=== PATIENT | female | born 1940 | race Caucasian/White ===

== ENCOUNTER 2016-04-17 19:33 | Inpatient (IN) | payer MEDICARE ==
[~2016-04-17] VITALS: Ht 170.2 cm; Wt 86.6 kg
[~2016-04-17 19:33] MED LIST: ASPI325T32 PO; CYAN250014 PO; EZET10TA PO; FELO5TAB4 PO; FURO40TA4 PO; GEMF600T3 PO; KEN1C TOP; METO25TA6 PO; MULT-1018 PO; RANI150T11 PO; TERB250T11 PO
[2016-04-17 21:14] VITALS: PULSE 72
[2016-04-17 21:18] VITALS: BP 124/52; PULSE 72; RESP 18; O2SAT 98
[2016-04-17] MEDS ORDERED: SODIUM CHLORIDE 0.9% IV SCH (22:00)
[2016-04-17] MEDS ORDERED: FAMOTIDINE IV SCH (22:00)
[2016-04-17] MEDS ORDERED: levoFLOXacin Inj 750 MG in IV Premix 1 EACH IV ONE (22:30)
[2016-04-17] MEDS: 0.9% Sodium Chloride 1,000 ML IV SCH (23:01)
[2016-04-17] MEDS ORDERED: Potassium Chloride Inj 20 MEQ in Dextrose 5% 250 ML IV ONE (23:20)
--- NOTE | 2016-04-17 23:22 | PCM.HPMED ---
Subjective Date of Service Apr 17, 2016 Primary Provider: Admitting Physician: Dipesh Carolina MD Primary Care Physician: Fredi Rivas MD Attending Physician: Dipesh Carolina MD Admit Status: Direct Admit Chief Complaint: Abdominal pain History of Present Illness: Patient is a 75 year old female with a history of GERD, gastric ulcers, peripheral vascular disease, and aortic stenosis. She is a direct transfer to [facility] [place] She presented to that ED on 04/17/16 with a 24 hour history of severe, constant abdominal pain. It is predominantly located in the RUQ and she describes it as sharp in nature. It caused nausea but no vomiting. She has had diarrhea but denies bloody stool or black looking stool. It is similar to the abdominal pain she had in the past when she had ulcers. She reports having been out of her ranitidine for the last two weeks. She denies fever, chills, chest pain, shortness of breath or edema. She has not had any other cold or flu like symptoms such as sore throat or cough. She has chronic nasal drainage and wheezing that has not worsened recently. She denies dysuria , hematuria. Her last EGD and colonoscopy were March 2015. Lab results sent over with the patient show a WBC 14.5, Hgb 9.3, Hct 26.9, platelets 213, sodium 139, potassium 3.3, chloride 97, CO2 26, BUN 65, Creatinine 2.91, glucose 90. Total bilirubin 0.6, ALT 10, AST 24. Call for transfer to [facility] made at 5:45PM. Also received recommendations from Dr. Mcclellan of GI. 2L IV fluids given as well as one dose of Zosyn. Patient admitted to [facility] for further evaluation. Review of Systems: A comprehensive review of systems was conducted with the patient and found to be negative except as above in the history of present illness. Allergies Coded Allergies: Glphxku-Dcu-Ung Reductase Inhibitor (Verified Allergy, Unknown, muscle pains, 03/08/16) codeine (Verified Allergy, Unknown, 03/08/16) erythromycin base (Verified Allergy, Unknown, 03/08/16) meperidine (Verified Allergy, Unknown, 03/08/16) omeprazole (Verified Allergy, Unknown, 03/08/16) Home Medications Reviewed list with patient and verified: Aspirin 325 mg daily Vitamin B12 (if she remembers to take it) Dronedarone 400 mg daily Felodipine 5 mg daily Furosemide 40 mg daily Gemfibrozil 600 mg daily Metoprolol tartrate 25 mg daily Ranitidine 150 mg daily Zetia 10 mg daily PMH Aortic stenosis, possibly rheumatic valve disease Carotid artery stenosis CKD stage 4 COPD Degenerative joint disease HTN HLP Peripheral vascular disease Upper GI bleed Surgical History Appendectomy Back surgery Breast biopsy Carotid endarterectomy Cataract extraction Cholecystectomy Iliac artery stent placement Ileofemoral endarterectomy Proximal profunda endarterectomy Tubal ligation Family History Brother with history of stomach ulcers; no other family history of GI disease Father - leukemia Family history of HTN, HLP, CAD Social History Hx Alcohol Use: No Hx Substance Use: No Hx Tobacco Use: Yes Smoking Status: Light Tobacco Smoker (60 pack year history; still smokes "sometimes" having had 2-3 cigarettes yesterday) Exam Vital Signs Vital Sign - Last Date Time Temp Pulse Resp B/P Pulse Ox O2 Delivery O2 Flow Rate FiO2 04/17/16 21:57 Supplement Oxygen 04/17/16 21:18 36.9 72 18 124/52 98 3.00 Exam Alert and oriented x3, no acute distress Head atraumatic, normocephalic PERRLA, EOMI, sclera anicteric Mucus membranes dry, no oral thrush observed No cervical lymphadenopathy, neck supple, nontender No JVD noted Cardiac tones regular rate and rhythm with IV/ systolic murmur appreciated throughout the chest radiating into the neck (loudest at RUSB) Lungs wheezing heard in the upper airways anteriorly, clear otherwise RUQ abdominal tenderness, non-distended, normoactive bowel tones, soft Correia absent Radial pulses normal and equivalent bilaterally, dorsalis pedis pulses difficult to appreciate bilaterally No cyanosis, clubbing or edema No ulcerations/open wounds Cranial nerves appear to be fully intact, normal speech, patient can move upper and lower limbs grossly Lab and Diagnostics X-Rays, CTs and MRIs CT abd/pelvis (from [place]): There are dense calcifications of the abdominal aorta. The patient has undergone bilateral iliac artery stenting. There are also a moderate amount of scattered arterial calcifications. There is a nonobstructing 3 mm stone within the mid-right kidney. There is a nonobstructing 1 mm stone within the upper pole of the left kidney. There is nonspecific stranding surrounding both kidneys. Within the limitations of an unenhanced exam, the rest of the solid viscera are unremarkable. There are cholecystectomy clips in the right upper quadrant. There is abnormal thickening of the cecum and descending colon with pericolonic stranding. The bowel wall measures up to 15 mm in thickness. The abnormal thickening extends up to the hepatic flexure. The transverse colon is unremarkable. The terminal ileum is unremarkable. The vermiform appendix is not visualized. There is edema tracking within the paracolic gutters bilaterally nonspecifically. The urinary bladder is unremarkable. The uterus and adnexa are unremarkable by CT. There are degenerative changes at the lumbosacral junction. There is no adenopathy. There is no free air or significant free fluid. Radiologist interpretation Assessment & Plan Patient is a 75 year old female with a history of GERD, gastric ulcers, peripheral vascular disease, and aortic stenosis. She is a direct transfer to [facility] from [place]. She presented to that ED on 04/17/16 with a 24 hour history of severe, constant abdominal pain. History of upper GI bleeding with ulceration. CT done at [place] shows possible ischemic colitis. Admitted to [facility] for further evaluation and management of ischemic colitis. 1. Possible ischemic colitis, acute, present on admission. - Begin Flagyl and ciprofloxacin. - NPO except some ice chips, then nothing after midnight. - IV fluids started - NS 100 ml/hr. - GI consulted and we appreciate their input. 2. History of gastric ulcers with possible acute GI bleed, present on admission. - Guaiac positive stool. Hasn't taken H2 blockers in two weeks. - GI has been consulted and we appreciate their input. - Re-start IV H2 blockers at this time. - NPO after midnight. - Continue to monitor Hgb/Hct. 3. Atrial fibrillation, chronic, presume stable. - Continue telemetry. - Only on full dose aspirin for anticoagulation. CHADS-VASC score 5 so something more should be considered. - Patient reportedly takes dronedarone 400 mg daily and metoprolol tartrate 25 mg daily. These medications need to be verified tomorrow AM. 4. Peripheral vascular disease, chronic, presume stable. - Continue gemfibrozil 600 mg daily, Zetia 10 mg daily. 5. Hypertension, chronic, presume stable. - Continue felodipine 5 mg daily. 6. Possible COPD. - No confirmatory testing in patient with 60 pack year history of smoking, worsening SOB with exertion, and wheezing. - No supplemental O2 at baseline. No medications for this at home. - Albuterol nebs available Q2 PRN. - O2 saturation goals 92-96%. - Recommend outpatient evaluation with PFT's. 7. CKD stage 4, chronic, presume stable. - Uncertain creatinine baseline. - Continue to monitor BMP. - Currently receiving IV fluids as patient is NPO. 8. Hypokalemia, acute, present on admission. - 20 mEq replacement given one time. - Continue to monitor BMP. 9. Medication reconciliation. - Discussed medication list with patient. She was not 100% certain of regimen. Please verify tomorrow AM dosing of all medications. Patient admitted under observation status with expected length of stay less than 2 midnights for severity of present symptoms, complexities of treatment plan and risk for adverse events. PCP Pee Rivas MD GI Prophylaxis: H2 shabnam VTE Prophylaxis Indicated: Contraindicated (Possible GI bleed) VTE Prophylaxis: SCDs Resuscitation Status: CPR: Attempt Resuscitation Attending Statement The patient was seen and examined together with Dr. Patel on 04/17 and I agree with the history, exam and plan as outlined in the note above. copies to: Fredi Rivas MD, Jennifer E DO Apr 17, 2016 22:39 Dipesh Carolina MD Apr 18, 2016 00:51
[2016-04-18] VITALS (8 sets, daily range): BP systolic 102–119; BP diastolic 35–53; PULSE 77–123; RESP 12–18; O2SAT 94–98
[2016-04-18 01:55] LABS: APPEARANCE,URINE CLEAR (CLEAR,HAZY); COLOR,URINE YELLOW (YELLOW); OCCULT BLOOD,URINE NEGATIVE (NEGATIVE); PH,URINE 5.5 (5.0-8.0); UROBILINOGEN,URINE NORMAL (NORMAL)
[2016-04-18] MEDS: metroNIDAZOLE Inj 500 MG in IV Premix 1 EACH IV SCH ×4 (02:10→20:19)
[2016-04-18 04:30] LABS: BASOPHILS % (AUTO) 0.1 % (0-3); EOSINOPHILS % (AUTO) 0 % (0-5); MONOCYTES % (AUTO) 6.7 % (4-12); Mean Corpuscular Hemoglobin 36.2 pg (27.0-35.0); Mean Corpuscular Volume 111.5 fL (81-100); NEUTROPHILS % (AUTO) 84.7 % (40-74); Platelet Count 146 bil/L (150-400)
[2016-04-18 04:56] LABS: Magnesium 1.8 mg/dL (1.6-2.6); Phosphorus 4.6 mg/dL (2.5-4.9)
--- NOTE | 2016-04-18 05:40 | NUR ---
PCC Admit Note Admitted patient @ [address] [facility] from [place] to [facility] 2021 for ischemic colitis, low H/H. Pt alert and oriented x 3, reported with generalized body weakness, on bedrest through the night, denies any abd pain. Started IV NS @ 100cc/hr, started levaquin and flagyl, K+ 3.3 [facility] ADMINISTRATOR, given kcl 20 meq IV, repeat K+ 3.7, AM H/H down to 7.9/24.3, Dr. Patel notified of H/H trends, ordered crossmatch, draw and hold for prbc. No signs of bleeding, no BM. Kept NPO
[2016-04-18] MEDS: 0.9% Sodium Chloride 1,000 ML IV SCH ×2 (08:30→20:18)
[2016-04-18] MEDS: Felodipine 5 mg ER24 Tablet PO SCH ×2 (08:40→20:21)
--- NOTE | 2016-04-18 12:38 | PCM.CHPMED ---
Subjective Date of Service: Apr 18, 2016 Provider requesting consult: Melody Patel DO Primary Physician: Admitting Physician: Dipesh Carolina MD Primary Care Physician: Fredi Rivas MD Attending Physician: Dipesh Carolina MD Chief Complaint: Chief Complaint: Abdominal pain History of Present Illness: Patient is a 75 year old female with a history of GERD, gastric ulcers, peripheral vascular disease, and aortic stenosis. She is a direct transfer to [facility] from [place]. She presented to that ED on 04/17/16 with a 24 hour history of severe, constant abdominal pain. It is predominantly located in the RUQ and she describes it as sharp in nature. It caused nausea but no vomiting. She has had diarrhea but denies bloody stool or black looking stool. It is similar to the abdominal pain she had in the past when she had ulcers. She reports having been out of her ranitidine for the last two weeks. She denies fever, chills, chest pain, shortness of breath or edema. She denies dysuria, hematuria. Her last EGD and colonoscopy were March 2015. EGD showed bleeding ulcers, colonoscopy was normal. Pill cam on September 2015 was apparently normal. She is on Aspirin for her afib but not warfarin due to her history of upper GI bleed. She was scheduled for evaluation for a left atrial appendage occlusion device in the near future. Lab results sent over with the patient show a WBC 14.5, Hgb 9.3, Hct 26.9, platelets 213, sodium 139, potassium 3.3, chloride 97, CO2 26, BUN 65, Creatinine 2.91, glucose 90. Total bilirubin 0.6, ALT 10, AST 24. Review of Systems: Comprehensive review of systems conducted and was negative except for the pertinent positives listed above. PMH Past Medical History Aortic stenosis, possibly rheumatic valve disease Carotid artery stenosis CKD stage 4 COPD Degenerative joint disease HTN HLP Peripheral vascular disease Upper GI bleed Surgical History Appendectomy Back surgery Breast biopsy Carotid endarterectomy Cataract extraction Cholecystectomy Iliac artery stent placement Ileofemoral endarterectomy Proximal profunda endarterectomy Tubal ligation Allergies: Coded Allergies: Bcdirsl-Lar-Jfx Reductase Inhibitor (Verified Allergy, Unknown, muscle pains, 03/08/16) codeine (Verified Allergy, Unknown, 03/08/16) erythromycin base (Verified Allergy, Unknown, 03/08/16) meperidine (Verified Allergy, Unknown, 03/08/16) omeprazole (Verified Allergy, Unknown, 03/08/16) Family History Family History Brother with history of stomach ulcers; no other family history of GI disease Father - leukemia Family history of HTN, HLP, CAD Social History Hx Alcohol Use: NoAlcoholic Drinks Per Day: "a glass of wine"Hx Substance Use : NoHx Tobacco Use: Yes Smoking Status: Light Tobacco Smoker (60 pack year history; still smokes "sometimes" having had 2-3 cigarettes yesterday) Exam Vital Signs Vital Sign - Last Date Time Temp Pulse Resp B/P Pulse Ox O2 Delivery O2 Flow Rate FiO2 04/18/16 08:22 36.8 83 16 108/35 96 Nasal Cannula 2.00 Intake and Output 04/17/16 04/17/16 04/18/16 Cumulative From/Thru 15:00 23:00 07:00 04/17/16 21:07 - 04/18/16 05:44 Intake Total 1133 ml 1133 ml Output Total 550 ml 550 ml Balance 583 ml 583 ml Intake Oral 50 ml 50 ml IV Total 1083 ml 1083 ml Output Urine Total 550 ml 550 ml # Voids 2 2 # Bowel Movements 0 0 Additional Information: General: Alert, Oriented X3, Cooperative, Mild distress 2/2 pain Head: Normocephalic, atraumatic. External ears normal. Eyes: PERRLA, EOMI. Anicteric sclerae. Mouth: Mouth Normal, Mucous Membranes Moist/[place] Neck: Neck supple with full range of motion. Chest & Lungs: Clear to auscultation bilaterally with no crackles, wheezes, or rhonchi. Cardiovascular: Regular Rate/Rhythm, Normal S1, Normal S2, Loud systolic murmur heard at right upper sternal border. Abdomen: Significant RUQ tenderness with rebound. Non-distended, No masses, Normoactive bowel tones Musculoskeletal: Normal Range of Motion Extremities: No cyanosis/clubbing/edema bilaterally Neurological: Grossly Neurologically Intact, Normal Speech Lab and Diagnostics Result Diagram: 04/18/16 0350 04/18/16 0350 Assessment & Plan Assessment Patient is a 75 year old female with a history of GERD, gastric ulcers, peripheral vascular disease, afib, and aortic stenosis. She is a direct transfer to [facility] from [place]. She presented to that ED on 04/17/16 with a 24 hour history of severe, constant abdominal pain. History of upper GI bleeding with ulceration. CT done [place] shows possible ischemic colitis. Admitted to [facility] for further evaluation and management of ischemic colitis. Today, abdominal pain has improved. She said it went from 9 out of 10 yesterday to 4 out of 10. Possible ischemic colitis, acute. - Pt has history of afib not adequately anticoagulated, severe abdominal pain, CT findings suspicious of ischemic colitis. Right sided colitis carries a poorer prognosis than left-sided. Unfortunately, given her Stage 4 CKD (Cr 2.81) , angiography is not plausible at this time. Will discuss possible colonoscopy and further management with Surgery. The indication for colonoscopy as for enhanced bowel diagnosis. However risk for perforation exists. And this risks discussed with the family and the patient. - Stool PCR pending - Continue Flagyl and ciprofloxacin. - IV fluids started - NS 100 ml/hr. History of gastric ulcers with possible acute GI bleed - Pt denies dark stool but has history of gastric ulcers and had guaiac positive stool. Hasn't taken H2 blockers in two weeks. Hb dropped from 8.5 to 7.9 overnight, but this may be hemodilution. - Re-start IV H2 blockers at this time. - Continue to monitor Hgb/Hct. - Transfuse if necessary; consider that she has a history of peripheral vascular disease and aortic stenosis. Atrial fibrillation, chronic - Continue telemetry. - Only on full dose aspirin for anticoagulation. CHADS-VASC score 5. Scheduled for eval for [place] appendage occlusion device. Agree with above. I seen and examined the patient with the resident. Problems: GI Prophylaxis: H2 shabnam VTE Prophylaxis Indicated: Contraindicated (Possible GI bleed) VTE Prophylaxis: SCDs VTE Mechanical Devices: Intermittant Pneumatic CD Resuscitation Status: CPR: Attempt Resuscitation Erasto Medina Apr 18, 2016 12:38 Kalyan Mcclellan MD Apr 18, 2016 13:44
--- NOTE | 2016-04-18 13:20 | NUR ---
Abd Pain Pt c/o abd pain, rating between 2-4/10. PRN Morphine 2mg IV effective for pain. Pt has denied any nausea. VSS, Tele SR in the 70's. Pt able to meet with physician and review plan of care. Cont to monitor.
--- NOTE | 2016-04-18 14:15 | PCM.PNMED ---
Subjective Date of Service Apr 18, 2016 Subjective She is still having right lower quadrant abdominal pain. No nausea. No diarrhea this morning. No fevers or chills. No chest pain or shortness of breath. Exam Vital Signs Vital Sign - Last Date Time Temp Pulse Resp B/P Pulse Ox O2 Delivery O2 Flow Rate FiO2 04/18/16 12:49 36.7 78 16 102/43 98 Nasal Cannula 2.00 Intake and Output 04/17/16 04/17/16 04/18/16 Cumulative From/Thru 15:00 23:00 07:00 04/17/16 21:07 - 04/18/16 05:44 Intake Total 1133 ml 1133 ml Output Total 550 ml 550 ml Balance 583 ml 583 ml Intake Oral 50 ml 50 ml IV Total 1083 ml 1083 ml Output Urine Total 550 ml 550 ml # Voids 2 2 # Bowel Movements 0 0 Exam Alert and oriented no acute distress Anicteric sclerae. Neck supple. Lungs are clear Heart is irregular. Abdomen is soft there is some tenderness in the right lower quadrant with some rebound. No guarding. No left lower quadrant rebound. Extremities are free of edema. Pedal pulses IVs and Medications Medications Reviewed: Medications were reviewed in detail Lab and Diagnostics Result Diagram: 04/18/16 0350 04/18/16 0350 X-Rays, CTs and MRIs CT abd/pelvis (from [place]): There are dense calcifications of the abdominal aorta. The patient has undergone bilateral iliac artery stenting. There are also a moderate amount of scattered arterial calcifications. There is a nonobstructing 3 mm stone within the mid-right kidney. There is a nonobstructing 1 mm stone within the upper pole of the left kidney. There is nonspecific stranding surrounding both kidneys. Within the limitations of an unenhanced exam, the rest of the solid viscera are unremarkable. There are cholecystectomy clips in the right upper quadrant. There is abnormal thickening of the cecum and descending colon with pericolonic stranding. The bowel wall measures up to 15 mm in thickness. The abnormal thickening extends up to the hepatic flexure. The transverse colon is unremarkable. The terminal ileum is unremarkable. The vermiform appendix is not visualized. There is edema tracking within the paracolic gutters bilaterally nonspecifically. The urinary bladder is unremarkable. The uterus and adnexa are unremarkable by CT. There are degenerative changes at the lumbosacral junction. There is no adenopathy. There is no free air or significant free fluid. Radiologist interpretation Assessment & Plan Patient is a 75 year old female with a history of GERD, gastric ulcers, peripheral vascular disease, and aortic stenosis. She is a direct transfer to [facility] from [place]. She presented to that ED on 04/17/16 with a 24 hour history of severe, constant abdominal pain. History of upper GI bleeding with ulceration. CT done at [place] shows possible ischemic colitis. Admitted to [facility] for further evaluation and management of ischemic colitis. 1. Ischemic colitis, acute, present on admission. - Begin Flagyl and ciprofloxacin. - NPO except some ice chips, then nothing after midnight. - IV fluids started - NS 100 ml/hr. - GI consulted and we appreciate their input. Her history is fairly consistent with ischemic colitis and CT imaging is also consistent. At this point we will treat her conservatively with fluid resuscitation as well as IV pain meds. We will also perform a duplex ultrasound of her mesenteric arteries. Doubt any acute thrombosis. She is of course to set up however with her history of atrial fibrillation and recent cessation of Coumadin. 2. History of gastric ulcers with possible acute GI bleed, present on admission. - Guaiac positive stool. Hasn't taken H2 blockers in two weeks. - GI has been consulted and we appreciate their input. - Re-start IV H2 blockers at this time. - NPO after midnight. - Continue to monitor Hgb/Hct. Although she is anemic this may all be a chronic anemia from chronic kidney disease. There is no clinical evidence of acute upper GI bleed. No report of melena. We will continue to follow her hematocrit. 3. Atrial fibrillation, chronic, presume stable. - Continue telemetry. - Only on full dose aspirin for anticoagulation. CHADS-VASC score 5 so something more should be considered. - Patient reportedly takes dronedarone 400 mg daily and metoprolol tartrate 25 mg daily. These medications need to be verified tomorrow AM. She apparently has a pending watchman procedure to close her atrial appendage N [place] at [place] in the next 30 time. 4. Peripheral vascular disease, chronic, presume stable. - Continue gemfibrozil 600 mg daily, Zetia 10 mg daily. 5. Hypertension, chronic, presume stable. - Continue felodipine 5 mg daily. 6. Possible COPD. - No confirmatory testing in patient with 60 pack year history of smoking, worsening SOB with exertion, and wheezing. - No supplemental O2 at baseline. No medications for this at home. - Albuterol nebs available Q2 PRN. - O2 saturation goals 92-96%. - Recommend outpatient evaluation with PFT's. 7. CKD stage 4, chronic, presume stable. - Uncertain creatinine baseline. - Continue to monitor BMP. - Currently receiving IV fluids as patient is NPO. We will watch her volume status and urine output closely. 8. Hypokalemia, acute, present on admission. - 20 mEq replacement given one time. - Continue to monitor BMP. 9. Medication reconciliation. - Discussed medication list with patient. She was not 100% certain of regimen. Please verify tomorrow AM dosing of all medications. Patient admitted under observation status with expected length of stay less than 2 midnights for severity of present symptoms, complexities of treatment plan and risk for adverse events. I believe this patient will require greater than 2 nights stay we will change her inpatient status. PCP Pee Rivas MD Pain Evaluation: Adequate Pain Control GI Prophylaxis: H2 shabnam VTE Prophylaxis: SCDs VTE Mechanical Devices: Intermittant Pneumatic CD Resuscitation Status: CPR: Attempt Resuscitation Time spent 30 minute Chaka Abdul MD Apr 18, 2016 14:15
--- NOTE | 2016-04-18 16:20 | NUR ---
Social Work Note: Initial Assessment Data& Assessment: EMR reviewed. SW met with pt and pt son Jalil at bedside to discuss discharge planning, SW role explained. Pt was resting at this time, pt son provided information. Liliana Vazquez is a 75 year old female admitted on 04/17/2016 for GI bleed and ischemic bowel. Pt has [employer] Medicare insurance coverage and sees Katy Rivas MD for primary care. Pt lives in [place] but has many supportive neighbors close by. Pt does not use any DME and is independent at baseline. Pt does not have HH or SNF hx. Pt does not have LTC insurance or VA benefits. Pt son believes pt does have DPOA paperwork and will look into bringing in a copy for her chart. SW provided phone number listed on white board. No other discharge needs identified at this time. SW to continue to follow. Plan: Anticipated discharge home via POV when medically ready. SW to continue to follow for MD and PT recommendations and evaluations. No other discharge needs identified at this time. SW to continue to follow. YOLANDE Villafana Addendum: 04/18/16 at 1623 by GIOVANNI SUBRAMANIAN Amended: Links added.
--- NOTE | 2016-04-18 16:29 | CONS ---
[address] [address] CONSULTATION REPORT PATIENT: BEHZAD RODRÍGUEZ : 1940 MR#: [id number] ADMIT: 04/17/2016 JOB ID: [id number] DATE OF SERVICE: 04/18/2016 CHIEF COMPLAINT: Right side Abdominal pain. HISTORY OF PRESENT ILLNESS: The patient is a 75-year-old female who was [facility] due to abdominal pain. The patient was here at [facility] about a month ago as well. The patient has been having chronic anemia with a history of upper GI bleed about a year ago which was treated at [facility]. While at [facility] a year ago she did undergo upper endoscopy, and also a colonoscopy which was reported by her son to be normal. The patient reports onset of right-sided abdominal pain 2 nights ago which is similar to the pain that she experienced a month ago. She thinks it was similar to the pain she had while she had the upper GI bleed. She had some nausea and some diarrhea. The patient underwent a CT scan evaluation on the [facility] and it demonstrated thickening of the cecum and also thickening of the "descending" colon. The bowel wall measured up to 15 mm in thickness. The abnormal thickening extends up to the hepatic flexure. The patient has been flown in from the [facility] overnight and has been started on IV antibiotics. I was consulted by Dr. Mcclellan of the GI service for evaluation. Currently the patient is sleeping comfortably in the room. The patient is a vasculopath with previous carotid surgery and also bilateral iliac stents and right-sided iliofemoral end arterectomy and also a right-sided proximal profunda endarterectomy. Patient still smokes cigarettes. PAST MEDICAL HISTORY: Aortic stenosis, hypertension, peripheral artery disease, atrial fibrillation, carotid endarterectomy, cataract surgery, cholecystectomy, COPD, degenerative joint disease, appendectomy, back surgery, breast biopsy, upper GI bleed from peptic ulcer in 2016, chronic anemia, chronic kidney disease, bilateral iliac stenting, tubal ligation, right-sided iliofemoral and profunda endarterectomy, and history of colonoscopy and pill CAM in 2016. MEDICATIONS: At home include albuterol, aspirin, vitamin B, Plendil, Lasix, Lopid, Lopressor, Zantac, and Zetia. [place] two sons and a daughter. She still occasionally smokes cigarettes. FAMILY HISTORY: Positive for coronary artery disease, hypertension, hyperlipidemia. ALLERGIES: STATINS, HMG CO-A REDUCTASE INHIBITOR, CODEINE, ERYTHROMYCIN BASE, DEMEROL, AND OMEPRAZOLE. REVIEW OF SYSTEMS: Positive for diarrhea, abdominal pain, and some nausea. All other systems reviewed and were negative. PHYSICAL EXAMINATION: The patient is currently in the hospital bed in no acute distress. Vitals show a temperature of 36.7, blood pressure 102/43, pulse of 78, respirations 16, her BMI is 30.9. Head is normocephalic, atraumatic. Neck is supple. Heart is irregularly irregular. Lungs are clear bilat. Abd is obese, soft on the left side, mild to moderate tenderness at R lateral abdomen. No peritoneal signs. Extremity shows no cyanosis. Neurologically intact and conversant. LABORATORY EXAMINATION: This morning shows a white blood count of 8, hematocrit 24.3, platelet count is 146. Sodium is 142, potassium 3.7, BUN is 61, creatinine 2.81. Total bilirubin 0.2. Her lactate is 0.5. The CT scan report from the outside facility shows abnormal thickening of the cecum and descending colon with pericolonic stranding. I suspect that this is possibly a typo and it actually should probably say cecum and ascending colon; however, I have no way to verify that the actual CT findings given that I am not able to see the images myself. ASSESSMENT: This is a 75-year-old female with right-sided abdominal pain with CT scan finding suspicious for R sided colitis. If we are able to have the images be sent to [facility], that will be very beneficial. The CT scan report is also helpful to obtain. The patient should be maintained on IV antibiotics. Given that the patient has had a colonoscopy within this past year, it is reassuring that there is no pathologic process such as cancer in the colon. Patient also had a pillCam test in September of 2015 which was reportedly normal per patient. It'd be helpful to obtain the pillCam and colonoscopy report from [facility]. We will follow the patient along with you. I did meet the patient's son and explained our role in her care. Patient should stop smoking cigarettes. EUGENE
[2016-04-18 18:46] LABS: Mean Corpuscular Hemoglobin 35.6 pg (27.0-35.0); Mean Corpuscular Volume 112.5 fL (81-100)
--- NOTE | 2016-04-18 18:47 | NUR ---
Abdominal pain. Pt. c/o moderate abdominal pain this afternoon /. 2 mg morphine administered and pt. states relief.
[2016-04-18] MEDS: Famotidine Inj 20 MG in IV Premix 1 EACH IV SCH (20:54)
[2016-04-18] MEDS: Ondansetron 2 mg/mL 2 mL Inj IVPUSH PRN (22:48)
[2016-04-19] VITALS (8 sets, daily range): BP systolic 98–127; BP diastolic 57–69; PULSE 120–136; RESP 14–20; O2SAT 90–95
[2016-04-19] MEDS: metroNIDAZOLE Inj 500 MG in IV Premix 1 EACH IV SCH ×2 (03:23→09:08)
[2016-04-19 04:00] LABS: Mean Corpuscular Hemoglobin 35.3 pg (27.0-35.0); Mean Corpuscular Volume 113.8 fL (81-100)
[2016-04-19] MEDS: 0.9% Sodium Chloride 1,000 ML IV SCH ×3 (04:08→21:44)
--- NOTE | 2016-04-19 04:45 | NUR ---
GI/VS/Respiratory/AM Labs Pt has tolerated PO intake of ice chips and small sip of water with PO medications. Pt continues to have nausea intermittently that is relieved by 4mg zofran IVP. Pt's abdomen remains soft and tender to slight pressure being applied. Pt went into A-Fib at 2200 with a rate in the 90s-110s and pt is asymptomatic. Pt's last VS's: temp:37.3_HR:123_BP:98/59_SpO2 on 2L NC: 90-92%. Pt c/o SOB while lying in the bed and was encouraged to cough and deep breath to open up lungs and possibly decrease pt's SOB. Pt did take a few deep breaths and coughed and SpO2 went up to 94%. The SpO2 did go back down to 90-92% so O2 was increased to 3L NC. Will continue to monitor pt's VS to see if temp increases and BP decreases and if pt's O2 needs increase. Pt's AM labs show that the pt's H/H slightly increased to 7.9/25.5 and the pt's lactic acid did slightly increase from 0.5 to 0.6 at 0330.
[2016-04-19] MEDS ORDERED: Levofloxacin 750 mg/150 mL D5W IV SCH (08:30)
[2016-04-19] MEDS: Felodipine 5 mg ER24 Tablet PO SCH ×2 (09:09→21:43)
[2016-04-19] MEDS: Diltiazem 5 mg/mL 5 mL Inj IVPUSH PRN ×3 (09:17→21:44)
--- NOTE | 2016-04-19 09:35 | PCM.PNMED ---
Subjective Date of Service Apr 19, 2016 Subjective Overnight, the pt had been having intermittent nausea with moderate abdominal pain. Her pain this morning is somewhat improved from yesterday, which she now rates 4/10. She reports nausea but no vomiting or diarrhea, fevers, or chills. She reports weakness and bloating. Exam Vital Signs Vital Sign - Last Date Time Temp Pulse Resp B/P Pulse Ox O2 Delivery O2 Flow Rate FiO2 04/19/16 04:29 37.3 123 14 98/59 93 Nasal Cannula 3.00 Intake and Output 04/18/16 04/18/16 04/19/16 Cumulative From/Thru 15:00 23:00 07:00 04/17/16 21:07 - 04/19/16 06:34 Intake Total 638 ml 1196 ml 1462 ml 4429 ml Output Total 400 ml 500 ml 1450 ml Balance 638 ml 796 ml 962 ml 2979 ml Intake Oral 480 ml 200 ml 730 ml IV Total 638 ml 716 ml 1262 ml 3699 ml Output Urine Total 400 ml 500 ml 1450 ml # Voids 2 4 # Bowel Movements 0 Exam General: Alert, Oriented X3, Cooperative, Mild distress 2/2 pain Head: Normocephalic, atraumatic. External ears normal. Eyes: PERRLA, EOMI. Anicteric sclerae. Mouth: Mouth Normal, Mucous Membranes Moist/[place] Neck: Neck supple with full range of motion. Chest & Lungs: Clear to auscultation bilaterally with no crackles, wheezes, or rhonchi. Cardiovascular: Regular Rate/Rhythm, Normal S1, Normal S2, Loud systolic murmur heard at right upper sternal border. Abdomen: Moderate RUQ tenderness with rebound. Non-distended, No masses, Normoactive bowel tones Musculoskeletal: Normal Range of Motion Extremities: No cyanosis/clubbing/edema bilaterally Neurological: Grossly Neurologically Intact, Normal Speech Lab and Diagnostics Result Diagram: 04/19/16 0335 04/18/16 0350 X-Rays, CTs and MRIs CT abd/pelvis (from Sunday): There are dense calcifications of the abdominal aorta. The patient has undergone bilateral iliac artery stenting. There are also a moderate amount of scattered arterial calcifications. There is a nonobstructing 3 mm stone within the mid-right kidney. There is a nonobstructing 1 mm stone within the upper pole of the left kidney. There is nonspecific stranding surrounding both kidneys. Within the limitations of an unenhanced exam, the rest of the solid viscera are unremarkable. There are cholecystectomy clips in the right upper quadrant. There is abnormal thickening of the cecum and descending colon with pericolonic stranding. The bowel wall measures up to 15 mm in thickness. The abnormal thickening extends up to the hepatic flexure. The transverse colon is unremarkable. The terminal ileum is unremarkable. The vermiform appendix is not visualized. There is edema tracking within the paracolic gutters bilaterally nonspecifically. The urinary bladder is unremarkable. The uterus and adnexa are unremarkable by CT. There are degenerative changes at the lumbosacral junction. There is no adenopathy. There is no free air or significant free fluid. Radiologist interpretation Assessment & Plan Patient is a 75 year old female with a history of GERD, gastric ulcers, peripheral vascular disease, afib, and aortic stenosis. She is a direct transfer to [facility] from [place]. She presented to that ED on 04/17/16 with a 24 hour history of severe, constant abdominal pain. History of upper GI bleeding with ulceration. CT done at [place] shows possible ischemic colitis. Admitted to [facility] for further evaluation and management of ischemic colitis. Possible ischemic colitis, acute. - Pt has history of afib not adequately anticoagulated, severe abdominal pain, CT findings suspicious of ischemic colitis. Right sided colitis carries a poorer prognosis than left-sided. Unfortunately, given her Stage 4 CKD (Cr 2.81) , angiography is not plausible at this time. Will hold off on colonoscopy based on discussion with surgery. Also recommend obtaining records of colonoscopy and PillCam from [facility]. - Stool PCR pending - Continue Flagyl and ciprofloxacin. - IV fluids started - NS 100 ml/hr. - Clear liquid diet but advised pt to avoid food if she continues to have abdominal pain. - Mesenteric arterial US pending History of gastric ulcers with possible acute GI bleed - Pt denies dark stool but has history of gastric ulcers and had guaiac positive stool. Hasn't taken H2 blockers in two weeks. Hb is stable at 7.9 currently. - Continue IV H2 blockers at this time. - Continue to monitor Hgb/Hct. - Transfuse if necessary Atrial fibrillation, chronic - Continue telemetry. - Only on full dose aspirin for anticoagulation. CHADS-VASC score 5. Scheduled for eval for LA appendage occlusion device. GI Prophylaxis: H2 shabnam VTE Prophylaxis: SCDs VTE Mechanical Devices: Intermittant Pneumatic CD Resuscitation Status: CPR: Attempt Resuscitation Erasto Medina Apr 19, 2016 09:35 - NPO after midnight. - Continue to monitor Hgb/Hct. Although she is anemic this may all be a chronic anemia from chronic kidney disease. There is no clinical evidence of acute upper GI bleed. No report of melena. We will continue to follow her hematocrit. 3. Atrial fibrillation, chronic, presume stable. - Continue telemetry. - Only on full dose aspirin for anticoagulation. CHADS-VASC score 5 so something more should be considered. - Patient reportedly takes dronedarone 400 mg daily and metoprolol tartrate 25 mg daily. These medications need to be verified tomorrow AM. She apparently has a pending watchman procedure to close her atrial appendage N [facility] in the next 30 time. 4. Peripheral vascular disease, chronic, presume stable. - Continue gemfibrozil 600 mg daily, Zetia 10 mg daily. 5. Hypertension, chronic, presume stable. - Continue felodipine 5 mg daily. 6. Possible COPD. - No confirmatory testing in patient with 60 pack year history of smoking, worsening SOB with exertion, and wheezing. - No supplemental O2 at baseline. No medications for this at home. - Albuterol nebs available Q2 PRN. - O2 saturation goals 92-96%. - Recommend outpatient evaluation with PFT's. 7. CKD stage 4, chronic, presume stable. - Uncertain creatinine baseline. - Continue to monitor BMP. - Currently receiving IV fluids as patient is NPO. We will watch her volume status and urine output closely. 8. Hypokalemia, acute, present on admission. - 20 mEq replacement given one time. - Continue to monitor BMP. 9. Medication reconciliation. - Discussed medication list with patient. She was not 100% certain of regimen. Please verify tomorrow AM dosing of all medications. Patient admitted under observation status with expected length of stay less than 2 midnights for severity of present symptoms, complexities of treatment plan and risk for adverse events. I believe this patient will require greater than 2 nights stay we will change her inpatient status. PCP Pee Rivas MD GI Prophylaxis: H2 shabnam VTE Prophylaxis: SCDs VTE Mechanical Devices: Intermittant Pneumatic CD Resuscitation Status: CPR: Attempt Resuscitation Erasto Medina Apr 19, 2016 09:35
--- NOTE | 2016-04-19 10:06 | DRSVH ---
PROCEDURE: X-RAY CHEST ONE VIEW, PORTABLE ([id number]) INDICATIONS: dyspnea TECHNIQUE: One view of the chest was acquired. COMPARISON: Outside Film, CT, CT ABD PELVIS WO CON, 04/17/2016, 16:25. Outside Film, CR, XR CHEST 1V W (PORTABLE), 03/07/2016, 17:06. FINDINGS: Surgical changes and devices: None. Lungs and pleura: No pleural effusions or pneumothorax. Lungs are abnormal with a mild pulmonary ed lakia pattern. Mediastinum: Mediastinal contours appear normal. Heart size is at the upper limits of normal. Bones and chest wall: No suspicious bony lesions. Overlying soft tissues appear unremarkable. IMPRESSION: Mild pulmonary edema pattern, heart size at the upper limits of normal. Dictated by: Carlos Guerra M.D. on 04/19/2016 at 10:03 Approved by: Carlos Guerra M.D. on 04/19/2016 at 10:04
--- NOTE | 2016-04-19 11:39 | PCM.PNSURG ---
Subjective Date of Service: Apr 19, 2016 Date of Service: Apr 19, 2016 Visit Information: Reason for Visit Gi Bleed, Ischemic Bowel Date of Admission: Apr 17, 2016 at 21:04 Hospital Day #3 Subjective: Patient is seen sitting up in bed. She appears comfortable. States pain and distention has improved since yesterday. Passing flatus. Denies bloody stools. Has had no stools since Sunday when she had nonbloody diarrhea. Has had some nausea which was relieved by Zofran. No emesis. Tolerating ice chips and diet has been advanced to clear liquid. Denies fever, chills, or night sweats. Postop General: Other (as above.) Gastrointestinal: Other (as above) Pain Management: IV Push (morphine) Objective Vital Sign- Last 8 Hours Date Time Temp Pulse Resp B/P Pulse Ox O2 Delivery O2 Flow Rate FiO2 04/19/16 09:36 136 04/19/16 09:00 37.2 125 18 127/69 95 Nasal Cannula 3.00 04/19/16 04:29 37.3 123 14 98/59 93 Nasal Cannula 3.00 Intake and Output- Last 8 Hour 04/19/16 Cumulative From/Thru 07:00 04/17/16 21:07 - 04/19/16 06:34 Intake Total 1462 ml 4429 ml Output Total 500 ml 1450 ml Balance 962 ml 2979 ml Intake Oral 200 ml 730 ml IV Total 1262 ml 3699 ml Output Urine Total 500 ml 1450 ml # Voids 4 # Bowel Movements 0 General: Alert, Oriented X3, Cooperative, No Acute Distress Abdomen: Soft, No masses, Other (tender right upper and lower quadrants with guarding. No peritoneal signs.) Result Diagram: 04/19/16 0335 04/18/16 0350 Lab & Micro Results: WBC yesterday AM 8.0 Yesterday p.m. 7.4 Today a.m. 7.6 H&H stable. Lactic acid 0.6 this morning up from 0.5 last evening. Diagnostics: Duplex ultrasound of mesenteric arteries pending. CT scan from [facility] per Dr. Orozco: thickened right colon with no free air. Assessment & Plan Impression Primary diagnosis: 75-year-old female with right-sided abdominal pain due to possible right-sided ischemic colitis. Guaiac-positive stools. Other diagnoses: Anemia, presumedly chronic due to kidney disease. No evidence of recurrent upper GI bleed or melena. Atrial fibrillation, chronic. On full dose aspirin. GERD, off her H2 blockers for 2 weeks. History of upper GI bleed about a year ago treated at [facility]. History of gastric ulcers. Peripheral vascular disease. History of bilateral iliac stents and right sided iliofemoral endarterectomy and right-sided proximal profunda endarterectomy. History of carotid surgery Aortic stenosis Hypertension, chronic. Possible COPD. CKD stage IV. Creatinine yesterday 2.81. Hypokalemia. Degenerative joint disease Problems: Plan Continue IV antibiotics, fluids, and pain medication. Continue clear liquid diet. Continue to monitor CBC. Duplex ultrasound of mesenteric arteries pending. Recommend obtaining records of colonoscopy and PillCam from [facility] , per Dr. Orozco. Stool cultures pending. VTE Prophylaxis: SCDs Resuscitation Status: CPR: Attempt Resuscitation Katherine Torres PA-C Apr 19, 2016 11:16
--- NOTE | 2016-04-19 12:31 | PCM.PNMED ---
Subjective Date of Service Apr 19, 2016 Subjective She still is some right lower quadrant abdominal pain but improved. She has had no Vance's overnight. No rectal bleeding. No nausea vomiting or fevers. No chest pain cough or dyspnea. Exam Vital Signs Vital Sign - Last Date Time Temp Pulse Resp B/P Pulse Ox O2 Delivery O2 Flow Rate FiO2 04/19/16 12:16 37.4 129 16 110/61 92 Nasal Cannula 3.00 Intake and Output 04/18/16 04/18/16 04/19/16 Cumulative From/Thru 15:00 23:00 07:00 04/17/16 21:07 - 04/19/16 06:34 Intake Total 638 ml 1196 ml 1462 ml 4429 ml Output Total 400 ml 500 ml 1450 ml Balance 638 ml 796 ml 962 ml 2979 ml Intake Oral 480 ml 200 ml 730 ml IV Total 638 ml 716 ml 1262 ml 3699 ml Output Urine Total 400 ml 500 ml 1450 ml # Voids 2 4 # Bowel Movements 0 Exam Alert oriented 3, no distress. Fluent speech. Anicteric sclera. Neck supple. Lungs are clear normal effort. Heart is irregular without murmur Abdomen is distended normal active bowel tones. There is some tenderness in the right lower quadrant and minimal guarding no rebound. Extremities are free of edema with good pedal pulses IVs and Medications Medications Reviewed: Medications were reviewed in detail Lab and Diagnostics Result Diagram: 04/19/16 0335 04/18/16 0350 X-Rays, CTs and MRIs CT abd/pelvis (from [place]): There are dense calcifications of the abdominal aorta. The patient has undergone bilateral iliac artery stenting. There are also a moderate amount of scattered arterial calcifications. There is a nonobstructing 3 mm stone within the mid-right kidney. There is a nonobstructing 1 mm stone within the upper pole of the left kidney. There is nonspecific stranding surrounding both kidneys. Within the limitations of an unenhanced exam, the rest of the solid viscera are unremarkable. There are cholecystectomy clips in the right upper quadrant. There is abnormal thickening of the cecum and descending colon with pericolonic stranding. The bowel wall measures up to 15 mm in thickness. The abnormal thickening extends up to the hepatic flexure. The transverse colon is unremarkable. The terminal ileum is unremarkable. The vermiform appendix is not visualized. There is edema tracking within the paracolic gutters bilaterally nonspecifically. The urinary bladder is unremarkable. The uterus and adnexa are unremarkable by CT. There are degenerative changes at the lumbosacral junction. There is no adenopathy. There is no free air or significant free fluid. Radiologist interpretation Assessment & Plan Patient is a 75 year old female with a history of GERD, gastric ulcers, peripheral vascular disease, and aortic stenosis. She is a direct transfer to [facility] from [place]. She presented to that ED on 04/17/16 with a 24 hour history of severe, constant abdominal pain. History of upper GI bleeding with ulceration. CT done at [place] shows possible ischemic colitis. Admitted to [facility] for further evaluation and management of ischemic colitis. 1. Ischemic colitis, acute, present on admission. -She was started on empiric antibiotics which I do not believe are indicated at this time. We will stop Flagyl and Cipro. - NPO except some ice chips, then nothing after midnight. We will now advanced to clear liquids. - IV fluids started - NS 100 ml/hr. - GI consulted and we appreciate their input. Her history is fairly consistent with ischemic colitis and CT imaging is also consistent. At this point we will treat her conservatively with fluid resuscitation as well as IV pain meds. We will also perform a duplex ultrasound of her mesenteric arteries. Doubt any acute thrombosis. She is of course to set up however with her history of atrial fibrillation and recent cessation of Coumadin. Surgery was also consulted. The patient had a duplex arterial of her abdomen but there is no visualization of her SMA. The patient clinically appears to be improving. She is not a candidate for contrast imaging with her chronic kidney disease stage IV. We will continue to treat her clinically and she appears to be improving. 2. History of gastric ulcers with possible acute GI bleed, present on admission. - Guaiac positive stool. Hasn't taken H2 blockers in two weeks. - GI has been consulted and we appreciate their input. - Re-start IV H2 blockers at this time. - NPO after midnight. - Continue to monitor Hgb/Hct. There appears to be no evidence of ongoing bleeding. She likely has a chronic anemia related to her chronic kidney disease. Will add iron studies. 3. Atrial fibrillation, chronic, presume stable. - Continue telemetry. - Only on full dose aspirin for anticoagulation. CHADS-VASC score 5 so something more should be considered. - Patient reportedly takes dronedarone 400 mg daily and metoprolol tartrate 25 mg daily. These medications need to be verified tomorrow AM. She apparently has a pending watchman procedure to close her atrial appendage N [place] at [place] in the next 30 time. 4. Peripheral vascular disease, chronic, presume stable. - Continue gemfibrozil 600 mg daily, Zetia 10 mg daily. 5. Hypertension, chronic, presume stable. - Continue felodipine 5 mg daily. 6. Possible COPD. - No confirmatory testing in patient with 60 pack year history of smoking, worsening SOB with exertion, and wheezing. - No supplemental O2 at baseline. No medications for this at home. - Albuterol nebs available Q2 PRN. - O2 saturation goals 92-96%. - Recommend outpatient evaluation with PFT's. 7. CKD stage 4, chronic, presume stable. - Uncertain creatinine baseline. - Continue to monitor BMP. - Currently receiving IV fluids as patient is NPO. We will watch her volume status and urine output closely. Follow creatinine. 8. Hypokalemia, acute, present on admission. - 20 mEq replacement given one time. - Continue to monitor BMP. 9. Medication reconciliation. - Discussed medication list with patient. She was not 100% certain of regimen. Please verify tomorrow AM dosing of all medications. Patient admitted under observation status with expected length of stay less than 2 midnights for severity of present symptoms, complexities of treatment plan and risk for adverse events. I believe this patient will require greater than 2 nights stay we will change her inpatient status. [facility] has been changed to inpatient. PCP Pee Rivas MD Pain Evaluation: Adequate Pain Control GI Prophylaxis: H2 shabnam VTE Prophylaxis: SCDs VTE Mechanical Devices: Intermittant Pneumatic CD Resuscitation Status: CPR: Attempt Resuscitation Time spent 30 minutes Chaka Abdul MD Apr 19, 2016 12:31
[2016-04-19 13:23] LABS: Unsaturated Iron Binding 220.1 ug/dL
--- NOTE | 2016-04-19 17:23 | NUR ---
Intermittently anxious today, Ativan given with good effect. Awakened from sleep this afternoon feeling anxious and short of breath, sats found to be 90% on 5L/NC. C/o dry nose, blood-tinged tissue when wiping nose. Added humidification to NC 02 with little change; now on oxymask, tolerating 02 better. Refused morphine today for discomfort, stating she doesn't want any more, and that discomfort was "tolerable". Remains in a-fib on tele, BP stable, afebrile.
[2016-04-19] MEDS: Albuterol 2.5 mg/3 mL Inhalation Solution NEB PRN ×2 (19:43→23:39)
[2016-04-19] MEDS: Famotidine Inj 20 MG in IV Premix 1 EACH IV SCH (21:44)
[2016-04-20] VITALS (14 sets, daily range): BP systolic 98–138; BP diastolic 52–93; PULSE 82–150; RESP 15–24; O2SAT 93–96
[2016-04-20] MEDS: Diltiazem 5 mg/mL 5 mL Inj IVPUSH PRN (01:56)
[2016-04-20 03:58] LABS: BASOPHILS % (AUTO) 0.1 % (0-3); EOSINOPHILS % (AUTO) 0 % (0-5); Mean Corpuscular Hemoglobin 34.9 pg (27.0-35.0); Mean Corpuscular Volume 111.8 fL (81-100); NEUTROPHILS % (AUTO) 83.3 % (40-74); Platelet Count 204 bil/L (150-400)
[2016-04-20] MEDS ORDERED: MeTOProlol 1 mg/mL 5 mL Inj IVPUSH ONE (04:50)
--- NOTE | 2016-04-20 07:17 | NUR ---
Cardiac Rhythm/Respiratory/Anxiety/GI/Ambulation Pt remained A-Fib 110s-140s throughout the night and the 5mg Cardizem IV push Q4H PRN for HR >110 did not bring the HR down. The pt received 5mg Cardizem x2 with no success in decreasing the HR. MD was notified and put in an order for 5mg metoprolol IV push which did bring the pt's HR down so that the pt was: A-Fib 90s-120s. Pt has felt SOB with activity and at rest since the beginning of the shift with no resolution. Pt did receive a few breathing treatments for the first time from RT that the pt said gave a slight, temporary relief of the pt's dyspnea but then the pt would c/o feeling SOB again on 5-6L oxymask or 4-6L NC with SpO2 88-91%. Pt's nose began to bleed during the shift so the pt is currently on oxymask at 8L with SpO2 92-94%. Pt's lungs have crackles throughout with end expiratory squeaks that can be heard on auscultation. MD was made aware. Pt was anxious throughout the night and required 0.5mg Ativan Q4H. Pt got up for the first time in days to get onto the BSC to have a BM and pass gas. Pt was unsteady and c/o dizziness when getting OOB to get onto the BSC and will require 1-2 person assist at this time.
--- NOTE | 2016-04-20 08:56 | PCM.PNSURG ---
Subjective Visit Information: Reason for Visit Gi Bleed, Ischemic Bowel Surgery/Surgery Date Post-Op Day # Date of Admission: Apr 17, 2016 at 21:04 Hospital Day # Subjective: R abd pain better, passed flatus and had a non-bloody BM; colonoscopy report from 04/2015 in chart. Objective Objective Awake in bed Abd: obese, almost no tenderness on R lat abdomen today Vital Sign- Last 8 Hours Date Time Temp Pulse Resp B/P Pulse Ox O2 Delivery O2 Flow Rate FiO2 04/20/16 04:27 150 24 133/65 96 OxyMask 10.00 04/20/16 04:21 143 Intake and Output- Last 8 Hour 04/20/16 Cumulative From/Thru 07:00 04/17/16 21:07 - 04/20/16 06:56 Intake Total 700 ml 7029 ml Output Total 550 ml 2450 ml Balance 150 ml 4579 ml Intake Oral 700 ml 2130 ml IV Total 4899 ml Output Urine Total 550 ml 2450 ml # Voids 4 # Bowel Movements 1 1 Result Diagram: 04/20/16 0315 04/19/16 0335 Assessment & Plan Impression R sided colitis, improving A fib Peripheral vascular disease Normal WBC Problems: Plan Continue current management No surgical intervention needed at this time OOB/physical therapy VTE Prophylaxis: SCDs Resuscitation Status: CPR: Attempt Resuscitation Eb Orozco MD Apr 20, 2016 08:56
[2016-04-20] MEDS: Felodipine 5 mg ER24 Tablet PO SCH (09:49)
[2016-04-20] MEDS: 0.9% Sodium Chloride 1,000 ML IV SCH ×2 (11:02→20:08)
[2016-04-20] MEDS: Albuterol 2.5 mg/3 mL Inhalation Solution NEB PRN (11:50)
[2016-04-20] MEDS ORDERED: MeTOProlol 1 mg/mL 5 mL Inj IV ONE (12:45)
[2016-04-20] MEDS ORDERED: Digoxin 0.25 mg/mL 2 mL Inj IV ONE (13:15)
[2016-04-20] MEDS: Ondansetron 2 mg/mL 2 mL Inj IVPUSH PRN (13:26)
--- NOTE | 2016-04-20 13:44 | PCM.PNMED ---
Subjective Date of Service Apr 20, 2016 Subjective Not feeling good. Having difficulty breathing, no actual chest pain, no nausea vomiting Exam Vital Signs Vital Sign - Last Date Time Temp Pulse Resp B/P Pulse Ox O2 Delivery O2 Flow Rate FiO2 04/20/16 12:29 36.5 135 24 113/62 94 OxyMask 9.00 Intake and Output 04/19/16 04/19/16 04/20/16 Cumulative From/Thru 15:00 23:00 07:00 04/17/16 21:07 - 04/20/16 06:56 Intake Total 1900 ml 700 ml 7029 ml Output Total 450 ml 550 ml 2450 ml Balance 1450 ml 150 ml 4579 ml Intake Oral 700 ml 700 ml 2130 ml IV Total 1200 ml 4899 ml Output Urine Total 450 ml 550 ml 2450 ml # Voids 4 # Bowel Movements 0 1 1 Exam Gen.- A+ response obese female lying in bed, she obviously looks poorly and is mouth breathing in moderate distress Eyes- open conjunctiva clear, pupils equal nonicteric sclera Mouth- oral mucosa moist, no exudate ENT- ears normal, nose normal Neck- supple/trach midline CVS- RRR 2/6 -gallop/heave, no pedal edema Lungs CTA shallow with poor air movement, breathing accessory muscle usage, respiratory distress, able to speak 3-4 words at a time GI- NABS/NT soft Musc- moving 4 no obvious deformity Neuro- cranial nerves II through XII intact to gross examination, nonfocal Skin- warm and dry, no rashes/lesions/wounds noted Psych-drowsy, arousable, pleasant asked to be "knocked out" Lab and Diagnostics [facility] DateTimeAnalyzed 16:58:00 -_ pH ____7.190 - 7.350 7.450 pCO2 ___54.3__ -mmHg 35.0 45.0 pO2 ___48.6__ -mmHg 69.0 116 HCO3- ___19.9__ -mmol/L 22.0 26.0 ABE ___-7.6__ -mmol/L -2.0 2.0 tHb ____8.4__ -g/dL Result Diagram: 04/20/16 0315 04/19/16 0335 X-Rays, CTs and MRIs CT abd/pelvis (from Sunday): There are dense calcifications of the abdominal aorta. The patient has undergone bilateral iliac artery stenting. There are also a moderate amount of scattered arterial calcifications. There is a nonobstructing 3 mm stone within the mid-right kidney. There is a nonobstructing 1 mm stone within the upper pole of the left kidney. There is nonspecific stranding surrounding both kidneys. Within the limitations of an unenhanced exam, the rest of the solid viscera are unremarkable. There are cholecystectomy clips in the right upper quadrant. There is abnormal thickening of the cecum and descending colon with pericolonic stranding. The bowel wall measures up to 15 mm in thickness. The abnormal thickening extends up to the hepatic flexure. The transverse colon is unremarkable. The terminal ileum is unremarkable. The vermiform appendix is not visualized. There is edema tracking within the paracolic gutters bilaterally nonspecifically. The urinary bladder is unremarkable. The uterus and adnexa are unremarkable by CT. There are degenerative changes at the lumbosacral junction. There is no adenopathy. There is no free air or significant free fluid. Radiologist interpretation Cardiac Echo Impressions ECHO 04/20 Note to reading Doc-- according to the patient, this is her [place] AV-- no heart procedures have been performed according to her (see prior echo report) Left ventricular wall thickness is mildly increased. The ejection fraction is estimated to be 60-65%. The left atrium is severely dilated. The aortic valve is trileaflet. There is moderate aortic stenosis. There has been no significant change since the previous study. There is mild to moderate tricuspid regurgitation. The right ventricular systolic pressure is estimated at 51 mmHg assuming a right atrial pressure of 15 mm Hg. Assessment & Plan Patient is a 75 year old female with a history of GERD, gastric ulcers, peripheral vascular disease, afib, and aortic stenosis. She is a direct transfer to [facility] from [place]. She presented to that ED on 04/17/16 with a 24 hour history of severe, constant abdominal pain. Acute respiratory failure-patient having CO2 retention and hypoxemia starting BiPAP, diuresing and giving blood, given that the acute duration and elevated d-dimer pursuing VQ scan I am in no hurry to anticoagulate this patient given her history of bleeding and her current anemia. Acute diastolic CHF-echo normal, BNP elevated hard to assess in the setting of CKD4, will give 1 dose furosemide Afib, chronic- RVR [id number] her aortic stenosis patient made to be developing CHF she is in clear distress. I personally evaluated EKG, stat echo was ordered as we have no prior medical Cont telemetry.Only on full dose aspirin for anticoagulation. CHADS-VASC score 5. reportedly scheduled for eval for LA appendage occlusion device. Digoxin loading/metoprolol or rate control Possible ischemic colitis, acute. R sided colitis . Unfortunately, given her Stage 4 CKD (Cr 2.81), angiography is not plausible at this time. Will hold off on colonoscopy based on discussion with surgery. Also recommend obtaining records of colonoscopy and [facility] from [facility]. Stool PCR 04/17 still pending. - IV fluids started - NS 100 ml/hr. CKD4- Cr 2.8 aprox stable subce 03/10 monitor and avoid nephro toxic drugs HTN-patient is lowish blood pressures going to discontinue the felodipine in order to optimize rate control with rate controlling BP meds Hx gastric ulcers ?acute GIB? Hasn't taken H2 blockers in two weeks. Hb stable at about 8.0. cont IV H2 blockers, monitor Hgb/Hct, transfuse prn Iron deficiency anemia-iron studies low 04/19 new from 03/10, hg aprox stable 9.0 03/10, transfuse 1 unit PRBC 04/20 to optimize patient Prophylaxis-DVT, SCDs only anticoagulation contraindicated, GI patient on IV famotidine at this point in time Disposition-full code from home Obviously medically complex patient time spent easily 90 minutes on her care today and could argue that she is ICU status and her heart rate in the 140s or achieving rate control by adding digoxin and IV metoprolol as diltiazem did not seem to do the job. Also working up acute respiratory failure etiologies. GI Prophylaxis: H2 shabnam VTE Prophylaxis: SCDs VTE Mechanical Devices: Intermittant Pneumatic CD Resuscitation Status: CPR: Attempt Resuscitation Everardo Hilliard MD Apr 20, 2016 13:44
--- NOTE | 2016-04-20 15:42 | DRSVH ---
[facility] [address] [place] [address] Echocardiogram Report Name: BEHZAD RODRÍGUEZ Date : 04/20/2016 Height: 65 in Hospital Exam Location: [facility] Weight: 195 lb Gender: Female BSA: 2.0 m2 : 1940 Age: 75 yrs BP: 113/62 mmHg Reason For Study: DYSPNEA, AFIB Ordering Physician: HOSPITALIST SVHPerformed By: Peterson Dejesus Referring Physician: Fredi Rivas Interpretation Summary Note to reading Doc-- according to the patient, this is her [place] AV-- no heart procedures have been performed according to her (see prior echo report) Left ventricular wall thickness is mildly increased. The ejection fraction is estimated to be 60-65%. The left atrium is severely dilated. The aortic valve is trileaflet. There is moderate aortic stenosis. There has been no significant change since the previous study. There is mild to moderate tricuspid regurgitation. The right ventricular systolic pressure is estimated at 51 mmHg assuming a right atrial pressure of 15 mm Hg. Procedure: A two-dimensional transthoracic echocardiogram with color flow and Doppler was performed. The study quality was technically adequate. Comparison is made with the echocardiogram of 08/07/14. The patient was in atrial fibrillation with rapid ventricular response during the exam with a heart rate exceeding 100 bpm. The patient had a heart rate of 90-136 beats per minute. Left Ventricle: The left ventricle is normal in size. Left ventricular wall thickness is mildly increased. The ejection fraction is estimated to be 60- 65%. There are no focal wall motion abnormalities. Right Ventricle: The right ventricle is normal in size and function. Atria: The left atrium is severely dilated. Right atrial size is normal. The interatrial septum is intact with no evidence for an atrial septal defect. Mitral Valve: There is moderate mitral annular calcification. The mitral valve mean pressure gradient is 6.4 mmHg. There is mild mitral stenosis. There is trace mitral regurgitation. Aortic Valve: The aortic valve is trileaflet. The aortic valve is moderately calcified. The peak aortic velocity is 3.4 m/sec. The aortic valve mean gradient is 27.1 mmHg. The calculated aortic valve area is 1.3 cm2. There is moderate aortic stenosis. There has been no significant change since the previous study. There is trace aortic regurgitation. Tricuspid Valve: The tricuspid valve leaflets are thin and pliable. There is mild to moderate tricuspid regurgitation. The right ventricular systolic pressure is estimated at 51 mmHg assuming a right atrial pressure of 15 mm Hg. Compared to the prior echo exam, there has been an increase in the severity of pulmonary hypertension. Pulmonic Valve: The pulmonic valve is normal in structure and function. There is trace pulmonic regurgitation. Great Vessels: The aortic root is normal size. The dimensions of the ascending aorta are normal. The pulmonary artery is normal size. The IVC is dilated (diameter is greater than 2.1 cm) and it collapses less than 50% with a sniff. This suggests a high right atrial pressure of 15 mm Hg. Pericardium/ Pleura There is no pericardial effusion. There is an anterior echo-free space consistent with a fat pad. There is a moderate left-sided pleural effusion. There is a moderately large right-sided pleural effusion. MMode/2D Measurements & Calculations LVIDd: 4.4 cm LA dimension: 4.2 cm RA long axis LVOT diam LVIDs: 2.3 cm FS: 47.6 % LA A2 area: 25.5 cm RA area Ao root diam EPSS: 0.63 cm LA A4 area: 31.2 cm IVSd: 0.94 cm LA length (vol): 6.6 cm : 17.7 cm Aortic Jxn LVPWd: 1.0 cm LA vol: 101.5 ml RA vol: 52.6 ml LA vol index RA asc Aorta : 26.9 mm2 Diam: 3.1 cm IVC diam: 2.5 cm LV garber. diameter/BSA LV sys. diameter/BSA (cm/m^2): 2.3 (cm/m^2): 1.2 Doppler Measurements & Calculations Ao V2 max: 338.2 cm/secMV E max kvng MV E/A: 92.0 TR max kvng Ao max P.8 mmHg : 188.8 cm/sec Med Peak E' Kvng : 298.9 cm/sec Ao mean P.1 mmHg MV A max kvng TR max PG LVOT Max Kvng E/E' med: 25.5 : 35.7 mmHg : 113.6 cm/sec PA V2 max MVA(VTI): 3.4 cm2 : 120.7 cm/sec YASMANY(I,D): 1.3 cm PA mean PG sev ratio: 0.37 PA Accel Time : 0.11 sec MV V2 mean Ao V2 mean LV V1 max PG PA V2 mean : 110.7 cm/sec : 248.6 cm/sec : 80.7 cm/sec MV mean P.4 mmHg Ao V2 VTI: 66.3 cmLV V1 VTI PA pr(Accel) MV V2 VTI: 26.3 cm : 24.3 cm : 31.6 mmHg MV dec time: 0.14 sec YASMANY(V,D): 1.2 cm2 YASMANY indexed to BSA (cm^2/m^2): 0.69 Electronically signed by: Dennis Mak on Reading Physician:04/20/2016 03:41 PM
--- NOTE | 2016-04-20 16:04 | NUR ---
NUTRITION ASSESSMENT Assess: Pt is a 75 yo female admitted w/ right abdominal pain and possible ischemic colitis. She is passing some flatus and having non-bloody stools. Pt PO intake is poor. States she has no appetite but is willing to try Ensure Clear on all trays. She is experiencing some SOB and is using an oxymask. PMHx: Aortic stenosis, carotid artery stenosis, CKD Stage 4, COPD, Degenerative joint disease, HNT, HLP, Peripheral vascular disease, upper GI bleed, history of gastric ulcers, cholecystectomy LABS: Reviewed. BUN 58, Broadcast Operations Manager 2.77, Ca 8.2, Alb 3.3 (04/18) MEDICATIONS: Reviewed. Zetia DIET: NPO/CL x 3 days PO intake - sips NUTRITION FOCUSED PHYSICAL ASSESSMENT: GI symptoms/stool: BM x 1 (04/20)Emil: 15 Skin integrity: No skin issues noted. Overall appearance: Obese woman w/ oxymask on. No signs of wasting observed. ANTHROPOMETRICS: Current Wt: 88.1 kg BMI: 32.3 kg/m2 Admit Wt: 82 kg IBW: 56.8 kgRecent wt changes: Wt increasing over last year ESTIMATED NEEDS: BMI, COPD Calories: 2712-6293 kcal/day (22-25 kcal/kg Admit BW) Protein: 85-100 g/day (1.5-1.8 g/kg IBW) Fluids: Approx 2000 ml (~1 ml/kcal/day) NUTRITION DIAGNOSIS: 1) Inadequate oral intake related to GI abnormalities as evidenced by NPO/CL diet x 3 days and possible ischemic colitis. 2) Increased nutrient needs related to chronic illness as evidenced by COPD. INTERVENTION: 1) Add Ensure Clear to all trays. MONITOR/EVALUATE: PO intake, GI, labs, nutrition status, POC. Will continue to monitor per moderate nutritional risk guidelines. Addendum: 04/20/16 at [address] Student documentation reviewed and I agree with the above assessment. Efren Gabriel, MS, RDN, CD
[2016-04-20 16:05] LABS: TROPONIN T < 0.010 ug/L (0.0-0.011)
[2016-04-20 16:08] LABS: Creatine Kinase 14 U/L (21-215)
--- NOTE | 2016-04-20 16:42 | PCM.PNMED ---
Subjective Date of Service Apr 20, 2016 Subjective Gastroenterology Progress Note Pt reports that her abdominal pain has been slowly improving and has not required morphine yet today. She denies N/V/D, fevers, chills. She has been passing gas and had a small bowel movement earlier. She does reports coughing, wheezing, and significant shortness of breath. Exam Vital Signs Vital Sign - Last Date Time Temp Pulse Resp B/P Pulse Ox O2 Delivery O2 Flow Rate FiO2 04/20/16 16:19 36.9 108 20 137/53 96 OxyMask 11.00 Intake and Output 04/19/16 04/19/16 04/20/16 Cumulative From/Thru 15:00 23:00 07:00 04/17/16 21:07 - 04/20/16 06:56 Intake Total 1900 ml 700 ml 7029 ml Output Total 450 ml 550 ml 2450 ml Balance 1450 ml 150 ml 4579 ml Intake Oral 700 ml 700 ml 2130 ml IV Total 1200 ml 4899 ml Output Urine Total 450 ml 550 ml 2450 ml # Voids 4 # Bowel Movements 0 1 1 Exam General: Alert, Oriented X3, Cooperative, Mild distress 2/2 pain Head: Normocephalic, atraumatic. External ears normal. Eyes: PERRLA, EOMI. Anicteric sclerae. Mouth: Mouth Normal, Mucous Membranes Moist/[place] Neck: Neck supple with full range of motion. Chest & Lungs: Clear to auscultation bilaterally with no crackles, wheezes, or rhonchi. Cardiovascular: Irregularly irregular, Normal S1, Normal S2, Loud systolic murmur heard at right upper sternal border. Abdomen: Mild RUQ tenderness to palpation with some rebound; improving. Non- distended, No masses, Hypoactive bowel tones Musculoskeletal: Normal Range of Motion Extremities: No cyanosis/clubbing/edema bilaterally Neurological: Grossly Neurologically Intact, Normal Speech Lab and Diagnostics Result Diagram: 04/20/16 0315 04/19/16 0335 X-Rays, CTs and MRIs CT abd/pelvis (from Sunday): There are dense calcifications of the abdominal aorta. The patient has undergone bilateral iliac artery stenting. There are also a moderate amount of scattered arterial calcifications. There is a nonobstructing 3 mm stone within the mid-right kidney. There is a nonobstructing 1 mm stone within the upper pole of the left kidney. There is nonspecific stranding surrounding both kidneys. Within the limitations of an unenhanced exam, the rest of the solid viscera are unremarkable. There are cholecystectomy clips in the right upper quadrant. There is abnormal thickening of the cecum and descending colon with pericolonic stranding. The bowel wall measures up to 15 mm in thickness. The abnormal thickening extends up to the hepatic flexure. The transverse colon is unremarkable. The terminal ileum is unremarkable. The vermiform appendix is not visualized. There is edema tracking within the paracolic gutters bilaterally nonspecifically. The urinary bladder is unremarkable. The uterus and adnexa are unremarkable by CT. There are degenerative changes at the lumbosacral junction. There is no adenopathy. There is no free air or significant free fluid. Radiologist interpretation Assessment & Plan Patient is a 75 year old female with a history of GERD, gastric ulcers, peripheral vascular disease, afib, and aortic stenosis. She is a direct transfer to [facility] from [place]. She presented to that ED on 04/17/16 with a 24 hour history of severe, constant abdominal pain. History of upper GI bleeding with ulceration. CT done at [facility] shows possible ischemic colitis. Admitted to [facility] for further evaluation and management of ischemic colitis. Possible ischemic colitis, acute. - Pt has history of afib not adequately anticoagulated, severe abdominal pain, CT findings suspicious of ischemic colitis. Right sided colitis carries a poorer prognosis than left-sided. Unfortunately, given her Stage 4 CKD (Cr 2.81) , angiography is not plausible at this time. Will hold off on colonoscopy based on discussion with surgery. She appears to be improving clinically, so we will continue medical management at this time. - Stool PCR pending - Continue Flagyl and ciprofloxacin. - IV fluids started - NS 100 ml/hr. - Clear liquid diet - Mesenteric arterial US pending History of gastric ulcers with possible acute GI bleed - Pt denies dark stool but has history of gastric ulcers and had guaiac positive stool. Hasn't taken H2 blockers in two weeks. Hb is stable at 7.9 currently. - Continue IV H2 blockers at this time. - Continue to monitor Hgb/Hct. - Transfuse if necessary I have seen and examined the patient and agree with above. GI Prophylaxis: H2 shabnam VTE Prophylaxis: SCDs VTE Mechanical Devices: Intermittant Pneumatic CD Resuscitation Status: CPR: Attempt Resuscitation Erasto Medina 26, 2017 16:42 Kalyan Mcclellan MD Apr 21, 2016 17:10 Erasto Medina Apr 20, 2016 16:42
[2016-04-20] MEDS: MeTOProlol 1 mg/mL 5 mL Inj IVPUSH SCH ×2 (16:55→20:34)
--- NOTE | 2016-04-20 17:02 | ABG ---
DateTimeAnalyzed 16:58:00 -_ pH ____7.190 - 7.350 7.450 pCO2 ___54.3__ -mmHg 35.0 45.0 pO2 ___48.6__ -mmHg 69.0 116 HCO3- ___19.9__ -mmol/L 22.0 26.0 ABE ___-7.6__ -mmol/L -2.0 2.0 tHb ____8.4__ -g/dL O2Hb ___80.1__ -% COHb ____1.3__ -% MetHb ____1.0__ -% sO2 ___82.0__ -% FIO2 ___80.0__ -% Drawn By as - Date/Time Notified____ 17:02:00 -_ Liter_Flow ___11.0__ -L/min Oxygen Device 1 __oxymask - Notified By RC - Notified Whom dr radvany - B 771 -mmHg tO2 ____9.5__ -Vol% Chkaa test _Positive -
[2016-04-20] MEDS ORDERED: Furosemide 10 mg/mL 4 mL Inj IVPUSH ONE ×2 (18:05)
--- NOTE | 2016-04-20 19:03 | NUR ---
Respiratory/Cardiac Patient with increasing O2 needs today going from 8L oxymask to 11 L oxymask to maintain Sats >92% Lungs decreased t/o and occ expiratory wheeze noted. Tele AFib with RVR and MD was made aware that rate was not controlled (110-130s) at beginning of shift. MD paged regarding all above mentioned problems and then orders received. Gave IV lopressor and IV Dig with good effect. HR is in the 90s currently. Once ABG was obtained, orders were received to place patient on bipap. Patient is on bipap at 50% FIO2. 40 Mg IV Lasix given prior to blood transfusion. Sats 95%. VQ scan scheduled for tomorrow. Daughter at bedside updated on todays happenings.
[2016-04-20] MEDS ORDERED: Digoxin 0.25 mg/mL 2 mL Inj IV SCH (20:00)
[2016-04-20 20:18] LABS: Creatine Kinase 15 U/L (21-215)
[2016-04-20] MEDS ORDERED: 0.9% Sodium Chloride 250 ML ONE (20:30)
[2016-04-20] MEDS: Famotidine Inj 20 MG in IV Premix 1 EACH IV SCH (20:34)
[2016-04-21] VITALS (18 sets, daily range): BP systolic 128–156; BP diastolic 57–88; PULSE 84–112; RESP 13–24; O2SAT 93–99
[2016-04-21] MEDS: MeTOProlol 1 mg/mL 5 mL Inj IVPUSH SCH ×6 (00:17→21:11)
[2016-04-21] MEDS: Albuterol 2.5 mg/3 mL Inhalation Solution NEB PRN (00:28)
--- NOTE | 2016-04-21 01:14 | NUR ---
bipap/confusion/nose bleed pt wearing bipap for a short time after daughter left, pt with a slight nose bleed, placed oxy mask on pt, i unit RBC infusing slowly, pt keeps pulling at wires and lines, ativan 0.5mg IV given with little effect. pt becoming very confused called daughter and pt stating "you have her snowed" "you have kidnapped me", pt refusing bipap, called MD received order to for Afrin nose spray and OT dose of PO haldol gave, pts daughter doesn't want us to restrain her and asked staff to call if the haldol dosen't start working in an hour and she will come in and sit with pt. tele AFIB rate 90-120s BP stable.
[2016-04-21 02:02] LABS: Creatine Kinase 20 U/L (21-215)
[2016-04-21] MEDS ORDERED: Haloperidol 5 mg/mL Inj IVPUSH ONE (02:05)
[2016-04-21] MEDS: Ondansetron 2 mg/mL 2 mL Inj IVPUSH PRN ×2 (02:32→14:35)
[2016-04-21] MEDS ORDERED: Furosemide 10 mg/mL 4 mL Inj IVPUSH ONE (03:55)
--- NOTE | 2016-04-21 04:13 | ABG ---
DateTimeAnalyzed 04:08:00 -_ pH ____7.197 - 7.350 7.450 pCO2 ___53.6__ -mmHg 35.0 45.0 pO2 ___42.3__ -mmHg 69.0 116 HCO3- ___20.0__ -mmol/L 22.0 26.0 ABE ___-7.6__ -mmol/L -2.0 2.0 tHb ____9.7__ -g/dL O2Hb ___75.2__ -% COHb ____1.3__ -% MetHb ____1.1__ -% sO2 ___77.0__ -% FIO2 ___60.0__ -% Drawn By RB - Liter_Flow ___10.0__ -L/min Oxygen Device 1 __oxymask - Notified By RB - Notified Whom RN - B 773 -mmHg tO2 ___10.3__ -Vol% Chaka test _Positive -
--- NOTE | 2016-04-21 05:51 | NUR ---
lasix/eid/bipap pt refusing to wear bipap, ABGs still very poor, order to give 40MG IV lasix and eid, after lasix and eid draining 500cc pt allowing the bipap to be put back on. pt with periods of confusion, trying to climb out of bed and pulling at lines or talking to people not in the room. lots of reassurance. son will be here in the morning around 10. tele AFIB rate 90-110s, IV lopressor q4 hours.
--- NOTE | 2016-04-21 08:12 | PCM.PNMED ---
Subjective Date of Service Apr 21, 2016 Subjective Patient still feels poorly, having difficulty breathing but no chest pain and minimal nocturnal nausea and vomiting abdominal pain is resolved. She is having bowel movements without blood or not diarrhea but she does complain of urgency Exam Vital Signs Vital Sign - Last Date Time Temp Pulse Resp B/P Pulse Ox O2 Delivery O2 Flow Rate FiO2 04/21/16 04:56 96 04/21/16 04:42 20 147/60 93 BiPAP 50 04/21/16 03:42 37.0 9.00 Intake and Output 04/20/16 04/20/16 04/21/16 Cumulative From/Thru 15:00 23:00 07:00 04/17/16 21:07 - 04/21/16 05:55 Intake Total 988 ml 955 ml 518 ml 9490 ml Output Total 400 ml 1300 ml 4150 ml Balance 988 ml 555 ml -782 ml 5340 ml Intake Oral 450 ml 100 ml 2680 ml IV Total 988 ml 505 ml 60 ml 6452 ml Packed Cells 358 ml 358 ml Output Urine Total 400 ml 1000 ml 3850 ml Urine/Stool Mix 300 ml 300 ml # Voids 4 # Bowel Movements 1 2 Exam Gen.- A+ responsive obese female lying in bed, she looks like she feels better and is mouth breathing but less so than 04/20 Eyes- open conjunctiva clear, pupils equal nonicteric sclera Mouth- oral mucosa moist, no exudate ENT- ears normal, nose normal Neck- supple/trach midline CVS- RRR 2/6 -gallop/heave, no pedal edema Lungs CTA shallow with poor air movement, breathing accessory muscle usage, respiratory distress, able to speak 3-4 words at a time GI- NABS/NT soft Musc- moving 4 no obvious deformity Neuro- cranial nerves II through XII intact to gross examination, nonfocal Skin- warm and dry, no rashes/lesions/wounds noted Psych-drowsy, arousable, Lab and Diagnostics ABGDateTimeAnalyzed 16:59:00 -_ pH ____7.229 - 7.350 7.450 pCO2 ___50.6__ -mmHg 35.0 45.0 pO2 ___83.3__ -mmHg 69.0 116 HCO3- ___20.4__ -mmol/L 22.0 26.0 ABE ___-6.5__ -mmol/L -2.0 2.0 ABG DateTimeAnalyzed 04:08:00 -_ pH ____7.197 - 7.350 7.450 pCO2 ___53.6__ -mmHg 35.0 45.0 pO2 ___42.3__ -mmHg 69.0 116 HCO3- ___20.0__ -mmol/L 22.0 26.0 ABE ___-7.6__ -mmol/L -2.0 2.0 Result Diagram: 04/21/16 0120 04/19/16 0335 Microbiology None X-Rays, CTs and MRIs CT chest w/o constrast IMPRESSION: 04/18 personally/concurrently reviewed [place] 04/21 1. Bilateral patchy airspace infiltrates with bibasilar consolidations consistent with pneumonia. 2. Small to moderate bilateral pleural effusions. 3. Probable right hilar adenopathy. 4. Severe atherosclerosis. There is severe aortic stenosis at the level of diaphragmatic crura. Dictated by: Sekou Ojeda M.D. on 04/21/2016 at 16:17 V/Q 04/21 IMPRESSION: Low probability for acute pulmonary embolism. Dictated by: Sekou Ojeda M.D. on 04/21/2016 at 11:24 CT abd/pelvis (from [place]): 04/17 There are dense calcifications of the abdominal aorta. The patient has undergone bilateral iliac artery stenting. There are also a moderate amount of scattered arterial calcifications. There is a nonobstructing 3 mm stone within the mid-right kidney. There is a nonobstructing 1 mm stone within the upper pole of the left kidney. There is nonspecific stranding surrounding both kidneys. Within the limitations of an unenhanced exam, the rest of the solid viscera are unremarkable. There are cholecystectomy clips in the right upper quadrant. There is abnormal thickening of the cecum and descending colon with pericolonic stranding. The bowel wall measures up to 15 mm in thickness. The abnormal thickening extends up to the hepatic flexure. The transverse colon is unremarkable. The terminal ileum is unremarkable. The vermiform appendix is not visualized. There is edema tracking within the paracolic gutters bilaterally nonspecifically. The urinary bladder is unremarkable. The uterus and adnexa are unremarkable by CT. There are degenerative changes at the lumbosacral junction. There is no adenopathy. There is no free air or significant free fluid. Radiologist interpretation Cardiac Echo Impressions ECHO 04/20 Note to reading Doc-- according to the patient, this is her [place] AV-- no heart procedures have been performed according to her (see prior echo report) Left ventricular wall thickness is mildly increased. The ejection fraction is estimated to be 60-65%. The left atrium is severely dilated. The aortic valve is trileaflet. There is moderate aortic stenosis. There has been no significant change since the previous study. There is mild to moderate tricuspid regurgitation. The right ventricular systolic pressure is estimated at 51 mmHg assuming a right atrial pressure of 15 mm Hg. Assessment & Plan Patient is a 75 year old female with a history of GERD, gastric ulcers, peripheral vascular disease, afib, and aortic stenosis. She is a direct transfer to [facility] from [place]. She presented to that ED on 04/17/16 with a 24 hour history of severe, constant abdominal pain. Acute respiratory failure-patient having CO2 retention and hypoxemia BiPAP , furosemide 40mgIV/1U PRBCs 04/20 in pm, VQ low probability, CT shows consolidations/effusion consistent with pneumonia Bilateral pneumonia/effusion-consult and pulmonary getting thoracentesis, antibiotics on hold pending pulmonary consultation 04/21 Acute/chronic resp acidosis w/ metabolic acidosis/chronic metabolic alkalosis -following blood gases checking lactic acid level. Acute diastolic CHF-echo normal 04/20, BNP elevated hard to assess in the setting of CKD4, will give 1 dose furosemide 04/21, renal function only moderately worse deferred to pulmonary whether to give more diuresis. IV fluids discontinued 04/20. Volume status is not entirely clear. Afib, chronic- RVR [id number] her aortic stenosis patient made to be developing CHF she is in clear distress. I personally evaluated EKG, stat echo was ordered as we have no prior medical Cont telemetry.Only on full dose aspirin for anticoagulation. CHADS-VASC score 5. reportedly scheduled for eval for LA appendage occlusion device. Digoxin loading/metoprolol or rate control Possible ischemic colitis, acute. R sided colitis . Unfortunately, given her Stage 4 CKD (Cr 2.81), angiography is not plausible at this time. No colonoscopy for now 04/20 surgery signing off 04/21. Also recommend obtaining records of colonoscopy and [facility] from [facility]. Stool PCR 04/17 still pending. CKD4- Cr 2.8 aprox stable subce 03/10 monitor and avoid nephro toxic drugs HTN-patient is lowish blood pressures going to discontinue the felodipine in order to optimize rate control with rate controlling BP meds Hx gastric ulcers ?acute GIB? Hasn't taken H2 blockers in two weeks. Hb stable at about 8.0. cont IV H2 blockers stopped 04/21, monitor Hgb/Hct, transfuse prn, will transition to PPI daily IV 04/21 Iron deficiency anemia-iron studies low 04/19 new from 03/10, hg aprox stable 9.0 03/10, transfuse 1 unit PRBC 04/20 to optimize patient, will give IV iron 200 makes alternating days for total of 1 g starting 04/21-05/01 Prophylaxis-DVT, SCDs only anticoagulation contraindicated, GI patient on IV famotidine at this point in time Disposition-full code from home Medically complex patient pulmonary/ICU consultation requested today 04/21. Thank you for your assistance. GI Prophylaxis: H2 shabnam VTE Prophylaxis: SCDs VTE Mechanical Devices: Intermittant Pneumatic CD Resuscitation Status: CPR: Attempt Resuscitation Everardo Hilliard MD Apr 21, 2016 08:11
[2016-04-21 08:55] LABS: BASOPHILS % (AUTO) 0.1 % (0-3); EOSINOPHILS % (AUTO) 0 % (0-5); MONOCYTES % (AUTO) 8.2 % (4-12); Mean Corpuscular Hemoglobin 34.5 pg (27.0-35.0); Mean Corpuscular Volume 105.8 fL (81-100); NEUTROPHILS % (AUTO) 85.7 % (40-74); Platelet Count 189 bil/L (150-400)
--- NOTE | 2016-04-21 09:00 | PCM.PNSURG ---
Subjective Visit Information: Reason for Visit Gi Bleed, Ischemic Bowel Surgery/Surgery Date Post-Op Day # Date of Admission: Apr 17, 2016 at 21:04 Hospital Day #5 Subjective: No abdominal pain. 2 formed bowel movements that did not have blood overnight. Postop General: Shortness of Breath Gastrointestinal: Passing Stool Pain Management: PO (Tylenol), IV Push (intermittent IV morphine) Neurological: Confusion Postop Activity: Other (bed rest) Objective Vital Sign- Last 8 Hours Date Time Temp Pulse Resp B/P Pulse Ox O2 Delivery O2 Flow Rate FiO2 04/21/16 04:56 96 04/21/16 04:42 112 20 147/60 93 BiPAP 50 04/21/16 03:42 37.0 108 16 137/72 94 OxyMask 9.00 04/21/16 03:42 Supplement Oxygen Intake and Output- Last 8 Hour 04/21/16 Cumulative From/Thru 07:00 04/17/16 21:07 - 04/21/16 05:55 Intake Total 518 ml 9490 ml Output Total 1300 ml 4150 ml Balance -782 ml 5340 ml Intake Oral 100 ml 2680 ml IV Total 60 ml 6452 ml Packed Cells 358 ml 358 ml Output Urine Total 1000 ml 3850 ml Urine/Stool Mix 300 ml 300 ml # Voids 4 # Bowel Movements 2 General: Alert, Cooperative, Moderate Distress, Other (not oriented to day. Confused.) Lungs: Rhonchorus Heart: Other (irregular) Abdomen: Soft, Non-tender (to deep palpation in the right lower quadrant), Non- distended, No masses Extremities: Thigh&Calf Soft/Nontender Neuro: Normal Speech Result Diagram: 04/21/16 0120 04/19/16 0335 Assessment & Plan Impression Primary diagnoses: 1. Right-sided colitis. Improving, virtually resolved. 2. Acute respiratory failure 3. Acute diastolic congestive heart failure. 4. Iron deficiency anemia Other diagnoses: 1. Aortic stenosis, possibly rheumatic valve disease 2. Carotid artery stenosis 3. CKD stage 4 4. COPD 5. Degenerative joint disease 6. HTN 7. HLP 8. Peripheral vascular disease Problems: Plan Initiate oral diet, advance as tolerated. Pain Management: Tylenol Intermittent IV morphine VTE Prophylaxis: SCDs Resuscitation Status: CPR: Attempt Resuscitation Louis Farnsworth PA-C Apr 21, 2016 09:00
[2016-04-21 09:23] LABS: Creatine Kinase 23 U/L (21-215)
[2016-04-21 09:27] LABS: TROPONIN T < 0.010 ug/L (0.0-0.011)
--- NOTE | 2016-04-21 10:55 | ABG ---
DateTimeAnalyzed 10:50:00 -_ pH ____7.332 - 7.350 7.450 pCO2 ___32.3__ -mmHg 35.0 45.0 pO2 ___71.8__ -mmHg 69.0 116 HCO3- ___16.6__ -mmol/L 22.0 26.0 ABE ___-8.1__ -mmol/L -2.0 2.0 tHb ____5.7__ -g/dL O2Hb __100.7__ -% COHb ____0.6__ -% MetHb ___-1.6__ -% sO2 ___99.7__ -% FIO2 ___40.0__ -% Drawn By MT - Date/Time Notified____ 10:55:00 -_ Oxygen Device 1 VENTI MASK - Notified By MT - Notified Whom RN - B 774 -mmHg tO2 ____8.1__ -Vol% Chaka test _Positive -
--- NOTE | 2016-04-21 11:31 | DRSVH ---
PROCEDURE: NM LUNG VQ RADIOPHARMACEUTICAL: 26.1 mCi Tc-99m DTPA aerosol by inhalation and 6.2 mCi Tc-99m MAA intravenously. INDICATIONS: DYSPNEA, ELEVATED D DIMER. TECHNIQUE: Ventilation images were obtained first with Tc-99m DTPA aerosol. Subsequently, perfusion images were acquired after intravenous injection of Tc-99m MAA. Anterior, posterior, WHITLEY, [place], RPO, LPO, left and right lateral views were obtained. COMPARISON: [facility], CR, XR CHEST 1VW (PORTABLE), 04/19/2016, 8:49. FINDINGS: The comparison chest radiograph dated 04/19/2016 demonstrates bilateral interstitial infiltr ates. No pleural effusions. Technetium 99m DTPA medication images demonstrate central airway depositi on of aerosol, which may be secondary to chronic obstructive lung disease. Perfusion images demonstra te normal distribution of activity without pleural-based, segmental or subsegmental ventilation-perfu raj mismatches. IMPRESSION: Low probability for acute pulmonary embolism. Dictated by: Sekou Ojeda M.D. on 04/21/2016 at 11:24 Approved by: Sekou Ojeda M.D. on 04/21/2016 at 11:30
--- NOTE | 2016-04-21 11:54 | ABG ---
DateTimeAnalyzed 11:49:00 -_ pH ____7.190 - 7.350 7.450 pCO2 ___54.6__ -mmHg 35.0 45.0 pO2 ___82.5__ -mmHg 69.0 116 HCO3- ___20.0__ -mmol/L 22.0 26.0 ABE ___-7.7__ -mmol/L -2.0 2.0 tHb ____9.5__ -g/dL O2Hb ___93.0__ -% COHb ____1.2__ -% MetHb ____1.1__ -% sO2 ___95.2__ -% FIO2 ____0.7__ -% Drawn By NB - Date/Time Notified____ 11:53:00 -_ Oxygen Device 1 _oxy mask - Notified By NB - Notified Whom _bree/ RN - B 774 -mmHg tO2 ___12.5__ -Vol% Chaka test N/A -
[2016-04-21] MEDS: Digoxin 0.25 mg/mL 2 mL Inj IV SCH (12:53)
--- NOTE | 2016-04-21 14:55 | NUR ---
NUTRITION FOLLOW-UP Assess: Pt is a 75 yo female admitted w/ right abdominal pain and possible ischemic colitis. Pt w/ 2 non-bloody BMs overnight. Per surgery, nursing is to advance pt's diet as tolerated - pt now on soft diet. Pt w/ minimal PO intake on clear liquid diet and requiring BiPAP. During visit pt was too lethargic to participate - diet discussed with family. PMHx: Aortic stenosis, carotid artery stenosis, CKD Stage 4, COPD, Degenerative joint disease, HNT, HLP, Peripheral vascular disease, upper GI bleed, history of gastric ulcers, cholecystectomy LABS: Reviewed. BUN 52, Cr 2.83 MEDICATIONS: Reviewed. Lopressor DIET: Soft, No PO recorded (NPO/CL x 3 days, PO intake sips) NUTRITION FOCUSED PHYSICAL ASSESSMENT: GI symptoms/stool: BM x 2 (04/20) Emil: 15 Skin integrity: No skin issues noted. Overall appearance: Obese woman w/ BiPAP on. No signs of wasting observed. ANTHROPOMETRICS: Current Wt: 88.5 kg BMI: 32.8 kg/m2 Admit Wt: 82 kg (BMI: 30.1 kg/m2) IBW: 56.8 kg Recent wt changes: Wt increasing over last year ESTIMATED NEEDS: BMI, COPD Calories: 2712-2331 kcal/day (22-25 kcal/kg Admit BW) Protein: 85-100 g/day (1.5-1.8 g/kg IBW) Fluids: Approx 2000 ml (~1 ml/kcal/day) NUTRITION DIAGNOSIS: 1) Inadequate oral intake related to GI abnormalities as evidenced by NPO/CL diet x 3 days and possible ischemic colitis.---PERSISTS 2) Increased nutrient needs related to chronic illness as evidenced by COPD.--PERSISTS INTERVENTION: 1) If pt is unable to tolerate diet advancement, recommend consideration of nutrition support w/ Vital 1.5 @ 15 ml/hr x24 hrs to establish tolerance. Once pt tolerating, recommend advancing 10 ml q 6 hrs to goal rate of 55 ml/hr to provide 1898 kcal/d, 85 g/d, and 1236 ml/d H2O, meeting 100% of est needs. *If no IVF, recommend flush w/ 110 ml q 3 hrs to provide 1876 ml/d H2O, meeting 100% of est fluid needs. 2) Will send Ensure TID to promote protein/calorie intake, anticipate PO intake will remain minimal d/t respiratory issues and alertness. MONITOR/EVALUATE: PO intake, GI, labs, nutrition status, POC. Will continue to monitor per high nutritional risk guidelines.
--- NOTE | 2016-04-21 16:17 | DRSVH ---
PROCEDURE: X-RAY CHEST ONE VIEW ([id number]) INDICATIONS: DYSPNEA/DDIMER; TO GO WITH NM VQ SCAN TECHNIQUE: One view of the chest was acquired. COMPARISON: [facility], CR, XR CHEST 1VW (PORTABLE), 04/19/2016, 8:49. FINDINGS: Surgical changes and devices: None. Lungs and pleura: No pneumothorax. Possible small bilateral pleural effusions. Moderate interstitial pulmonary opacity. Moderate patchy right upper and bibasilar airspace opacities. Mediastinum: Mediastinal contours appear normal. Heart size is enlarged. Bones and chest wall: No suspicious bony lesions. Overlying soft tissues appear unremarkable. IMPRESSION: 1. Findings consistent with moderate CHF. 2. Air space opacities within the right upper lung and bilateral bases, consistent with pneumonia. Co ntinued plain film surveillance is recommended to ensure resolution, and to exclude underlying or ruth ann tral malignancy. Dictated by: Vanessa Sandoval M.D. on 04/21/2016 at 16:14 Approved by: Vanessa Sandoval M.D. on 04/21/2016 at 16:15
[2016-04-21] MEDS ORDERED: Furosemide 10 mg/mL 2 mL Inj IVPUSH ONE (16:40)
--- NOTE | 2016-04-21 16:41 | PCM.PNMED ---
Subjective Date of Service Apr 21, 2016 Subjective Pt was confused overnight, pulling off Bipap and refusing to wear it. She started wearing it this morning and her mental status began to improve. She reports her abdominal pain has been improving, and denies N/V/D, fevers, chills. She had a brown loose bowel movement this morning. Exam Vital Signs Vital Sign - Last Date Time Temp Pulse Resp B/P Pulse Ox O2 Delivery O2 Flow Rate FiO2 04/21/16 16:01 36.6 93 13 151/74 97 BiPAP 10.00 50 Intake and Output 04/20/16 04/20/16 04/21/16 Cumulative From/Thru 15:00 23:00 07:00 04/17/16 21:07 - 04/21/16 05:55 Intake Total 988 ml 955 ml 518 ml 9490 ml Output Total 400 ml 1300 ml 4150 ml Balance 988 ml 555 ml -782 ml 5340 ml Intake Oral 450 ml 100 ml 2680 ml IV Total 988 ml 505 ml 60 ml 6452 ml Packed Cells 358 ml 358 ml Output Urine Total 400 ml 1000 ml 3850 ml Urine/Stool Mix 300 ml 300 ml # Voids 4 # Bowel Movements 1 2 Exam General: Alert, Oriented X1, Cooperative. No acute distress. Head: Normocephalic, atraumatic. External ears normal. Eyes: PERRLA, EOMI. Anicteric sclerae. Mouth: Mouth Normal, Mucous Membranes Moist/[place] Neck: Neck supple with full range of motion. Chest & Lungs: Clear to auscultation bilaterally with no crackles, wheezes, or rhonchi. Cardiovascular: Irregularly irregular, Normal S1, Normal S2, Loud systolic murmur heard at right upper sternal border. Abdomen: Mild RUQ tenderness to palpation with some rebound; improving. Non- distended, No masses, Hypoactive bowel tones Musculoskeletal: Normal Range of Motion Extremities: No cyanosis/clubbing/edema bilaterally Neurological: Grossly Neurologically Intact, Normal Speech Lab and Diagnostics Result Diagram: 04/21/1681904/21/16819 X-Rays, CTs and MRIs CT abd/pelvis (from Sunday): There are dense calcifications of the abdominal aorta. The patient has undergone bilateral iliac artery stenting. There are also a moderate amount of scattered arterial calcifications. There is a nonobstructing 3 mm stone within the mid-right kidney. There is a nonobstructing 1 mm stone within the upper pole of the left kidney. There is nonspecific stranding surrounding both kidneys. Within the limitations of an unenhanced exam, the rest of the solid viscera are unremarkable. There are cholecystectomy clips in the right upper quadrant. There is abnormal thickening of the cecum and descending colon with pericolonic stranding. The bowel wall measures up to 15 mm in thickness. The abnormal thickening extends up to the hepatic flexure. The transverse colon is unremarkable. The terminal ileum is unremarkable. The vermiform appendix is not visualized. There is edema tracking within the paracolic gutters bilaterally nonspecifically. The urinary bladder is unremarkable. The uterus and adnexa are unremarkable by CT. There are degenerative changes at the lumbosacral junction. There is no adenopathy. There is no free air or significant free fluid. Radiologist interpretation Cardiac Echo Impressions ECHO 04/20 Note to reading Doc-- according to the patient, this is her [place] AV-- no heart procedures have been performed according to her (see prior echo report) Left ventricular wall thickness is mildly increased. The ejection fraction is estimated to be 60-65%. The left atrium is severely dilated. The aortic valve is trileaflet. There is moderate aortic stenosis. There has been no significant change since the previous study. There is mild to moderate tricuspid regurgitation. The right ventricular systolic pressure is estimated at 51 mmHg assuming a right atrial pressure of 15 mm Hg. Assessment & Plan Patient is a 75 year old female with a history of GERD, gastric ulcers, peripheral vascular disease, afib, and aortic stenosis. She is a direct transfer to [facility] from [place]. She presented to that ED on 04/17/16 with a 24 hour history of severe, constant abdominal pain. History of upper GI bleeding with ulceration. CT done at [place] shows possible ischemic colitis. Admitted to [facility] for further evaluation and management of ischemic colitis. Possible ischemic colitis, acute. Improving. - Pt has history of afib not adequately anticoagulated, severe abdominal pain, CT findings suspicious of ischemic colitis. Right sided colitis carries a poorer prognosis than left-sided. Unfortunately, given her Stage 4 CKD (Cr 2.81) , angiography is not possible at this time. Will hold off on colonoscopy based on discussion with surgery. She appears to be improving clinically, so we will continue medical management at this time. - Continue Flagyl and ciprofloxacin. - IV fluids started - NS 100 ml/hr. - Clear liquid diet until able to take PO - likely begin advancing diet around Sunday, as tolerated. History of gastric ulcers with possible acute GI bleed. Stable. - Pt denies dark stool but has history of gastric ulcers and had guaiac positive stool. Pt received 1U PRBC overnight as Hb was 8. Hb now 9.6 and stable. - Continue IV Famotidine at this time. - Continue to monitor Hgb/Hct. - Transfuse if necessary I have seen and examined the patient and agree with above. GI Prophylaxis: H2 shabnam VTE Prophylaxis: SCDs VTE Mechanical Devices: Intermittant Pneumatic CD Resuscitation Status: CPR: Attempt Resuscitation Erasto Medina Apr 21, 2016 16:34 Kalyan Mcclellan MD Apr 21, 2016 17:11 Erasto Medina Apr 21, 2016 16:34
--- NOTE | 2016-04-21 16:57 | DRSVH ---
PROCEDURE: CT CHEST WITHOUT CONTRAST ([id number]) INDICATIONS: 75 year-old woman with acute respiratory failure. TECHNIQUE: Noncontrast 5 mm thick sections acquired from the pulmonary apices to the posterior costophrenic angl es. 7 mm thick coronal and sagittal MIP reformats were then acquired. For radiation dose reduction, the following was used: automated exposure control, adjustment of mA and/or kV according to patient size. COMPARISON: Outside Film, CT, CT ABD PELVIS WO CON, 04/17/2016, 16:25. [facility], CR, X R CHEST 1VW, 04/21/2016, 15:21. FINDINGS: Image quality: Excellent. Lungs and pleura: Bilateral patchy airspace infiltrates and bibasilar consolidations consistent with pneumonia. There are bilateral small to moderate pleural effusions.. Central and peripheral airways are patent and normal in caliber. Mediastinum: Heart size is normal. No pericardial effusion. There is a severe coronary artery calc ification and aortic calcification consistent with atherosclerosis. Mitral annular calcification is n oted. Probable right hilar lymphadenopathy. No enlarged mediastinal lymph nodes. Thoracic aorta and central pulmonary arteries are normal in size. Esophagus is normal in caliber. No hiatal hernia. Bones and chest wall: No suspicious bony lesions. No vertebral body compression fractures. No axil jenaro or supraclavicular adenopathy by size criteria. Thyroid gland is normal. Abdomen: The proximal abdominal aorta is severely narrowed at the level of diaphragmatic crura. Visu alized upper abdominal solid organs and bowel loops appear normal in the absence of contrast. IMPRESSION: 1. Bilateral patchy airspace infiltrates with bibasilar consolidations consistent with pneumonia. 2. Small to moderate bilateral pleural effusions. 3. Probable right hilar adenopathy. 4. Severe atherosclerosis. There is severe aortic stenosis at the level of diaphragmatic crura. The result was discussed with Dr. Hilliard prior to dictation. Dictated by: Sekou Ojeda M.D. on 04/21/2016 at 16:17 Approved by: Sekou Ojeda M.D. on 04/21/2016 at 16:52
--- NOTE | 2016-04-21 17:05 | ABG ---
DateTimeAnalyzed 16:59:00 -_ pH ____7.229 - 7.350 7.450 pCO2 ___50.6__ -mmHg 35.0 45.0 pO2 ___83.3__ -mmHg 69.0 116 HCO3- ___20.4__ -mmol/L 22.0 26.0 ABE ___-6.5__ -mmol/L -2.0 2.0 tHb ____9.5__ -g/dL O2Hb ___95.5__ -% COHb ____0.9__ -% MetHb ____0.0__ -% sO2 ___96.4__ -% FIO2 ___50.0__ -% CPAP ___12.0__ -cmH2O PEEP ____6.0__ -cmH2O Set_RR ___14.0__ -b/min Drawn By NB - Date/Time Notified____ 17:04:00 -_ Oxygen Device 1 ____BIPAP - Notified By nb - Notified Whom kendregan - B 772 -mmHg tO2 ___12.9__ -Vol% Chaka test N/A -
[2016-04-21 17:21] LABS: INR 1.14 ratio
[2016-04-21] MEDS: Albuterol-Ipratropium 3 mL Inhalation Solution NEB SCH ×3 (17:24→22:02)
[2016-04-21] MEDS ORDERED: Iron Sucrose Inj 200 MG in 0.9% Sodium Chloride 100 ML IV SCH (17:30)
--- NOTE | 2016-04-21 17:41 | NUR ---
Social Work: Continued Discharge Planning D/A: Pt discussed with MD and truck hopper. Pt moved to CCU due to increasing 02 demands. Pt is currently on BIPAP and may require intubation. At this time, sw needs have not been identified. Pt lives on Sunday, alone. P: MAINTENANCE REPRESENTATIVE to continue to follow and assist with dcp pending clinical course. YOLANDE Bateman
--- NOTE | 2016-04-21 18:35 | NUR ---
Bipap Pt not tolerating bipap in am, able to transfer for VQ scan, CXR, and CT with 10L oxymask. 0.5mg Ativan given IV for severe anxiety. Poor ABG's, pulmonary consult ordered by yellow team. Pt replaced on bipap r/t dsats and decreased LOC. notified. Pulmonary consulted. Family agreed for nebulizer treatments, lasix and if no improvement ok to intubated if needed. LLL wheezing heard. Non productive cough. Pt appears to be improving and much more comfortable sitting up at edge of bed. Thoracentesis ordered but on hold for coags at this time. Transferred to CCU. IV metoprolol q4 ordered. One large liquid brown stool. Correia draining freely. Small sips when fully awake. Confused and forgetful at times.
--- NOTE | 2016-04-21 18:53 | DRSVH ---
PROCEDURE: US CHEST/PLEURAL SONOGRAM INDICATIONS: respiratory failpleural bilateral pleural effusion COMPARISON: None. FINDINGS: Small bilateral pleural effusions are present. IMPRESSION: Small bilateral pleural effusions. Dictated by: Vanessa Sandoval M.D. on 04/21/2016 at 18:51 Approved by: Vanessa Sandoval M.D. on 04/21/2016 at 18:51
--- NOTE | 2016-04-21 20:01 | CONS ---
[address] [address] CONSULTATION REPORT PATIENT: BEHZAD RODRÍGUEZ : 1940 MR#: [id number] ADMIT: 04/17/2016 JOB ID: [id number] DATE OF SERVICE: 04/21/2016 PULMONARY CONSULTATION: REQUESTING PHYSICIAN: Everardo Hilliard MD REASON FOR CONSULTATION: Dyspnea. HISTORY OF PRESENT ILLNESS: A 75-year-old female with multiple comorbidities admitted five days ago for abdominal pain. She described severe constant right upper quadrant pain sharp in nature. No black stool or blood in stool. The patient has noted slow improvement in her abdominal pain and has been no longer requiring morphine. She is passing gas and had a small bowel movement. GI service felt that there was possibly ischemic colitis. She is being managed medically with IV fluids, clear diet, Flagyl, and ciprofloxacin. Over the past few days, maybe the past five days, she has noted increasing shortness of breath. Some cough. No phlegm. No pleuritic type chest pain. Although she is a heavy smoker, having smoked for the past 60 years with a few cigarettes just prior to admission, she has not had any apparent breathing problems, though her medical history is plagued with peripheral vascular disease, aortic stenosis, and GI bleeds, one noted peptic in nature and the others being undiagnosed. The patient currently indicated she is having some increasing shortness of breath. A bit anxious. Unable to give any other history. REVIEW OF SYSTEMS: Unable. Chart notes that a comprehensive review of systems on admission was negative. ALLERGIES: INCLUDE STATINS, CODEINE, ERYTHROMYCIN, MEPERIDINE, AND OMEPRAZOLE. HOME MEDICATIONS: Include aspirin, vitamin B12, dronedarone, felodipine, furosemide, gemfibrozil, metoprolol, ranitidine, and Zetia. PAST MEDICAL HISTORY: 1. Aortic stenosis, currently under evaluation. 2. Chronic kidney disease, stage 4. Daughter states she has a creatinine clearance of 17 with dialysis scheduled to begin when the creatinine clearance has been 14. 3. Degenerative joint disease. 4. Hypertension. 5. Peripheral vascular disease. Also had carotid artery stenosis. Status post right iliac artery stent, right iliofemoral endarterectomy, proximal profunda endarterectomy. No other history available due to the patient's shortness of breath and difficulty speaking and being understood through a BiPAP mask. PHYSICAL EXAMINATION: Currently vital signs show a temperature of 36.6, pulse of 93, respiratory rate in the mid 20s, blood pressure 151/74. O2 sat on BiPAP 11/29 with a flow rate of 10 L a minute shows an O2 sat of 97. General appearance: Well developed, moderately overweight female, in moderate respiratory distress. Hard to understand with her mask but is apparently speaking appropriately according to the family. Nose and throat could not be examined. Chest: Markedly distant breath sounds. There are essentially no breath sounds at the bases. There is a somewhat bronchial quality to the breath sounds in the lower lung william. Mid lung william have a few crackles on the left, less so on the right. Right upper lung william are clear, though again with markedly diminished breath sounds. Mild use of the accessory muscles. Heart: Irregular rhythm. Heart tones seem normal, though somewhat distant. Abdomen is soft. Nondistended. Bowel tones present. Extremities: 1 to 2+ pretibial edema. LABORATORY WORK: Shows a white count of 8400 this morning with 85 polymorphonuclears, no bands, six lymphocytes, eight monocytes. Hemoglobin stable at 9.6. Platelet count stable at 189,000. This morning's labs shows sodium 141, potassium 3.7, chloride 101, CO2 is 18, BUN 52 and stable, creatinine 2.83 and unchanged. Calcium 9.1 with an albumin of 3.8. Total bilirubin is normal at 0.2. Transaminases are normal. Alkaline phosphatase . Review of the CT scan done early today shows consolidation in both lower lobes with surrounding moderate-sized pleural effusion. Contrast could not be given because of her renal failure. Proximal abdominal aorta severely narrowed at the level of the diaphragmatic crura. The lung V/Q scan shows central airway deposition of aerosol. Normal distribution on perfusion, without pleural base, segmental, or subsegmental ventilation/perfusion mismatches. Hoven to show a low probability for acute pulmonary embolism. Stat blood gases on BiPAP of 11/29 with a sed rate of 14, FiO2 of 50%, shows a pO2 of 83, pCO2 of 50, pH of 7.22. The patient was sitting up. Hoven immeasurably better, more comfortable, speaking in longer phrases and short sentences. Apparently radiology has been contacted regarding thoracentesis. It apparently is going to be conducted later today. ASSESSMENT: Severe hypoxemic hypercarbic respiratory failure. The patient has a significant smoking history. However, has never been "diagnosed" with chronic obstructive pulmonary disease. Medical history has been dominated by vascular disease and her valvular heart disease. More recently, punctuated by GI bleeding. The lack of pulmonary symptoms does not dissuade me from the significant probability of obstructive airways disease. However, she has bibasilar consolidations with moderate sized effusions. Will try nebulized bronchodilators along with low-dose diuretics as I and O shows that she has been 2 L positive on a daily basis. Perhaps with the patient sitting up and getting bronchodilators, mild diuresis, and possibly thoracentesis, we can get by a few hours and get her improved so that we might avoid intubation. I had a prolonged conversation with the family. They did not know me. I did not know the patient at all and therefore discussion regarding intubation was somewhat difficult. Reviewed from the role of intubation and recovery time. Also discussed the option of limited time of intubation along with options for no intubation and the options for prolonged intubation. Reviewed the subject material as best we could. No particular decision is forthcoming, though I suspect that the family will opt for a limited time of intubation if intubation is felt to be necessary. PLAN: 1. Nebulized bronchodilators now and q.2 h. 2. Lasix IV push 20 mg now. 3. Transfer to intensive care unit. 4. Change BiPAP settings to IPAP of 16, EPAP of 8-9, FiO2 of 50%, with a rate of 14-16. 5. Apparently awaiting decision regarding thoracentesis. 6. Will need some potassium repletion. TIME: Time spent so far in critical care is 85 minutes.
--- NOTE | 2016-04-21 21:45 | NUR ---
Transfer/Bipap/Restless: Pt at 1999 was transfered from room 2021 to CCu room 2019. RT here to move Bipap and place back on once moved. Pt transport in bed on 10L/M per oxymask and was moved onto CCu bed with use of slide board. Bipap mask was reapplied pt was restless and trying to get out of bed ativan 1mg was given iv with some help pt still continues to try and get out of bed daughter and son at bedside trying calm pt down. Pt was given 2mg of morphine IV which pt finally relaxed and was calmed down and was resting comfortable.
--- NOTE | 2016-04-21 22:26 | ABG ---
DateTimeAnalyzed 22:21:00 -_ pH ____7.212 - 7.350 7.450 pCO2 ___56.6__ -mmHg 35.0 45.0 pO2 ___91.4__ -mmHg 69.0 116 HCO3- ___21.9__ -mmol/L 22.0 26.0 ABE ___-5.5__ -mmol/L -2.0 2.0 tHb ____9.0__ -g/dL O2Hb ___95.1__ -% COHb ____0.9__ -% MetHb ____1.0__ -% sO2 ___96.9__ -% FIO2 ___50.0__ -% CPAP ___14.0__ -cmH2O PEEP ____6.0__ -cmH2O Set_RR ___16.0__ -b/min Drawn By MM - Date/Time Notified____ 22:26:00 -_ Oxygen Device 1 ____BIPAP - Notified By MM - Notified Whom DAMIEN, RN - B 772 -mmHg tO2 ___12.2__ -Vol% Chaka test _Positive -
[2016-04-22] VITALS (14 sets, daily range): BP systolic 108–137; BP diastolic 23–64; PULSE 62–82; RESP 15–17; O2SAT 97–100
[2016-04-22] MEDS: MeTOProlol 1 mg/mL 5 mL Inj IVPUSH SCH ×6 (00:19→20:56)
--- NOTE | 2016-04-22 00:37 | ABG ---
DateTimeAnalyzed 00:33:00 -_ pH ____7.212 - 7.350 7.450 pCO2 ___57.9__ -mmHg 35.0 45.0 pO2 100 -mmHg 69.0 116 HCO3- ___22.4__ -mmol/L 22.0 26.0 ABE ___-5.1__ -mmol/L -2.0 2.0 tHb ____9.1__ -g/dL O2Hb ___95.3__ -% COHb ____0.9__ -% MetHb ____1.3__ -% sO2 ___97.4__ -% FIO2 ___50.0__ -% Drawn By MM - Date/Time Notified____ 00:37:00 -_ Notified By MM - Notified Whom RN DAMIEN - B 772 -mmHg tO2 ___12.3__ -Vol% Chaka test _Positive -
[2016-04-22] MEDS: Albuterol-Ipratropium 3 mL Inhalation Solution NEB SCH ×8 (00:44→20:18)
[2016-04-22 01:19] LABS: Mean Corpuscular Hemoglobin 33.6 pg (27.0-35.0); Mean Corpuscular Volume 105.9 fL (81-100)
[2016-04-22 01:52] LABS: Magnesium 1.9 mg/dL (1.6-2.6); Phosphorus 4.7 mg/dL (2.5-4.9)
--- NOTE | 2016-04-22 03:25 | ABG ---
DateTimeAnalyzed 03:20:00 -_ pH ____7.203 - 7.350 7.450 pCO2 ___58.2__ -mmHg 35.0 45.0 pO2 ___56.2__ -mmHg 69.0 116 HCO3- ___22.0__ -mmol/L 22.0 26.0 ABE ___-5.7__ -mmol/L -2.0 2.0 tHb ____9.5__ -g/dL O2Hb ___85.3__ -% COHb ____1.0__ -% MetHb ____1.2__ -% sO2 ___87.2__ -% FIO2 ___50.0__ -% CPAP ___14.0__ -cmH2O PEEP ____6.0__ -cmH2O Set_RR ___16.0__ -b/min Drawn By MM - Date/Time Notified____ 03:24:00 -_ Oxygen Device 1 ____BIPAP - Notified By MM - Notified Whom DR SULLENBERGER - B 772 -mmHg tO2 ___11.4__ -Vol% Chaka test _Positive -
[2016-04-22] MEDS ORDERED: Dextrose 5% 500 ML ONE (03:43)
[2016-04-22] MEDS ORDERED: Propofol 10,000 mCg/mL 100 mL Inj ONE (03:45)
[2016-04-22] MEDS: Propofol Inj 1,000,000 MCG in IV Premix 1 EACH IV SCH ×3 (04:25→14:39)
[2016-04-22] MEDS: Chlorhexidine 0.12% 15 mL Oral Solution MT SCH ×5 (04:50→20:41)
--- NOTE | 2016-04-22 05:18 | PROCED ---
[address] [address] PROCEDURE NOTE PATIENT: BEHZAD RODRÍGUEZ : 1940 MR#: [id number] ADMIT: 04/17/2016 JOB ID: [id number] DATE OF SERVICE: 04/22/2016 PREOPERATIVE DIAGNOSIS(ES): POSTOPERATIVE DIAGNOSIS(ES): SURGEON: Paulie Mata MD. PROCEDURE: Elective endotracheal intubation. INDICATIONS: The patient is a 75-year-old female with a history of GERD, gastric ulcers, peripheral vascular disease and moderate aortic stenosis. She has been experiencing abdominal pain and is being followed by Surgery. The patient he is having increasing respiratory difficulty, and decision was made by Dr. Venegas and the family to intubate. DESCRIPTION OF PROCEDURE: Propofol 5 mL or 50 mg were given IV, and a 7.5 oral endotracheal tube was advanced through the cords without difficulty with a good view. The patient tolerated the procedure well with no change in her blood pressure. Then, 60 mg of succinylcholine were also given to facilitate the passage of the tube through the cords. This was also well tolerated. There were no complications.
--- NOTE | 2016-04-22 06:09 | NUR ---
intubation: Repeat ABGs at 0330 showed drop in PO2 and PH. Dr correa was informed and anesthesia was here to intubate pt. pt's daughter called and informed on the phone that pt was going to be intubated. pt was sedated with 50mcg of propofol and 60mg of sucs. Pt started on propofol 20mcg/kg/min for sedation and required to be increased to 30mcg/kg/min. OG was inserted with good sounds heard over stomach area dark blood drainage return noted from OG when applied to LIS. Bilateral soft wrist restraints were applied from air and IV protection.
--- NOTE | 2016-04-22 07:31 | PCM.PNSURG ---
Subjective Visit Information: Reason for Visit Gi Bleed, Ischemic Bowel Surgery/Surgery Date Post-Op Day # Date of Admission: Apr 17, 2016 at 21:04 Hospital Day # Subjective: pt got intubated over night, OGT placed Objective Objective Intubated on the vent, sedated Abd: benign Vital Sign- Last 8 Hours Date Time Temp Pulse Resp B/P Pulse Ox O2 Delivery O2 Flow Rate FiO2 04/22/16 04:30 36.5 82 16 118/62 100 Mechanical Ventilator 60 04/22/16 04:30 Ventilator 04/22/16 04:23 83 108/52 100 60 04/22/16 00:46 85 17 123/44 99 50 04/22/16 00:30 Supplement Oxygen 04/22/16 00:30 36.6 77 15 137/51 100 BiPAP 50 Intake and Output- Last 8 Hour 04/22/16 Cumulative From/Thru 07:00 04/17/16 21:07 - 04/22/16 05:48 Intake Total 48 ml 9538 ml Output Total 1300 ml 6750 ml Balance -1252 ml 2788 ml Intake Oral 2680 ml IV Total 48 ml 6500 ml Packed Cells 358 ml Output Urine Total 1300 ml 6350 ml Stool Total 100 ml Urine/Stool Mix 300 ml Gastric Drainage Total 0 ml 0 ml # Voids 4 # Bowel Movements 3 Result Diagram: 04/22/1611004/22/161 Assessment & Plan Impression Resp failure requiring intubation R colitis, resolved A fib Peripheral vascular disease Problems: Plan Per ICU and Pulmonary Team Consider trickle feeds via OGT Check CXR this am VTE Prophylaxis: SCDs Resuscitation Status: CPR: Attempt Resuscitation Eb Orozco MD Apr 22, 2016 07:31
--- NOTE | 2016-04-22 08:03 | DRSVH ---
PROCEDURE: X-RAY CHEST ONE VIEW, PORTABLE ([id number]) INDICATIONS: TUBE PLACEMENT TECHNIQUE: One view of the chest was acquired. COMPARISON: [facility], CR, XR CHEST 1VW (PORTABLE), 04/19/2016, 8:49. FINDINGS: Surgical changes and devices: The endotracheal tube is 3.3 cm above dav. Lungs and pleura: There are bilateral air space infiltrates and bibasilar consolidations consistent with pneumonia. Small bilateral pleural effusions. No pneumothorax. Mediastinum: Mediastinal contours appear normal. Heart size is normal. Bones and chest wall: No suspicious bony lesions. Overlying soft tissues appear unremarkable. IMPRESSION: 1. The intracra tube tip is 3.3 cm above dav. Dictated by: Sekou Ojeda M.D. on 04/22/2016 at 8:00 Approved by: Sekou Ojeda M.D. on 04/22/2016 at 8:02
--- NOTE | 2016-04-22 10:59 | PCM.PNMED ---
Subjective Date of Service Apr 22, 2016 Subjective Patient intubated and sedated. Patient had bowel movement yesterday. Does not appear to be melena. OG tube placed by the chief financial officer. Exam Vital Signs Vital Sign - Last Date Time Temp Pulse Resp B/P Pulse Ox O2 Delivery O2 Flow Rate FiO2 04/22/16 08:25 Ventilator 04/22/16 08:20 78 116/63 100 60 04/22/16 08:11 37.3 16 04/21/16 16:01 10.00 Intake and Output 04/21/16 04/21/16 04/22/16 Cumulative From/Thru 15:00 23:00 07:00 04/17/16 21:07 - 04/22/16 05:48 Intake Total 0 ml 48 ml 9538 ml Output Total 1300 ml 1300 ml 6750 ml Balance -1300 ml -1252 ml 2788 ml Intake Oral 0 ml 2680 ml IV Total 48 ml 6500 ml Packed Cells 358 ml Output Urine Total 1200 ml 1300 ml 6350 ml Stool Total 100 ml 100 ml Urine/Stool Mix 300 ml Gastric Drainage Total 0 ml 0 ml # Voids 4 # Bowel Movements 1 3 Exam Patient is intubated Head and neck obese Lungs clear anteriorly Cardiovascular irregular with normal S1 and S2 and high-pitched murmur Skin showing no jaundice Abdomen soft little bit more distended than yesterday bowel sounds are present no guarding rebound firmness possible tenderness in the right side but mild. Lab and Diagnostics Result Diagram: 04/22/16 0111 04/22/16 0111 Microbiology None Assessment & Plan This is a patient who has severe peripheral vascular disease A. fib and stenosis who presented with ischemic colitis. She was treated conservatively with IV fluids and resuscitation and antibiotics. She was placed nothing by mouth since admission. Yesterday she started improving with increased bowel output include flatulence decreased pain and decrease tenderness and there is resolution of rebound. Unfortunately she had respiratory failure requiring intubation. On today's examination, patient's abdomen is slightly more distended however bowel sounds are present. She had a bowel movement yesterday. I think her ischemic colitis is resolving. Appreciate surgical services input to have signed off. For now, I think it is time to use her gut to feed the gut. 1 Would start trickle feeding. NG 5 mL an hour . OG tube placement confirmed. I will defer this to the primary service. Nutritional service involved and we will see how she tolerates this and reevaluate tomorrow. 2 History of occult GI ulcer. He was on oral famotidine. OG tube had little blood coming out most likely from trauma but nothing further is coming from the OG tube. I tried on Protonix 40 mg IV twice a day. I spoke with the patient's family about risk of enteric as well as pulmonary infection. But I think this is the best option. 3 I would recommend continuing the antibiotics Cipro and Flagyl until pain is minimal while being fed. By feeding her, we are stressing her gut and will find out whether or not she is able to tolerate by mouth feeds. GI Prophylaxis: H2 shabnam VTE Prophylaxis: SCDs VTE Mechanical Devices: Intermittant Pneumatic CD Resuscitation Status: CPR: Attempt Resuscitation Kalyan Mcclellan MD Apr 22, 2016 10:59
--- NOTE | 2016-04-22 11:09 | NUR ---
NUTRITION FOLLOW-UP Assess: 75 YO female presented with ischemic colitis. She was treated conservatively with IV fluid resuscitation and antibiotics. She has has minimal PO intake since admission x 5 D. Yesterday she started improving with increased bowel output and flatulence, decreased pain, decreased tenderness, with resolving ischemic colitis. Unfortunately she had respiratory failure, requiring intubation. On today's examination, patient's abdomen is slightly more distended; however bowel sounds are present. She had a bowel movement yesterday. Gastroenterology requested initiation of OG enteral feeding for gut stimulation. PMHx: Aortic stenosis, carotid artery stenosis, CKD Stage 4, COPD, Degenerative joint disease, HNT, HLP, Peripheral vascular disease, upper GI bleed, history of gastric ulcers, cholecystectomy. LABS: Reviewed. Na 145, BUN 51, Cr 2.85, Alb 3.4. MEDICATIONS: Reviewed. Lopressor, Ativan. DIET: Minimal intake x 5 D, mostly NPO / clear liquids. Trophic enteral feeding initiated today. NUTRITION FOCUSED PHYSICAL ASSESSMENT: GI symptoms/stool: 100 ml (04/21) Emil: 15 Skin integrity: No skin issues noted. Overall appearance: Obese woman, intubated. No signs of wasting observed. ANTHROPOMETRICS: Current Wt: 84.9 kg BMI: 29.0 kg/m2 Admit Wt: 82 kg (BMI: 30.1 kg/m2) IBW: 56.8 kg Recent wt changes: Wt increasing over last year ESTIMATED NEEDS: BMI, COPD Calories: 8892-7372 kcal/day (22-25 kcal/kg Admit BW) Protein: 85-100 g/day (1.5-1.8 g/kg IBW) Fluids: Approx 2000 ml (~1 ml/kcal/day) NUTRITION DIAGNOSIS: 1) Inadequate oral intake related to GI abnormalities as evidenced by intubation / NPO status - PERSISTS. 2) Increased nutrient needs related to chronic illness as evidenced by COPD - PERSISTS. INTERVENTION: 1) Trophic enteral feeding initiated today as follows: Vital 1.5 @ 5 ml/hr x 24 hrs to establish tolerance. Once pt tolerating, recommend advancing 5 ml every hrs to goal rate of 55 ml/hr to provide 1898 kcal/d, 85 g/d, and 1236 ml/d H2O, meeting 100% of est needs. *If no IVF, recommend flush w/ 110 ml q 3 hrs to provide 1876 ml/d H2O, meeting 100% of est fluid needs. MONITOR/EVALUATE: NPO / vent status, enteral feeding initiation / advance / tolerance, GI status, labs, nutrition status, POC. Will continue to monitor per high nutritional risk guidelines.
--- NOTE | 2016-04-22 13:11 | PROG NOTE ---
[address] [address] PROGRESS NOTE PATIENT: BEHZAD RODRÍGUEZ : 1940 MR#: [id number] ADMIT: 04/17/2016 JOB ID: [id number] DATE: 04/22/2016 PULMONARY CRITICAL CARE FOLLOW UP NOTE: PROBLEMS: 1. Dyspnea. 2. Ischemic colitis. 3. Peripheral vascular disease. 4. Smoking addiction. SUBJECTIVE: None. OBJECTIVE: Temperature 37.3. Pulse mid 70s. Respiratory rate 16 with ventilator set at 16. Blood pressure 116/23 with a mean of 54. O2 sat on FiO2 60%, PEEP of 5 is 100%. I and O shows 0.5 liters in, 2.6 liters out. General appearance: Sedated on a ventilator. Eyes: Conjunctivae are pink. Chest shows fair breath sounds bilaterally. There are some diffuse pulmonary adventitial sounds, somewhat squeaking high-pitched crackle in the anterior lung william. Heart: Regular rhythm. Abdomen is soft. Nondistended. Quiet. Extremities: Trace pretibial edema. LABORATORY STUDIES: White cell count is 6200. Differential not available though had a moderate neutrophilia. Hemoglobin 9.1, slowly decreasing. Platelet count relatively stable. Sodium 145, potassium 3.6, chloride 105, CO2 is 21, BUN 51 and stable, creatinine 2.85 and stable. Calcium 8.9 with an albumin of 3.4, phosphorus 4.7, magnesium 1.9. Transaminases are normal. Troponin T is undetectable. Hypoxemic hypercarbic respiratory failure. Certainly there is an element of acuteness to the components of the respiratory failure. However, I am sure she has underlying obstructive airways disease due to her cigarette smoking. Will continue with the bronchodilators. Unfortunately the nebulized bronchodilators were not enough for preventing intubation and now she is on the ventilator. Also had pleural effusions. They were not felt significant enough to tap. Will, therefore, continue with diuresis to see how we do. I do not think there is an element of infection. Maybe some inflammation related to her ischemic bowel but that appears to have resolved. She has been started on tube feeding and seems to be tolerating that reasonably well. PLAN: 1. Nebulizer with DuoNeb q.4. 2. Continue IV Lasix. 3. Continue ventilatory support for the moment, hopefully being able to extubate her in the next 24-48 hours. However, suspect that her ventilatory muscles have been overworked and are currently fatigued. Time spent in critical care 20 minutes. Discussed the current situation with the patient's family.
[2016-04-22] MEDS: Digoxin 0.25 mg/mL 2 mL Inj IV SCH (13:31)
[2016-04-22] MEDS: Albuterol 2.5 mg/3 mL Inhalation Solution NEB PRN (15:04)
[2016-04-22] MEDS ORDERED: cefTRIAXone Inj 1,000 MG, Lidocaine PF 1% Inj 2.1 ML in Syringe 0 EACH IM ONE (17:55)
[2016-04-22] MEDS ORDERED: MethylprednisoLONE Sodium Succinate 40 mg/mL Inj IVPUSH SCH (17:55)
--- NOTE | 2016-04-22 18:03 | PCM.PNMED ---
Subjective Date of Service Apr 22, 2016 Subjective Patient intubated but responsive Exam Vital Signs Vital Sign - Last Date Time Temp Pulse Resp B/P Pulse Ox O2 Delivery O2 Flow Rate FiO2 04/22/16 15:10 78 132/49 100 60 04/22/16 12:25 Ventilator 04/22/16 12:22 37.6 16 04/21/16 16:01 10.00 Intake and Output 04/21/16 04/21/16 04/22/16 Cumulative From/Thru 15:00 23:00 07:00 04/17/16 21:07 - 04/22/16 05:48 Intake Total 0 ml 48 ml 9538 ml Output Total 1300 ml 1300 ml 6750 ml Balance -1300 ml -1252 ml 2788 ml Intake Oral 0 ml 2680 ml IV Total 48 ml 6500 ml Packed Cells 358 ml Output Urine Total 1200 ml 1300 ml 6350 ml Stool Total 100 ml 100 ml Urine/Stool Mix 300 ml Gastric Drainage Total 0 ml 0 ml # Voids 4 # Bowel Movements 1 3 Exam Gen.-Poorly arousable, sedated, intubated no apparent distress Eyes-closed, normal eyelids no discharge Mouth-endotracheal tube protruding ENT- ears normal, nose normal Neck- supple/trach midline CVS- RRR 2/6 -gallop/heave, no pedal edema Lungs CTA (ventilator sounds GI- NABS/NT soft Musc- moving 4 no obvious deformity Neuro- cranial nerves II through XII intact to gross examination, nonfocal Skin- warm and dry, no rashes/lesions/wounds noted Psych- sedated Lab and Diagnostics DateTimeAnalyzed 03:20:00 -_ pH ____7.203 - 7.350 7.450 pCO2 ___58.2__ -mmHg 35.0 45.0 pO2 ___56.2__ -mmHg 69.0 116 HCO3- ___22.0__ -mmol/L 22.0 26.0 ABE ___-5.7__ -mmol/L -2.0 2.0 tHb ____9.5__ -g/dL O2Hb ___85.3__ -% COHb ____1.0__ -% MetHb ____1.2__ -% sO2 ___87.2__ -% FIO2 ___50.0__ -% CPAP ___14.0__ -cmH2O PEEP ____6.0__ -cmH2O Result Diagram: 04/22/16 0111 04/22/16 0111 Microbiology None Assessment & Plan Patient is a 75 year old female with a history of GERD, gastric ulcers, peripheral vascular disease, afib, and aortic stenosis. She is a direct transfer to [facility] from Sunday. She presented to that ED on 04/17/16 with a 24 hour history of severe, constant abdominal pain. 04/22 the patient's respiratory failure worsened and she was intubated. Because of the CT scan findings and her long history of smoking I am going to treat this if not his pneumonia but COPD exacerbation with Rocephin and Zithromax and Solu-Medrol in addition to bronchodilators. Hopefully this will be a short course and we will wean her from the antibiotics by 5 days which would be /. I am repeating blood gases as her ABG is a little bit alarming, her labs do not suggest metabolic acidosis and she looks like she is respiratory acidosis perhaps this was only when she was just intubated. I would like to confirm that acidosis has been corrected or at least suggest the vent settings accordingly. Hypernatremia- 03/27 NS 100 mL overnight will decrease tomorrow to a maintenance rate of 50-75 patient intubated 04/22 Acute respiratory failure-patient having CO2 retention and hypoxemia BiPAP , furosemide 40mgIV/1U PRBCs 04/20 in pm, VQ low probability, CT shows consolidations/effusion consistent with pneumonia. Intubated 04/22 about 2 AM... We will give her a few days rest and do weaning trial perhaps 04/23 or . Bilateral pneumonia/effusion/COPD- not really enough to account for therapeutic purpose, and there is risk for diagnostic so we will go ahead and treat for pneumonia. I am going to go ahead and treat with Rocephin/Zithromax and Solu-Medrol in addition to bronchodilators treating this as though it were if not a pneumonia and a COPD exacerbation in the hopes that this weans her more quickly. Acute/chronic resp acidosis w/ metabolic acidosis/chronic metabolic alkalosis -following blood gases checking lactic acid level. Acute diastolic CHF-echo normal 04/20, BNP elevated hard to assess in the setting of CKD4, will give 1 dose furosemide 04/21, renal function only moderately worse deferred to pulmonary whether to give more diuresis. IV fluids discontinued 04/20. Volume status is not entirely clear. Afib, chronic- RVR [id number] her aortic stenosis patient made to be developing CHF she is in clear distress. I personally evaluated EKG, stat echo was ordered as we have no prior medical Cont telemetry.Only on full dose aspirin for anticoagulation. CHADS-VASC score 5. reportedly scheduled for eval for LA appendage occlusion device. Digoxin loading/metoprolol or rate control. For whatever reason is not clear the patient not being on Coumadin or other full novel anticoagulant we will not be starting it here 04/22 Possible ischemic colitis, acute. R sided colitis . Unfortunately, given her Stage 4 CKD (Cr 2.81), angiography is not plausible at this time. No colonoscopy for now 04/20 surgery signing off 04/21. Also recommend obtaining records of colonoscopy and PillCam from [facility]. Stool PCR 04/17 still pending. CKD4- Cr 2.8 aprox stable subce 03/10 monitor and avoid nephro toxic drugs HTN-patient is lowish blood pressures going to discontinue the felodipine in order to optimize rate control with rate controlling BP meds Hx gastric ulcers ?acute GIB? Hasn't taken H2 blockers in two weeks. Hb stable at about 8.0. cont IV H2 blockers stopped 04/21, monitor Hgb/Hct, transfuse prn, will transition to PPI daily IV 04/21 Iron deficiency anemia-iron studies low 04/19 new from 03/10, hg aprox stable 9.0 03/10, transfuse 1 unit PRBC 04/20 to optimize patient, will give IV iron 200 makes alternating days for total of 1 g starting 04/21-05/01 Prophylaxis-DVT, SCDs only anticoagulation contraindicated, GI patient on IV famotidine at this point in time Disposition-full code from home GI Prophylaxis: H2 shabnam VTE Prophylaxis: SCDs VTE Mechanical Devices: Intermittant Pneumatic CD Resuscitation Status: CPR: Attempt Resuscitation Everardo Hilliard MD Apr 22, 2016 18:03
[2016-04-22] MEDS: MethylprednisoLONE Sodium Succinate 62.5 mg/mL 2 mL Inj IVPUSH SCH (18:25)
--- NOTE | 2016-04-22 18:39 | ABG ---
DateTimeAnalyzed 18:35:00 -_ pH ____7.504 - 7.350 7.450 pCO2 ___26.3__ -mmHg 35.0 45.0 pO2 112 -mmHg 69.0 116 HCO3- ___20.5__ -mmol/L 22.0 26.0 ABE ___-1.5__ -mmol/L -2.0 2.0 tHb ____9.0__ -g/dL O2Hb ___96.3__ -% COHb ____1.3__ -% MetHb ____1.1__ -% sO2 ___98.7__ -% FIO2 ___40.0__ -% PEEP ____5.0__ -cmH2O Set_RR ___16.0__ -b/min Vt __480.0__ -L Drawn By NB - Date/Time Notified____ 18:39:00 -_ Oxygen Device 1 VENTILATOR - Notified By nb - Notified Whom __Radvany - B 769 -mmHg tO2 ___12.4__ -Vol% Chaka test N/A -
--- NOTE | 2016-04-22 19:30 | NUR ---
Tube Feed/Vent: Tube feed started: Vital 1.5 5mL/hr w/ 40 flush Q4hrs. Current vent settings 35%/5PEEP/12RR/420TV (adjusted by RT). Minimal thin/clear fluid when suctioned.
[2016-04-22] MEDS: cefTRIAXone 2,000 mg/D5W 50 mL IV Minibag Plus IV SCH ×2 (20:20)
[2016-04-22] MEDS ORDERED: 0.9% Sodium Chloride 250 ML ONE (20:25)
[2016-04-23] VITALS (12 sets, daily range): BP systolic 121–134; BP diastolic 42–76; PULSE 64–83; RESP 12–22; O2SAT 95–99
[2016-04-23] MEDS: Albuterol-Ipratropium 3 mL Inhalation Solution NEB SCH ×6 (00:38→21:04)
[2016-04-23] MEDS: MethylprednisoLONE Sodium Succinate 62.5 mg/mL 2 mL Inj IVPUSH SCH ×2 (00:49→07:41)
[2016-04-23] MEDS: Chlorhexidine 0.12% 15 mL Oral Solution MT SCH ×6 (00:49→20:30)
[2016-04-23] MEDS: MeTOProlol 1 mg/mL 5 mL Inj IVPUSH SCH ×6 (00:49→21:07)
[2016-04-23] MEDS: Propofol Inj 1,000,000 MCG in IV Premix 1 EACH IV SCH (00:54)
[2016-04-23 03:21] LABS: BASOPHILS % (AUTO) 0.3 % (0-3); EOSINOPHILS % (AUTO) 0 % (0-5); MONOCYTES % (AUTO) 1.5 % (4-12); Mean Corpuscular Hemoglobin 34.1 pg (27.0-35.0); Mean Corpuscular Volume 104.5 fL (81-100); NEUTROPHILS % (AUTO) 92.4 % (40-74); Platelet Count 181 bil/L (150-400)
--- NOTE | 2016-04-23 05:36 | ABG ---
DateTimeAnalyzed 05:31:00 -_ pH ____7.350 - 7.350 7.450 pCO2 ___36.5__ -mmHg 35.0 45.0 pO2 ___68.7__ -mmHg 69.0 116 HCO3- ___19.6__ -mmol/L 22.0 26.0 ABE ___-4.9__ -mmol/L -2.0 2.0 tHb ____9.4__ -g/dL O2Hb ___91.8__ -% COHb ____1.3__ -% MetHb ____1.0__ -% sO2 ___94.0__ -% FIO2 ___35.0__ -% PRVC 12 - PEEP ____5.0__ -cmH2O Set_RR ___12.0__ -b/min Vt __420.0__ -L Drawn By MM - Date/Time Notified____ 05:36:00 -_ Spontaneous_RR ___12.0__ -b/min Oxygen Device 1 VENTILATOR - Notified By MM - Notified Whom DAMIEN, RN - B 766 -mmHg tO2 ___12.2__ -Vol% Chaka test N/A -
--- NOTE | 2016-04-23 06:39 | NUR ---
Sedation vacation: 2014 sedation was turned off and pt was completely alert able to follow commands and nod to question. Pt tolerated being off sedation very well. After 1hr sedation was returned to help pt rest during the night at 0600 sedation was stopped again at 0620 pt nodded that she was having some discomfort with the ETT propofol was started back on at 10mcg/kg/min.
--- NOTE | 2016-04-23 07:44 | DRSVH ---
PROCEDURE: X-RAY CHEST ONE VIEW, PORTABLE ([id number]) INDICATIONS: respiratory failure TECHNIQUE: One view of the chest was acquired. COMPARISON: [facility], CR, XR CHEST 1VW (PORTABLE), 04/22/2016, 3:53. FINDINGS: Surgical changes and devices: None. Tubes and catheters are in stable and expected positions. Lungs and pleura: No pneumothorax. Small bilateral pleural effusions. Increased, severe bilateral mi d and lower lung airspace opacity. Moderate interstitial pulmonary opacity is present, as before. Mediastinum: Mediastinal contours appear normal. Heart size is enlarged. Bones and chest wall: No suspicious bony lesions. Overlying soft tissues appear unremarkable. IMPRESSION: 1. Increased bilateral lower lung pneumonia. 2. Moderate CHF. Dictated by: Vanessa Sandoval M.D. on 04/23/2016 at 7:41 Approved by: Vanessa Sandoval M.D. on 04/23/2016 at 7:42
--- NOTE | 2016-04-23 08:22 | PCM.PNMED ---
Subjective Date of Service Apr 23, 2016 Subjective Patient intubated when I saw her but awake and responsive and following simple commands Exam Vital Signs Vital Sign - Last Date Time Temp Pulse Resp B/P Pulse Ox O2 Delivery O2 Flow Rate FiO2 04/23/16 07:54 36.8 69 12 125/56 99 Mechanical Ventilator 04/23/16 05:19 35 04/21/16 16:01 10.00 Intake and Output 04/22/16 04/22/16 04/23/16 Cumulative From/Thru 15:00 23:00 07:00 04/17/16 21:07 - 04/23/16 06:35 Intake Total 436 ml 1622 ml 49578 ml Output Total 1100 ml 500 ml 8350 ml Balance -664 ml 1122 ml 3246 ml Intake Oral 0 ml 2680 ml IV Total 320 ml 1426 ml 8246 ml Tube Feeding 36 ml 56 ml 92 ml Packed Cells 358 ml Tube Irrigant 80 ml 140 ml 220 ml Output Urine Total 1100 ml 500 ml 7950 ml Stool Total 100 ml Urine/Stool Mix 300 ml Gastric Drainage Total 0 ml # Voids 4 # Bowel Movements 0 3 Exam Gen.-Patient awake, following simple commands, no apparent distress Eyes-closed, normal eyelids no discharge Mouth-endotracheal tube protruding ENT- ears normal, nose normal Neck- supple/trach midline CVS- RRR 2/6 -gallop/heave, no pedal edema Lungs CTA (ventilator sounds) GI- NABS/NT soft Musc- moving 4 no obvious deformity Neuro- cranial nerves II through XII intact to gross examination, nonfocal Skin- warm and dry, no rashes/lesions/wounds noted Psych-awake, appropriate as far as I can tell Lab and Diagnostics DateTimeAnalyzed 10:55:00 -_ pH ____7.343 - 7.350 7.450 pCO2 ___37.0__ -mmHg 35.0 45.0 pO2 ___87.8__ -mmHg 69.0 116 HCO3- ___19.5__ -mmol/L 22.0 26.0 ABE ___-5.1__ -mmol/L -2.0 2.0 tHb ____9.5__ -g/dL O2Hb ___94.6__ -% COHb ____1.1__ -% MetHb ____1.1__ -% sO2 ___96.7__ -% FIO2 ___50.0__ -% Pressure_Support ____5.0__ -cmH2O PEEP ____5.0__ -cmH2O Drawn By NB - Date/Time Notified____ 10:59:00 -_ Spontaneous_RR ___14.0__ -b/min Oxygen Device 1 VENTILATOR - Notified By NB - Notified Whom Kendregan - DateTimeAnalyzed 05:31:00 -_ pH ____7.350 - 7.350 7.450 pCO2 ___36.5__ -mmHg 35.0 45.0 pO2 ___68.7__ -mmHg 69.0 116 HCO3- ___19.6__ -mmol/L 22.0 26.0 ABE ___-4.9__ -mmol/L -2.0 2.0 tHb ____9.4__ -g/dL O2Hb ___91.8__ -% COHb ____1.3__ -% MetHb ____1.0__ -% sO2 ___94.0__ -% FIO2 ___35.0__ -% PRVC 12 - PEEP ____5.0__ -cmH2O Set_RR ___12.0__ -b/min Vt __420.0__ -L Drawn By MM - Date/Time Notified____ 05:36:00 -_ Spontaneous_RR ___12.0__ -b/min Result Diagram: 04/23/16 0254 04/23/16 0254 Microbiology None X-Rays, CTs and MRIs PROCEDURE: X-RAY CHEST ONE VIEW, PORTABLE ([id number]) 1. Increased bilateral lower lung pneumonia. 2. Moderate CHF. Dictated by: Vanessa Sandoval M.D. on 04/23/2016 at 7:41 12-lead ECG EKG from 04/14 for personal/concurrently reviewed by Arminda 04/23 . Atrial fibrillation rate 127, QTC 477 ms . Nonspecific intraventricular conduction delay * Low voltage, precordial leads * Consider anterior infarct * Nonspecific repol abnormality, lateral leads . No previous ECG available for comparison Cardiac Echo Impressions Echocardiogram Report Interpretation Summary Note to reading Doc-- according to the patient, this is her [place] AV-- no heart procedures have been performed according to her (see prior echo report) Left ventricular wall thickness is mildly increased. The ejection fraction is estimated to be 60-65%. The left atrium is severely dilated. The aortic valve is trileaflet. There is moderate aortic stenosis. There has been no significant change since the previous study. There is mild to moderate tricuspid regurgitation. The right ventricular systolic pressure is estimated at 51 mmHg assuming a right atrial pressure of 15 mm Hg. Electronically signed by: Dennis Mak :04/20/2016 03:41 PM Assessment & Plan Patient is a 75 year old female with a history of GERD, gastric ulcers, peripheral vascular disease, afib, and aortic stenosis. She is a direct transfer to [facility] from [place]. She presented to that ED on 04/17/16 with a 24 hour history of severe, constant abdominal pain. 04/22 the patient's respiratory failure worsened and she was intubated. Because of the CT scan findings and her long history of smoking I am going to treat this if not his pneumonia but COPD exacerbation with Rocephin and Zithromax and Solu-Medrol in addition to bronchodilators. Hopefully this will be a short course and we will wean her from the antibiotics by 5 days which would be 04/29. 04/23 patient clinically greatly improved, extubated Hypernatremia- 03/27 NS 100 mL 04/21, Na 145 04/22, 144 04/23 Acute respiratory failure-patient having CO2 retention and hypoxemia BiPAP , furosemide 40mgIV/1U PRBCs 04/20 in pm, VQ low probability, CT shows consolidations/effusion consistent with pneumonia. Intubated 04/22 about 2 AM... We will give her a few days rest and do weaning trial perhaps 04/23 or . Bilateral pneumonia/effusion/COPD- not really enough to account for therapeutic purpose, and there is risk for diagnostic so we will go ahead and treat for pneumonia. I am going to go ahead and treat with Rocephin/Zithromax and Solu-Medrol in addition to bronchodilators treating this as though it were if not a pneumonia and a COPD exacerbation in the hopes that this weans her more quickly. Acute/chronic resp acidosis w/ metabolic acidosis/chronic metabolic alkalosis -following blood gases checking lactic acid level. Acute diastolic CHF-echo normal 04/20, BNP elevated hard to assess in the setting of CKD4, will give 1 dose furosemide 04/21, renal function only moderately worse deferred to pulmonary whether to give more diuresis. IV fluids discontinued 04/20. Volume status is not entirely clear. Afib, chronic- RVR [id number] her aortic stenosis does Only on full dose aspirin for anticoagulation. CHADS-VASC score 5. reportedly scheduled for eval for LA appendage occlusion device. Digoxin loading/metoprolol or rate control. For whatever reason is not clear the patient not being on Coumadin or other full novel anticoagulant we will not be starting it here 04/22 Possible ischemic colitis, acute. R sided colitis . Unfortunately, given her Stage 4 CKD (Cr 2.81), angiography is not plausible at this time. No colonoscopy for now 04/20 surgery signing off 04/21. Also recommend obtaining records of colonoscopy and [facility] from [facility]. Stool PCR 04/17 still pending. CKD4- Cr 2.8 aprox stable subce 03/10 monitor and avoid nephro toxic drugs, Bun/Cr 52/2.65 04/23 HTN-patient is lowish blood pressures going to discontinue the felodipine in order to optimize rate control with rate controlling BP meds, SBP 120-130 04/23, rate 60-70s Hx gastric ulcers ?acute GIB? Hasn't taken H2 blockers in two weeks. Hb stable at about 8.0. cont IV H2 blockers stopped 04/21, monitor Hgb/Hct, transfuse prn, on famotidine due to omeprazole allergy 04/23 Iron deficiency anemia-iron studies low 04/19 new from 03/10, hg aprox stable 9.0 03/10, transfuse 1 unit PRBC 04/20 to optimize patient, will give IV iron 200 makes alternating days for total of 1 g starting 04/21-05/01, Hg 8.0 04/20, 9.6 04/21, 9.1 04/22, 9.1 04/23 Prophylaxis-DVT, SCDs only anticoagulation contraindicated, GI patient on IV famotidine at this point in time Disposition-full code from home GI Prophylaxis: H2 shabnam VTE Prophylaxis: SCDs VTE Mechanical Devices: Intermittant Pneumatic CD Resuscitation Status: CPR: Attempt Resuscitation Everardo Hilliard MD Apr 23, 2016 08:22
[2016-04-23] MEDS ORDERED: Azithromycin Inj 500 MG in Dextrose 5% w/Vial Mate 250 ML IV SCH (08:30)
[2016-04-23] MEDS ORDERED: Magnesium Sulf 2 Gm/50mL Water 2 GM in IV Premix 1 EACH IV ONE (09:00)
[2016-04-23] MEDS ORDERED: KCl 20 mEq/100 mL(CENTRAL) 20 MEQ in IV Premix 1 EACH IV ONE (09:00)
[2016-04-23] MEDS: cefTRIAXone 2,000 mg/D5W 50 mL IV Minibag Plus IV SCH ×2 (10:46)
--- NOTE | 2016-04-23 11:00 | ABG ---
DateTimeAnalyzed 10:55:00 -_ pH ____7.343 - 7.350 7.450 pCO2 ___37.0__ -mmHg 35.0 45.0 pO2 ___87.8__ -mmHg 69.0 116 HCO3- ___19.5__ -mmol/L 22.0 26.0 ABE ___-5.1__ -mmol/L -2.0 2.0 tHb ____9.5__ -g/dL O2Hb ___94.6__ -% COHb ____1.1__ -% MetHb ____1.1__ -% sO2 ___96.7__ -% FIO2 ___50.0__ -% Pressure_Support ____5.0__ -cmH2O PEEP ____5.0__ -cmH2O Drawn By NB - Date/Time Notified____ 10:59:00 -_ Spontaneous_RR ___14.0__ -b/min Oxygen Device 1 VENTILATOR - Notified By NB - Notified Whom Kendregan - B 766 -mmHg tO2 ___12.7__ -Vol% Chaka test N/A -
[2016-04-23] MEDS ORDERED: Potassium Chloride Inj 20 MEQ in Dextrose 5% 250 ML IV ONE (12:15)
[2016-04-23] MEDS: Digoxin 0.25 mg/mL 2 mL Inj IV SCH (13:19)
--- NOTE | 2016-04-23 14:25 | PCM.PNMED ---
Subjective Date of Service Apr 23, 2016 Subjective Patient was extubated. Patient is alert and oriented and does appear comfortable. Denies abdominal pain. Tolerate NG feeding to feeding 5 mL an hour yesterday. Exam Vital Signs Vital Sign - Last Date Time Temp Pulse Resp B/P Pulse Ox O2 Delivery O2 Flow Rate FiO2 04/23/16 13:30 72 14 97 6.00 04/23/16 12:28 36.6 124/52 Nasal Cannula 04/23/16 08:37 40 Intake and Output 04/22/16 04/22/16 04/23/16 Cumulative From/Thru 15:00 23:00 07:00 04/17/16 21:07 - 04/23/16 06:35 Intake Total 436 ml 1622 ml 03050 ml Output Total 1100 ml 500 ml 8350 ml Balance -664 ml 1122 ml 3246 ml Intake Oral 0 ml 2680 ml IV Total 320 ml 1426 ml 8246 ml Tube Feeding 36 ml 56 ml 92 ml Packed Cells 358 ml Tube Irrigant 80 ml 140 ml 220 ml Output Urine Total 1100 ml 500 ml 7950 ml Stool Total 100 ml Urine/Stool Mix 300 ml Gastric Drainage Total 0 ml # Voids 4 # Bowel Movements 0 3 Exam Physical examination: Patient is alert and oriented and comfortable appropriate. Head and neck no icterus Lungs clear anteriorly Cardiovascular regular with normal S1-S2 with high-pitched murmur consistent with aortic stenosis Abdomen soft little bit more distended than yesterday nontender and active bowel sounds. No rebound. Skin shows no jaundice. Lab and Diagnostics Result Diagram: 04/23/16 0254 04/23/16 0254 Microbiology None X-Rays, CTs and MRIs PROCEDURE: X-RAY CHEST ONE VIEW, PORTABLE ([id number]) 1. Increased bilateral lower lung pneumonia. 2. Moderate CHF. Dictated by: Vanessa Sandoval M.D. on 04/23/2016 at 7:41 12-lead ECG EKG from 04/14 for personal/concurrently reviewed by Arminda 04/23 . Atrial fibrillation rate 127, QTC 477 ms . Nonspecific intraventricular conduction delay * Low voltage, precordial leads * Consider anterior infarct * Nonspecific repol abnormality, lateral leads . No previous ECG available for comparison Cardiac Echo Impressions Echocardiogram Report Interpretation Summary Note to reading Doc-- according to the patient, this is her [place] AV-- no heart procedures have been performed according to her (see prior echo report) Left ventricular wall thickness is mildly increased. The ejection fraction is estimated to be 60-65%. The left atrium is severely dilated. The aortic valve is trileaflet. There is moderate aortic stenosis. There has been no significant change since the previous study. There is mild to moderate tricuspid regurgitation. The right ventricular systolic pressure is estimated at 51 mmHg assuming a right atrial pressure of 15 mm Hg. Electronically signed by: Dennis Mak :04/20/2016 03:41 PM Assessment & Plan This is a patient who has severe peripheral vascular disease A. fib and stenosis who presented with ischemic colitis. She was treated conservatively with IV fluids and resuscitation and antibiotics. She was placed nothing by mouth since admission. Yesterday she started on NG tube feeding 5 mL an hour. She is not having abdominal pain. She does not have any tenderness and no rebound. Ischemic colitis seems to be improving and resolving. Appreciate surgical services input to have signed off. For now, I think it is time to use her gut to feed the gut. 1 successful trickle feeding. Full liquid diet. If abdominal pain hold. 2 no melena and no blood in the stools. In the low but stable from 9.1-9.1. Continue IV Protonix bolus. 3 I would recommend continuing the antibiotics Cipro and Flagyl if abdominal pain returns or febrile or starts having elevated white count. It appears that she is not having abdominal pain. White count is normalized. We will see how her abdominal pain is after full liquid diet. If he tolerates full liquid diet , I would keep her on full liquid diet for about 3-4 days and advance to low- fat low protein diet for next couple weeks. GI Prophylaxis: H2 shabnam VTE Prophylaxis: SCDs VTE Mechanical Devices: Intermittant Pneumatic CD Resuscitation Status: CPR: Attempt Resuscitation Kalyan Mcclellan MD Apr 23, 2016 14:25
--- NOTE | 2016-04-23 14:49 | NUR ---
Social Work: Continued Discharge Planning D: Per EMR review, pt is on day 6 of stay. Pt was extubated today and following simple commands. Pt continues to be on NG tube for nutrition support. GI continues to follow pt. Pt currently on IV ABX and expected to be weaned from these by 2/, per MD prog note. A: Pt who previously lived in [place], alone. P: [employer] to follow up with pt's clinical and ambulatory progress as allowed by MD team and follow up with discharge planning with pt and family. YOLANDE Bateman
--- NOTE | 2016-04-23 15:30 | NUR ---
Extubation: P: pt tolerated pressure support trial for two hours I: Blood gases were drawn. Results reviewed by RT and Dr Poon. E: Patient was extubated at 1135. She is A&O X3, cooperative with care MARCELLA (restraints DC'd @ 1135). SpO2: mid to high 90's on 6L NC. NPO at this time until swallow evaluation is completed by
--- NOTE | 2016-04-23 15:55 | PROG NOTE ---
[address] [address] PROGRESS NOTE PATIENT: BEHZAD RODRÍGUEZ : 1940 MR#: [id number] ADMIT: 04/17/2016 JOB ID: [id number] DATE: 04/23/2016 PULMONARY CRITICAL CARE FOLLOWUP NOTE: 1. Dyspnea. 2. Bilateral pulmonary infiltrates with surrounding pleural effusions. 3. Ischemic colitis. 4. Peripheral vascular disease. 5. Smoking addiction. SUBJECTIVE: Breathing comfortably. Very anxious to have the tube out. No chest or abdominal pain. OBJECTIVE: Temperature 36.8. Pulse mid 60s. Respiratory rate 12 on a ventilator, set at 12. Blood pressure 130/57. O2 sat on FiO2 of 50%, PEEP of 5 is 98%. I and O shows 0.4 L in, 2.4 L out. The patient is negative 4 L over the past 48 hours. Awake, alert, responding appropriately. Chest shows somewhat diminished breath sounds especially at the bases but lung william are clear. Heart: Somewhat irregular rhythm. Heart tones seem normal. Holosystolic murmur along the entire precordium. Abdomen soft. Bowel tones present. Extremities: No pretibial edema. LABORATORY DATA: Shows a white count of 4000 with 92 polymorphonuclears, no bands, 5 lymphocytes, one monocyte. Hemoglobin 9.1 and stable. Platelet count 181,000 and stable. Sodium 144, potassium 3.5, chloride 104, CO2 is 19. BUN 52, creatinine 2.6. Glucose 142. Calcium 8.4. Chest x-ray shows persistent opacification, right lower lung field and left base. Seems about the same as film from April 21, 2016, which showed some atelectasis with small to moderate-size pleural effusions, the latter being too small to tap. ASSESSMENT: 1. Respiratory failure. Doing reasonably well. Currently on pressure support trial. Will obtain arterial blood gases to see about extubation. Seems to be taking reasonable size breaths. 2. Atelectasis and pleural effusions. Still unclear as to the etiology. On broad-spectrum antibiotics, though I am not convinced she has an infection. Unfortunately, I do not see a procalcitonin which might help us a little bit in that decision, though part of it may have related to her ischemic colitis for which she was on broad-spectrum antibiotics. 3. Smoking addiction. Suspect she has significant underlying obstructive airways disease. That remains to be determined. Not having any particular problem with airways obstruction with the current ventilator settings, but I think it would be mendoza to continue bronchodilators after extubation. PLAN: 1. Blood gases regarding possibility of extubation. 2. Continue IV antibiotics. 3. Add procalcitonin to this morning's blood work. 4. Potassium repletion. Discussed the situation with the family. Time spent in critical care 30 minutes.
[2016-04-23] MEDS: LORazepam 0.5 mg Tablet PO PRN (20:57)
[2016-04-24] VITALS (13 sets, daily range): BP systolic 119–167; BP diastolic 46–68; PULSE 60–83; RESP 11–20; O2SAT 95–100
[2016-04-24] MEDS: Chlorhexidine 0.12% 15 mL Oral Solution MT SCH (00:30)
[2016-04-24] MEDS: MeTOProlol 1 mg/mL 5 mL Inj IVPUSH SCH ×4 (00:37→12:52)
[2016-04-24 03:22] LABS: BASOPHILS % (AUTO) 0 % (0-3); EOSINOPHILS % (AUTO) 0 % (0-5); MONOCYTES % (AUTO) 6.9 % (4-12); Mean Corpuscular Hemoglobin 34.2 pg (27.0-35.0); Mean Corpuscular Volume 103.4 fL (81-100); Platelet Count 198 bil/L (150-400)
[2016-04-24] MEDS: 0.45% Sodium Chloride 500 ML IV SCH ×2 (03:26→08:38)
[2016-04-24 04:56] LABS: Magnesium 2.3 mg/dL (1.6-2.6); Phosphorus 3.8 mg/dL (2.5-4.9)
--- NOTE | 2016-04-24 05:54 | NUR ---
resp/Activity: Pt alert and orientated slept well during the night was able to turn self in bed. Pt remained on 5-6L/M through the night tolerates well.
[2016-04-24] MEDS: Albuterol-Ipratropium 3 mL Inhalation Solution NEB SCH ×4 (06:18→20:43)
--- NOTE | 2016-04-24 07:32 | PCM.PNMED ---
Subjective Date of Service Apr 24, 2016 Subjective Patient asking about eating. No chest pain, no dyspnea and no nausea, no nausea /vomiting Exam Vital Signs Vital Sign - Last Date Time Temp Pulse Resp B/P Pulse Ox O2 Delivery O2 Flow Rate FiO2 04/24/16 06:19 67 14 100 Nasal Cannula 6.00 04/24/16 04:30 36.8 123/46 04/23/16 08:37 40 Intake and Output 04/23/16 04/23/16 04/24/16 Cumulative From/Thru 15:00 23:00 07:00 04/17/16 21:07 - 04/23/16 17:31 Intake Total 1592 ml 25147 ml Output Total 650 ml 9000 ml Balance 942 ml 4188 ml Intake Oral 0 ml 2680 ml IV Total 1482 ml 9728 ml Tube Feeding 30 ml 122 ml Packed Cells 358 ml Tube Irrigant 80 ml 300 ml Output Urine Total 650 ml 8600 ml Stool Total 100 ml Urine/Stool Mix 300 ml Gastric Drainage Total 0 ml # Voids 4 # Bowel Movements 1 4 Exam Gen.-Was sleeping well and was speaking to her son but then she woke up and was pleasant and appropriate oriented 3 Eyes-open, conjunctivae clear, pupils equal ENT- ears normal, nose normal Neck- supple/trach midline CVS- RRR 2/6 -gallop/heave, no pedal edema Lungs CTA moving air well no wheezes or rhonchi no evidence of respiratory distress GI- NABS/NT soft Musc- moving 4 no obvious deformity Neuro- cranial nerves II through XII intact to gross examination, nonfocal Skin- warm and dry, no rashes/lesions/wounds noted Psych-pleasant and appropriate already asking about discharge Lab and Diagnostics Result Diagram: 04/24/16 0250 04/24/16 0250 Microbiology None X-Rays, CTs and MRIs X-RAY CHEST ONE VIEW, PORTABLE -personally/concurrently reviewed by Arminda 1. Decrease in pulmonary edema. 2. Small pleural effusions and basilar airspace opacities redemonstrated consistent with compressive atelectasis, pneumonia or residual patchy pulmonary edema. Dictated by: Aaron Thorpe RRA Interpreted: Sekou Ojeda MD on 04/24/2016 at 8:10 X-RAY CHEST ONE VIEW, PORTABLE 1. Increased bilateral lower lung pneumonia. 2. Moderate CHF. Dictated by: Vanessa Sandoval M.D. on 04/23/2016 at 7:41 12-lead ECG EKG from 04/14 for personal/concurrently reviewed by Arminda 04/23 . Atrial fibrillation rate 127, QTC 477 ms . Nonspecific intraventricular conduction delay * Low voltage, precordial leads * Consider anterior infarct * Nonspecific repol abnormality, lateral leads . No previous ECG available for comparison Cardiac Echo Impressions Echocardiogram Report Interpretation Summary Note to reading Doc-- according to the patient, this is her mary's igloo AV-- no heart procedures have been performed according to her (see prior echo report) Left ventricular wall thickness is mildly increased. The ejection fraction is estimated to be 60-65%. The left atrium is severely dilated. The aortic valve is trileaflet. There is moderate aortic stenosis. There has been no significant change since the previous study. There is mild to moderate tricuspid regurgitation. The right ventricular systolic pressure is estimated at 51 mmHg assuming a right atrial pressure of 15 mm Hg. Electronically signed by: Dennis Trejo [facility] :04/20/2016 03:41 PM Assessment & Plan Patient is a 75 year old female with a history of GERD, gastric ulcers, peripheral vascular disease, afib, and aortic stenosis. She is a direct transfer to [facility] from [place]. She presented to that ED on 04/17/16 with a 24 hour history of severe, constant abdominal pain. 04/22 the patient's respiratory failure worsened and she was intubated. Because of the CT scan findings and her long history of smoking I am going to treat this if not his pneumonia but COPD exacerbation with Rocephin and Zithromax and Solu-Medrol in addition to bronchodilators. Hopefully this will be a short course and we will wean her from the antibiotics by 5 days which would be 2/4. 04/23 patient clinically greatly improved, extubated 04/24 patient doing well extubated to work on mobilizing her and discharge plan. Acute diastolic CHF-echo normal 04/20, BNP elevated hard to assess in the setting of CKD4, will give 1 dose furosemide 04/21, renal function only moderately worse deferred to pulmonary whether to give more diuresis. IV fluids discontinued 04/20. Volume status is not entirely clear. Hypernatremia- 1/2 NS 100 mL 04/21, Na 145 04/22, 144 04/23, 142 04/24 Acute respiratory failure-patient having CO2 retention and hypoxemia BiPAP , furosemide 40mgIV/1U PRBCs 04/20 in pm, VQ low probability, CT shows consolidations/effusion consistent with pneumonia. Intubated 04/22 about 2 AM... extubated 04/23, doing well Bilateral pneumonia/effusion/COPD- not really enough to account for therapeutic purpose, and there is risk for diagnostic so we will go ahead and treat for pneumonia. I am going to go ahead and treat with Rocephin 04/22-/ Zithromax 04/22-04/25 04/22- and Solu-Medrol>prednisone 04/24 Afib, chronic- RVR mod a/s- rate control with digoxin/metoprolol transitioning to PO 04/24. aspirin 325mg for anticoagulation. CHADS-VASC score 5. reportedly scheduled for eval for LA appendage occlusion device. Digoxin loading/metoprolol or rate control. pt not on full anticoagulation 2' bleed risk we will not be starting it here 04/22 Possible ischemic colitis, acute. R sided colitis . Unfortunately, given her Stage 4 CKD (Cr 2.81), angiography is not plausible at this time. No colonoscopy for now 04/20 surgery signing off 04/21. Also recommend obtaining records of colonoscopy and [facility] from [facility]. Stool PCR 04/17 still pending. CKD4- Cr 2.8 aprox stable subce 03/10 monitor and avoid nephro toxic drugs, Bun/Cr 52/2.65 04/23 HTN-patient is lowish blood pressures going to discontinue the felodipine in order to optimize rate control with rate controlling BP meds, SBP 120-130 04/23, rate 60-70s Hx gastric ulcers ?acute GIB? Hasn't taken H2 blockers in two weeks. Hb stable at about 8.0. cont IV H2 blockers stopped 04/21, monitor Hgb/Hct, transfuse prn, on famotidine due to omeprazole allergy 04/23 Iron deficiency anemia-iron studies low 04/19 new from 03/10, hg aprox stable 9.0 03/10, transfuse 1 unit PRBC 04/20 to optimize patient, will give IV iron 200 makes alternating days for total of 1 g starting 04/21-05/01, Hg 8.0 04/20, 9.6 04/21, 9.1 04/22, 9.1 04/23 Prophylaxis-DVT, SCDs only anticoagulation contraindicated, GI patient on IV famotidine at this point in time Disposition-full code from home GI Prophylaxis: H2 shabnam VTE Prophylaxis: SCDs VTE Mechanical Devices: Intermittant Pneumatic CD Resuscitation Status: CPR: Attempt Resuscitation GI Prophylaxis: H2 shabnam VTE Prophylaxis: SCDs VTE Mechanical Devices: Intermittant Pneumatic CD Resuscitation Status: CPR: Attempt Resuscitation Everardo Hilliard MD Apr 24, 2016 07:32
--- NOTE | 2016-04-24 08:12 | DRSVH ---
PROCEDURE: X-RAY CHEST ONE VIEW, PORTABLE ([id number]) INDICATIONS: bibasilar pleural effusions, consolidation TECHNIQUE: One view of the chest was acquired. COMPARISON: [facility], CR, XR CHEST 1VW (PORTABLE), 04/23/2016, 4:49. FINDINGS: Surgical changes and devices: Surgical clips within the right neck. Lungs and pleura: Edema has diminished. Persistent small pleural effusions and bibasilar airspace op acities. No pneumothorax. Mediastinum: Mediastinal contours appear normal. Heart size is normal. Bones and chest wall: No suspicious bony lesions. Overlying soft tissues appear unremarkable. IMPRESSION: 1. Decrease in pulmonary edema. 2. Small pleural effusions and basilar airspace opacities redemonstrated consistent with compressive atelectasis, pneumonia or residual patchy pulmonary edema. Dictated by: Aaron Thorpe [facility] Interpreted: Sekou Ojeda MD on 04/24/2016 at 8:10 Transcribed by: LYNNE on 04/24/2016 at 8:11 Approved by: Sekou Ojeda M.D. on 04/24/2016 at 9:22
[2016-04-24] MEDS: cefTRIAXone 2,000 mg/D5W 50 mL IV Minibag Plus IV SCH ×2 (08:41)
[2016-04-24] MEDS: MethylprednisoLONE Sodium Succinate 62.5 mg/mL 2 mL Inj IVPUSH SCH (10:09)
--- NOTE | 2016-04-24 10:09 | PCM.PNMED ---
Subjective Date of Service Apr 24, 2016 Subjective Pulmonary consultation progress note: Problems: 1. Dyspnea in setting of likely COPD with possible component of anxiety. 2. Bilateral pulmonary infiltrates with surrounding pleural effusions. 3. Ischemic colitis. 4. Peripheral vascular disease. 5. Smoking addiction. 6. Metabolic acidosis with anion gap Subjective: Extubated 04/23/16, and doing well. No events overnight on oxygen supplementation by NC. Today, patient reports feeling much better than over the weekend. She reports occasional SOB at rest associated with increased anxiety (Ativan is helpful for both the anxiety and the SOB). She reports that she has otherwise been good, but has not been up and moving around yet. Speech has not been in to assess her yet. ROS otherwise negative except as noted above. Exam Vital Signs Vital Sign - Last Date Time Temp Pulse Resp B/P Pulse Ox O2 Delivery O2 Flow Rate FiO2 04/24/16 08:35 35.9 78 13 135/55 96 Nasal Cannula 5.00 04/23/16 08:37 40 Intake and Output 04/23/16 04/23/16 04/24/16 Cumulative From/Thru 15:00 23:00 07:00 04/17/16 21:07 - 04/23/16 17:31 Intake Total 1592 ml 09364 ml Output Total 650 ml 9000 ml Balance 942 ml 4188 ml Intake Oral 0 ml 2680 ml IV Total 1482 ml 9728 ml Tube Feeding 30 ml 122 ml Packed Cells 358 ml Tube Irrigant 80 ml 300 ml Output Urine Total 650 ml 8600 ml Stool Total 100 ml Urine/Stool Mix 300 ml Gastric Drainage Total 0 ml # Voids 4 # Bowel Movements 1 4 Exam GEN: obese elderly female lying in hospital bed in no acute distress on NC at 5L /min. HEENT: PERRL, EOMi, moist membranes. CHEST: Diminished in the bases, but otherwise clear throughout. Normal effort. CV: irregularly irregular with holosystolic murmur. Radials 2+ b/l. ABD: Soft, BT present, nontender. EXT: No edema. UOP 2400cc yesterday, and 1150cc so far today. Total fluid balance +4.1L. Lines: Correia, peripheral IV access IVs and Medications IV Fluids NS at 100cc/hr (now stopped) Medications Reviewed: Medications were reviewed in detail Medications Ceftriaxone IV steroid at 80 q24h Lab and Diagnostics PMN 85% Procal 4.77, today's pending MRSA negative Guaiac negative Result Diagram: 04/24/16 0250 04/24/16 0250 X-Rays, CTs and MRIs CXR today shows decrease in fluid overload, and persistent b/l atelectasis with effusions. Cardiac Echo Impressions Left ventricular wall thickness is mildly increased. The ejection fraction is estimated to be 60-65%. The left atrium is severely dilated. The aortic valve is trileaflet. There is moderate aortic stenosis. There has been no significant change since the previous study. There is mild to moderate tricuspid regurgitation. The right ventricular systolic pressure is estimated at 51 mmHg assuming a right atrial pressure of 15 mm Hg. Assessment & Plan 1. Hypoxic, Hypercapnic respiratory failure. Doing reasonably well following extubation 04/23/16. Currently on 5L/min via NC. PRN Ativan helpful for SOB and anxiety. 2. Atelectasis and pleural effusions. Still unclear as to the etiology ( cardiac echo as above). On broad-spectrum antibiotics with Ceftriaxone (it looks like Azithromycin was considered in addition, but never given), and her Procalcitonin yesterday was 4.77. Given her significant improvement, we stopped IV fluid. Recommend diurese with an additional dose of Lasix 40mg IV. 3. Smoking addiction. Suspect she has significant underlying obstructive airways disease. That remains to be determined. Will continue bronchodilators and steroids for today, and reassess tomorrow. Will likely need long-acting medication (such as Spiriva) at time of discharge. 4. AG metabolic acidosis. Likely related to her renal failure. Lactic acid has been negative throughout hospitalization. No ketones. No indication of additional nongap acidosis. Fluid and management per primary hospitalist team. PLAN: 1. Stopped IVF. 2. Continue IV antibiotics. 3. Added procalcitonin to this morning's blood work. 4. See if we can get more improvement with diuresis if tolerated. 5. Continue bronchodilators and steroids today. Time spent in direct patient care 30 minutes. Attending Statement I have seen and examined this patient with the resident physician. Vital signs , labs, imaging have been reviewed. I agree with the assessment and plan above. Please refer to my separately dictated progress note for any modifications to above. Myrna Najera M.D. Pulmonary and Critical Care medicine Pager [phone] Luis Lion DO Apr 24, 2016 10:08 Myrna Najera MD Apr 24, 2016 16:16
--- NOTE | 2016-04-24 10:59 | NUR ---
Evaluation completed. Please go to "Notes" then click on "Assessments and Notes" (bottom left corner of screen). Then select appropriate discipline tab on top of screen.
--- NOTE | 2016-04-24 11:01 | NUR ---
Social Work Note: Continued Discharge Planning Data& Assessment: SW met with pt and pt son at bedside to discuss discharge planning, SW role explained. Pt was extubated yesterday. PT evaluation pending. SW provided pt and pt son with SNF/HH list for preferences depending on what PT recommends. SW explained that would need to obtain [facility] authorization if that is what PT recommends and they can either approve or deny the SNF stay. Pt son Gasper explained that pt may discharge to his home. SW phone number written on pt white board. Pt and pt son deny any other needs at this time. SW to continue follow. Plan:. Anticipated discharge to SNF when medically ready. SW to follow up with pt and pt family regarding discharge planning after PT evaluation is complete. SNF list provided just in case. Pt and pt son deny any other needs at this time. SW to continue follow. YOLANDE Villafana
--- NOTE | 2016-04-24 11:04 | NUR ---
HIMANSHU signed by pt son. YOLANDE Villafana
--- NOTE | 2016-04-24 11:39 | NUR ---
NUTRITION FOLLOW-UP Assess: 75 YO F admitted with ischemic colitis. Pt required intubation for respiratory failure. Pt was extubated 04/23. Diet advanced to full liquids. PMHx: Aortic stenosis, carotid artery stenosis, CKD Stage 4, COPD, Degenerative joint disease, HNT, HLP, Peripheral vascular disease, upper GI bleed, history of gastric ulcers, cholecystectomy. LABS: BUN 53, Cr 2.52, Glu 109, Ca 8.2 MEDICATIONS: Reviewed. Solu-medrol. DIET: Full liquids + Ensure q tray. No current PO intake recorded. GI: 1 BM 04/23. SKIN: No skin issues noted. ANTHROPOMETRICS: Current Wt: 84.4 kg, BMI: 29.1 kg/m2, Admit Wt: 82 kg (BMI: 30.1 kg/m2), IBW: 56.8 kg ESTIMATED NEEDS: BMI, COPD Calories: 8011-6407 kcal/day (22-25 kcal/kg Admit BW) Protein: 85-100 g/day (1.5-1.8 g/kg IBW) Fluids: Approx 2000 ml (~1 ml/kcal/day) NUTRITION DIAGNOSIS: 1) Inadequate oral intake related to GI abnormalities as evidenced by intubation/NPO status - IMPROVING. 2) Increased nutrient needs related to chronic illness as evidenced by COPD - IMPROVING. INTERVENTION: 1) Diet advancement per speech therapy. MONITOR/EVALUATE: PO intake, diet advance/tolerance, GI, labs, nutrition status, POC. Follow per moderate nutrition risk guidelines.
[2016-04-24] MEDS: Digoxin 0.25 mg/mL 2 mL Inj IV SCH (12:53)
--- NOTE | 2016-04-24 14:08 | PCM.PNMED ---
Subjective Date of Service Apr 24, 2016 Subjective Patient reports improving shortness of breath, coughing and wheezing today. She denies N/V/D, states she has been having soft stool and passing gas. Denies abdominal pain, fevers, or chills. She states she has been tolerating her diet so far with improving appetite. Exam Vital Signs Vital Sign - Last Date Time Temp Pulse Resp B/P Pulse Ox O2 Delivery O2 Flow Rate FiO2 04/24/16 12:53 77 04/24/16 11:17 14 96 Nasal Cannula 4.00 04/24/16 08:35 35.9 135/55 04/23/16 08:37 40 Intake and Output 04/23/16 04/23/16 04/24/16 Cumulative From/Thru 15:00 23:00 07:00 04/17/16 21:07 - 04/23/16 17:31 Intake Total 1592 ml 59730 ml Output Total 650 ml 9000 ml Balance 942 ml 4188 ml Intake Oral 0 ml 2680 ml IV Total 1482 ml 9728 ml Tube Feeding 30 ml 122 ml Packed Cells 358 ml Tube Irrigant 80 ml 300 ml Output Urine Total 650 ml 8600 ml Stool Total 100 ml Urine/Stool Mix 300 ml Gastric Drainage Total 0 ml # Voids 4 # Bowel Movements 1 4 Exam General: Alert, Oriented X1, Cooperative. No acute distress. Head: Normocephalic, atraumatic. External ears normal. Eyes: PERRLA, EOMI. Anicteric sclerae. Mouth: Mouth Normal, Mucous Membranes Moist/[place] Neck: Neck supple with full range of motion. Chest & Lungs: Bilateral expiratory wheezes Cardiovascular: Irregularly irregular, Normal S1, Normal S2, Loud systolic murmur heard at right upper sternal border. Abdomen: No tenderness to palpation. Non-distended, No masses, Hypoactive bowel tones Musculoskeletal: Normal Range of Motion Extremities: No cyanosis/clubbing/edema bilaterally Neurological: Grossly Neurologically Intact, Normal Speech Lab and Diagnostics Result Diagram: 04/24/16 0250 04/24/16 0250 X-Rays, CTs and MRIs X-RAY CHEST ONE VIEW, PORTABLE -personally/concurrently reviewed by Arminda 1. Decrease in pulmonary edema. 2. Small pleural effusions and basilar airspace opacities redemonstrated consistent with compressive atelectasis, pneumonia or residual patchy pulmonary edema. Dictated by: Aaron Thorpe RRA Interpreted: Sekou Ojeda MD on 04/24/2016 at 8:10 X-RAY CHEST ONE VIEW, PORTABLE 1. Increased bilateral lower lung pneumonia. 2. Moderate CHF. Dictated by: Vanessa Sandoval M.D. on 04/23/2016 at 7:41 Cardiac Echo Impressions Left ventricular wall thickness is mildly increased. The ejection fraction is estimated to be 60-65%. The left atrium is severely dilated. The aortic valve is trileaflet. There is moderate aortic stenosis. There has been no significant change since the previous study. There is mild to moderate tricuspid regurgitation. The right ventricular systolic pressure is estimated at 51 mmHg assuming a right atrial pressure of 15 mm Hg. Assessment & Plan Patient is a 75 year old female with a history of GERD, gastric ulcers, peripheral vascular disease, afib, and aortic stenosis. She is a direct transfer to [facility] from [place]. She presented to that ED on 04/17/16 with a 24 hour history of severe, constant abdominal pain. History of upper GI bleeding with ulceration. CT done at [place] shows possible ischemic colitis. Admitted to [facility] for further evaluation and management of ischemic colitis. Ischemic colitis, acute. Resolving. - Pt has history of afib not adequately anticoagulated, severe abdominal pain, CT findings suspicious of ischemic colitis. Right sided colitis carries a poorer prognosis than left-sided. Given her Stage 4 CKD (Cr 2.81), angiography is not possible at this time. Will hold off on colonoscopy based on discussion with surgery. She has improved significantly with medical management and has been tolerating advances in her diet, passing gas and stool, with minimal to no abdominal pain at this time. - We will sign off for now, as her symptoms appear to be nearly resolved. Please do not hesitate to contact us with any further questions or concerns. - Continue to advance diet as tolerated; full liquid diet for about 2 more days , then advance to low-fat, low-protein diet for the next 2 weeks. History of gastric ulcers with possible acute GI bleed. Stable. - Pt denies dark stool but has history of gastric ulcers and had guaiac positive stool. Hb has been stable around 9. - Continue IV Famotidine at this time. - Continue to monitor Hgb/Hct. - Transfuse if necessary Erasto Medina Apr 24, 2016 14:08
--- NOTE | 2016-04-24 14:38 | NUR ---
Evaluation completed. Please go to "Notes" then click on "Assessments and Notes" (bottom left corner of screen). Then select appropriate discipline tab on top of screen.
[2016-04-25] VITALS (12 sets, daily range): BP systolic 115–144; BP diastolic 53–72; PULSE 64–86; RESP 16–20; O2SAT 95–98
--- NOTE | 2016-04-25 06:16 | NUR ---
Mentation Pt alert and orientated times three during entire shift. Pt slept comfortably and called twice to have quality analyst/technical writer assist with repositioning in bed. No concerns voiced.
--- NOTE | 2016-04-25 08:09 | PCM.PNMED ---
Subjective Date of Service Apr 25, 2016 Subjective Patient's breathing is improving, no chest pain, no nausea or vomiting anxious to go home and walk Exam Vital Signs Vital Sign - Last Date Time Temp Pulse Resp B/P Pulse Ox O2 Delivery O2 Flow Rate FiO2 04/25/16 06:32 Supplement Oxygen 04/25/16 03:48 36.5 78 20 136/61 96 2.50 04/23/16 08:37 40 Intake and Output 04/24/16 04/24/16 04/25/16 Cumulative From/Thru 15:00 23:00 07:00 04/17/16 21:07 - 04/25/16 06:32 Intake Total 50 ml 690 ml 09019 ml Output Total 1250 ml 12445 ml Balance 50 ml -560 ml 3678 ml Intake Oral 690 ml 3370 ml IV Total 50 ml 9778 ml Tube Feeding 122 ml Packed Cells 358 ml Tube Irrigant 300 ml Output Urine Total 1250 ml 9850 ml Stool Total 100 ml Urine/Stool Mix 300 ml Gastric Drainage Total 0 ml # Voids 4 # Bowel Movements 4 Exam Gen.-Awake, pleasant and appropriate Eyes-open, conjunctivae clear, pupils equal ENT- ears normal, nose normal Neck- supple/trach midline CVS- RRR Lungs no evidence of respiratory distress Musc- moving 4 no obvious deformity Neuro- cranial nerves II through XII intact to gross examination, nonfocal Skin- warm and dry, no rashes/lesions/wounds noted Psych-pleasant and appropriate already asking about discharge Lab and Diagnostics Result Diagram: 04/24/16 0250 04/24/16 0250 X-Rays, CTs and MRIs X-RAY CHEST ONE VIEW, PORTABLE -personally/concurrently reviewed by Arminda 1. Decrease in pulmonary edema. 2. Small pleural effusions and basilar airspace opacities redemonstrated consistent with compressive atelectasis, pneumonia or residual patchy pulmonary edema. Dictated by: Aaron Thorpe RRA Interpreted: Sekou Ojeda MD on 04/24/2016 at 8:10 X-RAY CHEST ONE VIEW, PORTABLE 1. Increased bilateral lower lung pneumonia. 2. Moderate CHF. Dictated by: Vanessa Sandoval M.D. on 04/23/2016 at 7:41 Cardiac Echo Impressions Left ventricular wall thickness is mildly increased. The ejection fraction is estimated to be 60-65%. The left atrium is severely dilated. The aortic valve is trileaflet. There is moderate aortic stenosis. There has been no significant change since the previous study. There is mild to moderate tricuspid regurgitation. The right ventricular systolic pressure is estimated at 51 mmHg assuming a right atrial pressure of 15 mm Hg. Assessment & Plan Patient is a 75 year old female with a history of GERD, gastric ulcers, peripheral vascular disease, afib, and aortic stenosis. She is a direct transfer to [facility] from [place]. She presented to that ED on 04/17/16 with a 24 hour history of severe, constant abdominal pain. Patient went into respiratory failure and was intubated 04/21 overnighte diuresed her and treated COPD exacerbation she was extubated 04/23. She has done quite well since then surgery is signed off and she is ready to go to [facility] [place] 04/26 Acute respiratory failure-patient having CO2 retention and hypoxemia BiPAP , furosemide 40mgIV/1U PRBCs 04/20 in pm, VQ low probability, CT shows consolidations/effusion consistent with pneumonia. Intubated 04/22 about 2 AM... extubated 04/23, doing well 04/25/30 Bilateral pneumonia/effusion/COPD- not really enough to account for therapeutic purpose, and there is risk for diagnostic so we will go ahead and treat for pneumonia. I am going to go ahead and treat with Rocephin 04/22-04/25/ Zithromax 04/22-04/25 04/22- and Solu-Medrol>prednisone 04/24 through 04/30 and cefuroxime for 5 more days through 04/30. Acute diastolic CHF-echo normal 04/20, BNP elevated hard to assess in the setting of CKD4, 1 dose furosemide 04/21, Hypernatremia- 03/27 NS 100 mL 04/21, Na 145 04/22, 144 04/23, 142 04/24 Afib, chronic- RVR mod a/s- rate control with digoxin/metoprolol transitioning to PO 04/24. aspirin 325mg for anticoagulation. CHADS-VASC score 5. reportedly scheduled for eval for LA appendage occlusion device. Digoxin loading/metoprolol or rate control. pt not on anticoag beyond ASA 2' bleed risk we will not be starting it here 04/22 Possible ischemic colitis, acute. R sided colitis . given her Stage 4 CKD ( Cr 2.81), angiographypossible. No colonoscopy 04/20 surgery sign off 04/21. CKD4- Cr 2.8 aprox stable subce 03/10 monitor and avoid nephro toxic drugs, Bun/Cr 52/2.65 04/23, 53/2.53 04/24 HTN-patient is lowish blood pressures going to discontinue the felodipine in order to optimize rate control with rate controlling BP meds, SBP 130s pulse- 70s1/31 Hx gastric ulcers ?acute GIB? Hasn't taken H2 blockers in two weeks. Hb stable at about 8.0. cont IV H2 blockers stopped 04/21, monitor Hgb/Hct, transfuse prn, on famotidine due to ppi allergy 04/23 Iron deficiency anemia-iron studies low 04/19 new from 03/10, hg aprox stable 9.0 03/10, transfuse 1 unit PRBC 04/20 to optimize patient, will give IV iron 200 makes alternating days for total of 1 g starting 04/21-05/01, Hg 8.0 04/20, 9.6 04/21, 9.1 04/22, 9.1 04/23 Prophylaxis-DVT, SCDs only anticoagulation contraindicated, GI patient on IV famotidine at this point in time Disposition-full code from home Plan for patient to be on 12:00 very to [place] to [facility] 04/26. VTE Mechanical Devices: Intermittant Pneumatic CD Everardo Hilliard MD Apr 25, 2016 08:09
[2016-04-25] MEDS: Albuterol-Ipratropium 3 mL Inhalation Solution NEB SCH ×3 (08:19→16:49)
--- NOTE | 2016-04-25 08:46 | PROG NOTE ---
[address] [address] PROGRESS NOTE PATIENT: BEHZAD RODRÍGUEZ : 1940 MR#: [id number] ADMIT: 04/17/2016 JOB ID: [id number] DATE: 04/24/2016 PULMONARY PROGRESS NOTE: The patient is a 75-year-old woman seen for ischemic colitis and acute respiratory failure. The patient was seen and evaluated with resident physician, Luis Lion DO. Please refer to his separate detailed note for additional information. The following is an addendum. INTERVAL HISTORY: She was extubated yesterday and is stable on about 4 L nasal cannula currently. She is somewhat lethargic, but answering questions appropriately. She has cough and some sputum but denies any abdominal pain, fevers, or chills. REVIEW OF SYSTEMS: As above. PHYSICAL EXAMINATION: Vital signs reviewed. She is on 4 L nasal cannula. General: Obese woman, lying in bed, slightly lethargic but answering questions appropriately. Chest is clear to auscultation. Heart: She has a systolic murmur heard all over the precordium. LABORATORIES: Reviewed. Echo also reviewed and notable for moderate aortic stenosis and severely dilated left atrium. RVSP estimated 51 mm. ASSESSMENT AND RECOMMENDATIONS: 1. Acute hypoxic respiratory failure--extubated 04/23. 2. Ischemic colitis. 3. Moderate aortic stenosis. 4. Acute on chronic kidney injury. This 75-year-old woman is doing well post extubation but is still on some oxygen. I requested some incentive spirometry. She is also about 2 kg up still since admission so I think we can continue with diuresis as tolerated by kidneys. From a respiratory standpoint, we have nothing else to add. Pulmonary Service is available for questions, if any. Please contact us if needed, but we will sign off right now. EUGENE
[2016-04-25] MEDS: MethylprednisoLONE Sodium Succinate 62.5 mg/mL 2 mL Inj IVPUSH SCH (09:27)
[2016-04-25] MEDS: cefTRIAXone 2,000 mg/D5W 50 mL IV Minibag Plus IV SCH ×2 (09:27)
[2016-04-25] MEDS ORDERED: 0.9% Sodium Chloride 250 ML ONE (09:29)
--- NOTE | 2016-04-25 10:36 | NUR ---
Called [facility] and faxed referral, let facility know patient comes from [place] and would like to return. Also spoke with Paige Jean Baptiste CM at [facility] and asked for review on transfer to SNF today. CHIP WASHER aware of plan. Addendum: 04/25/16 at 1115 by [facility] Updated CHIP WASHER Addendum: 04/25/16 at 1319 by DANG MORALES CM Paige ROJO at [facility] approved patient for transfer to SNF when ready. Updated CHIP WASHER
--- NOTE | 2016-04-25 16:12 | NUR ---
Social Work Note: Continued Discharge Planning Data& Assessment: SW confirmed pt is accepted at [facility] on Sunday and [facility] Authorization approved. Pt will need to be discharged by 12:30p.m. on the day she is medically ready in order to make the 2:00p.m ferry to [place]. notified. Pt daughter updated on acceptance, she is happy pt will be able to be close to home. No other discharge needs identified. Plan: Anticipated discharge to [facility] SNF on Sunday when medically ready. Pt will need to be discharged by 12:30p.m. on the day she is medically ready in order to make the 2:00p.m ferry to [place]. All updated and agreeable to plan. YOLANDE Villafana
--- NOTE | 2016-04-25 19:28 | NUR ---
Mentation/activity Pt slightly anxious about her recent delirium. She is concerned that she can not remember about being intebated. She has also been told by her family about her behaviors, which also makes her anxious. Pt is pleasant A&O X3. NARANJO. Cooperative with care. Pt up with Pt today. Recommended 1PA to [facility]. Pt refusing to transfer to [facility], requesting to use bedpan at this time. Pt states that she feels very weak and has concerns about getting weak with activity.
--- NOTE | 2016-04-25 19:36 | PCM.DIMED ---
Discharge Instructions Date of Service Apr 25, 2016 Dates of Hospitalization Apr 17, 2016 at 21:04 Discharge Diagnosis Discharge Diagnosis Abdominal pain likely ischemic colitis, acute respiratory failure secondary to CHF/COPD Diet Heart Healthy, Diabetic, Renal Diet Activity No restrictions Call your provider Shortness of breath, Chest pain Patient Instructions Going to [facility] [place] to get strong enough to go home. Quit smoking Follow-up Provider: Fredi Rivas MD Follow-up with PCP in: Other (as soon as possible) Provider: Karime Lenz MD Follow-up in: Other (call to reschedule ERENDIRA evaluation after acute illness) Attending's Statement Patient got respiratory failure while being treated for what seemed to be Everardo Hilliard MD Apr 25, 2016 19:36
[2016-04-25] MEDS ORDERED: ALBU2.5V4 NEB (19:45)
[2016-04-25] MEDS ORDERED: LORA-302 PO (19:45)
[2016-04-25] MEDS ORDERED: Acetaminophen PO (19:45)
[2016-04-25] MEDS ORDERED: METO25TA6 PO (19:45)
[2016-04-25] MEDS ORDERED: PRE20 PO (19:45)
[2016-04-25] MEDS ORDERED: LAN125 PO (19:45)
[2016-04-25] MEDS ORDERED: NEBU-145 MC (19:46)
[2016-04-25] MEDS: LORazepam 0.5 mg Tablet PO PRN (20:15)
--- NOTE | 2016-04-26 03:45 | NUR ---
Tele/ RA/ DCSNF Assumed care @ 0300 for Jeanne Ulloa RN . on room air, tele A-fib 70-80, saline locked , A&O x3 , will DC to [facility] Sun AM for Rehab .
[2016-04-26 04:12] VITALS: BP 131/64; PULSE 68; RESP 18; O2SAT 96
[2016-04-26 07:19] VITALS: PULSE 74; RESP 16; O2SAT 92
[2016-04-26] MEDS: Albuterol-Ipratropium 3 mL Inhalation Solution NEB SCH (07:19)
--- NOTE | 2016-04-26 08:49 | NUR ---
Social Work Note/DCP continued: Received notification pt. okay to d/c to SNF today. SOLOIST DANCER reviewed previous notes. Current plan is for pt. to d/c to [facility]. Placed call to admit at facility, spoke with Ledy and she reports that she needs to double check with administration re: admit. Received return phone call from Ledy indicating pt. okay to come to [facility] today. Pt. does not meet criteria for S transport. Therefore, placed call to p.t' s daughter Kym at [phone] she reports that she can provide transport. [facility] [place] [facility] is at 2:10pm. Kym reports that she will be here to pick pt. up between 12:30-1:00pm. Daughter requesting pt. be ready because she will not have much time to get to [facility]. Asked МАРИНА/Rachel to fax orders, copy of scripts, PASRR, and completed ferry priority boarding paperwork.She is agreeable. Left note with RN that pt. needs to be ready for departure no later than 12:30pm. P: [facility] today via private auto (daughter). No additional needs identified. YOLANDE Rivera
[2016-04-26 09:29] VITALS: BP 131/60; PULSE 75; RESP 20; O2SAT 96
[2016-04-26] MEDS: cefTRIAXone 2,000 mg/D5W 50 mL IV Minibag Plus IV SCH ×2 (09:35)
[2016-04-26] MEDS: MethylprednisoLONE Sodium Succinate 62.5 mg/mL 2 mL Inj IVPUSH SCH (09:39)
--- NOTE | 2016-04-26 12:18 | NUR ---
Discharge Pt discharge to [facility] at Sunday, for transportation POV by her daughter. Pt's belongings were packed to be transported with her. Report was called to Ledy SALDANA at [facility]. Pt's IV's dc'd intact and telemetry removed, tech notified. Pt escorted of unit to vehicle by LAURITA.
--- NOTE | 2016-04-26 13:01 | PCM.DC.MED ---
Discharge Summary Date of Service Apr 26, 2016 Dates of Hospitalization Date of Hospital Admission Apr 17, 2016 at 21:04 Date of Discharge: Apr 26, 2016 Providers: Admitting Physician: Dipesh Carolina MD Primary Care Physician: Fredi Rivas MD Attending Physician: Dipesh Carolina MD Diagnosis at Time of Discharge Diagnosis at Time of Discharge Abdominal pain likely ischemic colitis, acute respiratory failure secondary to CHF/COPD Consultations Gastroenterology Procedures XRay, CTs & MRIs X-RAY CHEST ONE VIEW, PORTABLE -personally/concurrently reviewed by Arminda 1. Decrease in pulmonary edema. 2. Small pleural effusions and basilar airspace opacities redemonstrated consistent with compressive atelectasis, pneumonia or residual patchy pulmonary edema. Dictated by: Aaron Thorpe [facility] Interpreted: Sekou Ojeda MD on 04/24/2016 at 8:10 X-RAY CHEST ONE VIEW, PORTABLE 1. Increased bilateral lower lung pneumonia. 2. Moderate CHF. Dictated by: Vanessa Sandoval M.D. on 04/23/2016 at 7:41 Cardiac Echo Impression Left ventricular wall thickness is mildly increased. The ejection fraction is estimated to be 60-65%. The left atrium is severely dilated. The aortic valve is trileaflet. There is moderate aortic stenosis. There has been no significant change since the previous study. There is mild to moderate tricuspid regurgitation. The right ventricular systolic pressure is estimated at 51 mmHg assuming a right atrial pressure of 15 mm Hg. Invasive Procedures None Other Diagnostics Duplex mesenteric ultrasound was attempted Sunday after admit however signal is difficult to appreciate given gas and body habitus. Brief History Patient is a 75 year old female with a history of GERD, gastric ulcers, peripheral vascular disease, and aortic stenosis. She is a direct transfer to [facility] from [place]. She presented to that ED on 04/17/16 with a 24 hour history of severe, constant abdominal pain. It is predominantly located in the RUQ and she describes it as sharp in nature. It caused nausea but no vomiting. She has had diarrhea but denies bloody stool or black looking stool. It is similar to the abdominal pain she had in the past when she had ulcers. She reports having been out of her ranitidine for the last two weeks. She denies fever, chills, chest pain, shortness of breath or edema. She denies dysuria, hematuria. Her last EGD and colonoscopy were March 2015. EGD showed bleeding ulcers, colonoscopy was normal. Pill cam on September 2015 was apparently normal. She is on Aspirin for her afib but not warfarin due to her history of upper GI bleed. She was scheduled for evaluation for a left atrial appendage occlusion device in the near future. Lab results sent over with the patient show a WBC 14.5, Hgb 9.3, Hct 26.9, platelets 213, sodium 139, potassium 3.3, chloride 97, CO2 26, BUN 65, Creatinine 2.91, glucose 90. Total bilirubin 0.6, ALT 10, AST 24. Hospital Course Patient is a 75 year old female with a history of GERD, gastric ulcers, peripheral vascular disease, afib, and aortic stenosis. She is a direct transfer to [facility] from [place]. She presented to that ED on 04/17/16 with a 24 hour history of severe, constant abdominal pain. Patient went into respiratory failure and was intubated 04/21 overnighte diuresed her and treated COPD exacerbation she was extubated 04/23. She has done quite well since then surgery is signed off and she is ready to go to [facility] [place] 04/26 Acute respiratory failure-patient having CO2 retention and hypoxemia BiPAP , furosemide 40mgIV/1U PRBCs 04/20 in pm, VQ low probability, CT shows consolidations/effusion consistent with pneumonia. Intubated 04/22 about 2 AM... extubated 04/23, doing well 04/25/30 Bilateral pneumonia/effusion/COPD- not really enough to account for therapeutic purpose, and there is risk for diagnostic so we will go ahead and treat for pneumonia. I am going to go ahead and treat with Rocephin 04/22-04/25/ Zithromax 04/22-04/25 04/22- and Solu-Medrol>prednisone 04/24 through 04/30 and cefuroxime for 5 more days through 04/30. Acute diastolic CHF-echo normal 04/20, BNP elevated hard to assess in the setting of CKD4, 1 dose furosemide 04/21, Hypernatremia- 1/2 NS 100 mL 04/21, Na 145 04/22, 144 04/23, 142 04/24 Afib, chronic- RVR mod a/s- rate control with digoxin/metoprolol transitioning to PO 04/24. aspirin 325mg for anticoagulation. CHADS-VASC score 5. reportedly scheduled for eval for LA appendage occlusion device. Digoxin loading/metoprolol or rate control. pt not on anticoag beyond ASA 2' bleed risk we will not be starting it here 04/22 Possible ischemic colitis, acute. R sided colitis . given her Stage 4 CKD ( Cr 2.81), angiographypossible. No colonoscopy 04/20 surgery sign off 04/21. CKD4- Cr 2.8 aprox stable subce 03/10 monitor and avoid nephro toxic drugs, Bun/Cr 52/2.65 04/23, 53/2.53 04/24 HTN-patient is lowish blood pressures going to discontinue the felodipine in order to optimize rate control with rate controlling BP meds, SBP 130s pulse- 70s1/31 Hx gastric ulcers ?acute GIB? Hasn't taken H2 blockers in two weeks. Hb stable at about 8.0. cont IV H2 blockers stopped 04/21, monitor Hgb/Hct, transfuse prn, on famotidine due to ppi allergy 04/23 Iron deficiency anemia-iron studies low 04/19 new from 03/10, hg aprox stable 9.0 03/10, transfuse 1 unit PRBC 04/20 to optimize patient, will give IV iron 200 makes alternating days for total of 1 g starting 04/21-05/01, Hg 8.0 04/20, 9.6 04/21, 9.1 04/22, 9.1 04/23 Prophylaxis-DVT, SCDs only anticoagulation contraindicated, GI patient on IV famotidine at this point in time Disposition-full code from home Plan [facility] This patient has no history of atrial fibrillation and peripheral vascular disease as well as aortic stenosis and previous gastric ulcers. She presented with right lower quadrant abdominal pain and CT scan was indicative of probable ischemic colitis. She was treated empirically with fluids and analgesia and did not improve. She became acutely dyspneic at rate requiring initial BiPAP support for both hypoxic and hypercarbic respiratory failure and ultimately required intubation. Diuresis for probable acute on chronic diastolic heart failure relating to her unknown aortic stenosis as well as a possible pulmonary infection. Ultimately she improved and was extubated. The day of discharge is breathing comfortably on room air and had no wheezing. Her chronic kidney disease stage IV remained stable throughout her stay. Neck atrial fibrillation was rate controlled. It is noted that she is currently scheduled for a atrial appendage occlusion device at [facility] as she was not felt to be a good candidate for ongoing anticoagulation prior to admission because of her previous GI bleed. Exam Vital Signs (Last) Date Time Temp Pulse Resp B/P Pulse Ox O2 Delivery O2 Flow Rate FiO2 04/26/16 10:06 Supplement Oxygen 04/26/16 09:29 36.3 75 20 131/60 96 04/26/16 04:12 1.00 04/23/16 08:37 40 Exam Alert oriented 3. No distress. Lungs clear, normal effort and rate. Heart is irregular Abdomen is soft with minimal or no right lower quadrant tenderness. Extremities are free of edema. Good radial pulses Test 04/18/16 00:30 04/19/16 03:35 04/20/16 15:00 04/21/16 01:15 Urine Color Yellow (YELLOW) Urine Appearance Clear (CLEAR,HAZY) Urine pH 5.5 (5.0-8.0) Urine Specific Allison 1.020 (1.003-1.035) Urine Protein Negativemg/dL (NEG,TRACE) Urine Glucose (UA) Negativemg/dL (NEGATIVE) Urine Ketones Negativemg/dL (NEGATIVE) Urine Occult Blood Negative (NEGATIVE) Urine Nitrite Negative (NEGATIVE) Urine Bilirubin Negative (NEGATIVE) Urine Urobilinogen Normalmg/dL (NORMAL) Urine Leukocyte Esterase Negative (NEGATIVE) Urine RBC 0-2/hpf (0-2) Urine WBC 0-5/hpf (0-5) Urine Epithelial Cells Many/hpf (NONE-MOD) Urine Crystals None seen (NONE SEEN) Urine Bacteria Few/hpf (NONE-FEW) Urine Hyaline Casts None/lpf (NONE) Urine Granular Casts None seen (NONE SEEN) Urine Waxy Casts None seen (NONE SEEN) Urine Red Blood Cell Casts None seen (NONE SEEN) Urine White Blood Cell Casts None seen (NONE SEEN) Urine Mucus None seen (None Seen) Urine Trichomonas None seen (NONE SEEN) Urine Yeast None (NONE SEEN) Urinalysis Comment None Hold Urine Received (Received) Iron Level 13ug/dL (35-150) Total Iron Binding Capacity 233ug/dL (250-450) Percent Iron Saturation 6%sat (15-50) Unsaturated Iron Binding 220.1ug/dL D-Dimer 2.4mg/L (<0.50) Pro-B-Type Natriuretic Peptide 32245tf/mL (0-738) Creatine Kinase MB 1.7ng/mL (0.0-5.3) Creatine Kinase MB % % (0.0-5.0) Test 04/21/16 08:20 04/21/16 16:50 04/22/16 01:11 04/24/16 02:50 Total Creatine Kinase 23U/L (21-215) Troponin T < 0.010ug/L (0.0-0.011) Prothrombin Time 12.2sec (8.1-12.5) Prothromb Time International Ratio 1.14ratio Activated Partial Thromboplast Time 41.0sec (22.8-33.0) Lactic Acid Level 0.7mmol/L (0.4-2.0) Total Bilirubin 0.2mg/dL (0.0-1.2) Aspartate Amino Transf (AST/SGOT) 11U/L (0-50) Alanine Aminotransferase (ALT/SGPT) 5U/L (0-32) Alkaline Phosphatase 67U/L (25-165) Total Protein 5.4g/dL (6.4-8.4) Albumin 3.4g/dL (3.4-5.0) White Blood Count 6.7th/mm3 (3.8-10.1) Red Blood Count 2.63mil/mm3 (3.90-5.20) Hemoglobin 9.0g/dL (12.0-15.6) Hematocrit 27.2% (35.0-46.0) Mean Corpuscular Volume 103.4fL (81-100) Mean Corpuscular Hemoglobin 34.2pg (27.0-35.0) Mean Corpuscular Hemoglobin Concent 33.1% (32.0-37.0) Red Cell Distribution Width 15.4% (12.3-15.4) Platelet Count 198bil/L (150-400) Neutrophils (%) (Auto) 85.0% (40-74) Lymphocytes (%) (Auto) 7.8% (14-46) Monocytes (%) (Auto) 6.9% (4-12) Eosinophils (%) (Auto) 0% (0-5) Basophils (%) (Auto) 0% (0-3) Sodium Level 142mEq/L (134-144) Potassium Level 3.5mEq/L (3.5-5.2) Chloride Level 104mEq/L (97-108) Carbon Dioxide Level 20mmol/L (18-29) Blood Urea Nitrogen 53mg/dL (8-27) Creatinine 2.52mg/dL (0.57-1.00) Estimat Glomerular Filtration Rate 27mL/min (>59) Glucose Level 109mg/dL (60-99) Calcium Level 8.2mg/dL (8.5-10.1) Phosphorus Level 3.8mg/dL (2.5-4.9) Magnesium Level 2.3mg/dL (1.6-2.6) Procalcitonin 2.80ng/mL (See Comment) Discharge Medications Discharge Medications Aspirin (Aspirin) 325 Mg Tablet 325 MG PO DAILY (Reported) Cyanocobalamin (Vitamin B-12) (Vitamin B12) 2,500 Mcg Tab.chew 2,500 MCG PO DAILY (Reported) Digoxin (Lanoxin) 0.125 Mg Tablet 0.125 MG PO DAILY@12 Prescribed by: BETTY DINH MD Ezetimibe (Zetia) 10 Mg Tablet 10 MG PO DAILY (Reported) Felodipine ER (Felodipine ER) 5 Mg Tab.er.24h 5 MG PO BID (Reported) Gemfibrozil (Gemfibrozil) 600 Mg Tablet 600 MG PO BID (Reported) Metoprolol Tartrate (Metoprolol Tartrate) 25 Mg Tablet 25 MG PO BID Prescribed by: BETTY DINH MD Multivitamin (Multi Vitamin Daily) 1 Each Tablet 1 EACH PO DAILY (Reported) Prednisone (PredniSONE) 20 Mg Tablet 60 MG PO DAILY Prescribed by: BETTY DINH MD Ranitidine (Zantac) 150 Mg Tablet 300 MG PO BID (Reported) Triamcinolone Acet (Triamcinolone Acetonide Cream) 1 Applic/0.25 Gm Cr 1 APPLIC TOP BID (Reported) As needed ([Acetaminophen]) 325 MG TABLET 650 MG PO Q4H PRN PRN For Pain Prescribed by: BETTY DINH MD Albuterol Neb Soln (Albuterol Neb Soln) 2.5 Mg/3 Ml Vial.neb 2.5 MG NEB Q2H PRN PRN For Shortness of Breath Prescribed by: BETTY DINH MD Lorazepam (Ativan) 0.5 Mg Tablet 0.5-1 MG PO TID PRN PRN a Prescribed by: BETTY DINH MD Durable Medical Equipment Nebulizer (Aeroneb Go Nebuliser) 1 Each Each 1 EACH [facility] (DME) Prescribed by: BETTY DINH MD Followup Plan Disposition: [facility] facility, Sunday. She will be transferred there private vehicle with her daughter's help. Discharge Diet: Heart Healthy, Diabetic, Renal Diet Discharge Activity: No restrictions Patient Instructions Going to [facility] Sunday to get strong enough to go home. Quit smoking Follow-up Provider: Fredi Rivas MD Follow-up with PCP in: Other (as soon as possible) Provider: Karime Lenz MD Follow-up in: Other (call to reschedule ERENDIRA evaluation after acute illness) Time spent 45 minutes Chaka Abdul MD Apr 26, 2016 13:01
--- NOTE | 2016-05-24 18:21 | ABG ---
DateTimeAnalyzed 05:22:00 -_ pH ____7.380 - 7.350 7.450 pCO2 ___34.2__ -mmHg 35.0 45.0 pO2 137 -mmHg 69.0 116 HCO3- ___19.7__ -mmol/L ABE ___-4.3__ -mmol/L tHb ____8.8__ -g/dL O2Hb ___96.8__ -% COHb ____1.1__ -% MetHb ____1.0__ -% sO2 ___98.9__ -% FIO2 ___60.0__ -% Drawn By AF - Notified By AF - Notified Whom ____nurse - B 772 -mmHg tO2 ___12.3__ -Vol% OrderingPhysicianInitials mf - Chaka test _Positive -
== END 2016-04-26 13:05 | DRG 393 ==
LOC: OBSVTOIN 21:04 → PCC 21:04 → CCU 04-21 16:32 → PCC 04-21 16:39 → CCU 04-21 17:30 → PCC 04-24 10:27
PROVIDERS: ADMIT Hospitalist; ATTEND Hospitalist
PROC: 4A033R1 Measurement of Arterial Saturation, Peripheral, Percutaneous Approach (ICD-10-PCS; 2016-04-20)
PROC: 30233N1 Transfusion of Nonautologous Red Blood Cells into Peripheral Vein, Percutaneous Approach (ICD-10-PCS; 2016-04-20)
PROC: 5A1945Z Respiratory Ventilation, 24-96 Consecutive Hours (ICD-10-PCS; principal; 2016-04-22)
PROC: 0BH17EZ Insertion of Endotracheal Airway into Trachea, Via Natural or Artificial Opening (ICD-10-PCS; 2016-04-22)
DX: K55.039 Acute (reversible) ischemia of large intestine, extent unspecified (principal); J96.01 Acute respiratory failure with hypoxia; I50.31 Acute diastolic (congestive) heart failure; J18.9 Pneumonia, unspecified organism; N18.4 Chronic kidney disease, stage 4 (severe); E87.4 Mixed disorder of acid-base balance; K92.2 Gastrointestinal hemorrhage, unspecified; E87.0 Hyperosmolality and hypernatremia; I12.9 Hypertensive chronic kidney disease with stage 1 through stage 4 chronic kidney disease, or unspecified chronic kidney disease; E87.6 Hypokalemia; D63.1 Anemia in chronic kidney disease; F17.210 Nicotine dependence, cigarettes, uncomplicated; D50.9 Iron deficiency anemia, unspecified; K21.9 Gastro-esophageal reflux disease without esophagitis; I48.2 Chronic atrial fibrillation; J44.9 Chronic obstructive pulmonary disease, unspecified; I73.9 Peripheral vascular disease, unspecified